=== PATIENT | female | born 1960 | race Caucasian/White ===

== ENCOUNTER 2017-10-24 12:16 | Emergency (ER) | payer OTHER, MEDICAID, SELFPAY ==
[2017-10-24 12:29] VITALS: BP 128/80; PULSE 98; RESP 22; TEMP 36.4; O2SAT 99; BMI 28.3
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
--- NOTE | 2017-10-24 13:13 | DI.RAD.S_ITS ---
PROCEDURE: XR CHEST 2V INDICATIONS: right rib pain s/p fall TECHNIQUE: 2 views of the chest were acquired. COMPARISON: [facility], , CHEST 1 VIEW, 09/07/2017, 12:30. FINDINGS: Surgical changes and devices: None. Lungs and pleura: No pleural effusions or pneumothorax. Lungs are clear. Mediastinum: Mediastinal contours are normal. Heart size is normal. Bones and chest wall: No suspicious bony abnormalities. Soft tissues appear unremarkable. IMPRESSION: No trauma found, sources right-sided rib pain is not seen. Dictated by: Michael Deluca M.D. on 10/24/2017 at 14:15 Approved by: Michael Deluca M.D. on 10/24/2017 at 14:15
[2017-10-24] MEDS: OXYCODONE/ACETAMINOPHEN 5/325 TABLET 2 TAB PO (13:25)
[2017-10-24] MEDS: IBUPROFEN 400 MG TABLET 800 MG PO (13:26)
[2017-10-24] MEDS: diazePAM 5 MG TABLET PO (13:27)
[2017-10-24 14:27] VITALS: BP 99/66; PULSE 77; RESP 18; O2SAT 96
[2017-10-24 15:08] VITALS: BP 100/70; PULSE 78; RESP 16; O2SAT 98
== END 2017-10-24 15:10 | disposition home or self-care (01) ==
PROVIDERS: Emergency Provider Internal Medicine; PCP Internal Medicine
DX: S20.219A Contusion of unspecified front wall of thorax, initial encounter (principal); W54.1XXA Struck by dog, initial encounter
CPT/HCPCS: 71046; 99283

== ENCOUNTER 2017-10-29 20:29 | Emergency (ER) | payer OTHER, MEDICAID, SELFPAY ==
[2017-10-29 20:34] VITALS: BP 121/74; PULSE 96; RESP 18; TEMP 36.8; O2SAT 98; BMI 28.1
--- NOTE | 2017-10-29 20:44 | ED.BACK ---
HPI - Back Pain/Injury <Adilene Gonzalez PA-C - Last Filed: 10/29/17 22:03> General Chief Complaint: Back Pain/Injury Stated Complaint: RT RIB PAIN FALL 1 WEEK AGO Time Seen by Provider: 10/29/17 20:34 Source: patient and other (pharmacist) Mode of arrival: ambulatory Limitations: no limitations History of Present Illness HPI Narrative: This 57 year old female returns due to persistent right rib pain. I saw her last week, and she was unable to get her prescription due to needing a prior authorization with insurance. Her PCP did that after seen there on Wednesday. She saw him again today and he sent in a refill of Percocet to use instead of her regular [place], and again this could not be filled without prior authorization. Her doctor's office to the paperwork however when pharmacy tried to put this through still not getting approved. Her PCP Dr. Alves called her at home and advised her to come to the ED because he was unable to treat her pain due to the insurance issue. She denies any other new injury. She denies any new wheeze, dyspnea, cough or fever though she states it is still hard to take a deep breath due to rib pain, and she still feels a sort of bubbling sensation at times on the right side. She states that pain medications were helping significantly, but she has not had any today aside from taking ibuprofen earlier at home. Related Data Home Medications Medication Instructions Recorded Confirmed gabapentin 100 mg PO HS #0 05/25/17 acyclovir [Zovirax] 800 mg #0 09/07/17 albuterol sulfate [Proventil HFA] 1 puff INH #0 09/07/17 ascorbic acid (vitamin C) 2 tab PO QDAY #0 09/07/17 beclomethasone dipropionate [Qvar] 1 puff INH BID #0 09/07/17 calcium carbonate 1 tab PO QDAY #0 09/07/17 hydrocodone-acetaminophen 1 tab PO TIDP PRN #0 09/07/17 ibuprofen #0 09/07/17 levetiracetam [Keppra] 250 mg PO BID #0 09/07/17 lisinopril 2.5 mg PO MoWeFr #0 09/07/17 multivitamin [Multiple Vitamins] 1 tab PO QDAY #0 09/07/17 omega 8-soi-nza-fish oil [Fish Oil] 1,000 mg PO QDAY #0 09/07/17 vitamin B complex [B 1 tab PO QDAY #0 09/07/17 Complex-Vitamin B12] alprazolam 0.25 mg PO PRN 10/29/17 Previous Rx's Medication Instructions Recorded diazepam [Valium] 5 mg PO Q8H PRN #7 tab 10/24/17 oxycodone-acetaminophen [Percocet] 1 tab PO Q4-6H PRN #8 tab 10/24/17 Allergies Allergy/AdvReac Type Severity Reaction Status Date / Time cheese [CHEESE] Allergy Unknown Verified 10/29/17 20:45 codeine [CODEINE] Allergy Unknown Verified 10/29/17 20:45 Sulfa (Sulfonamide Allergy Unknown Verified 10/29/17 20:45 Antibiotics) [SULFA (SULFONAMIDE ANTIBIOTICS)] DARK CHOCOLATE Allergy Unknown Uncoded 09/08/17 12:22 Review of Systems <Adilene Gonzalez PA-C - Last Filed: 10/29/17 22:03> Review of Systems All systems reviewed & are unremarkable except as noted in HPI and below Exam <Adilene Gonzalez PA-C - Last Filed: 10/29/17 22:03> Narrative Exam Narrative: GENERAL APPEARANCE: Patient sitting comfortably, in no distress, tearful at times NECK/THYROID: Neck supple LUNGS: Clear to auscultation bilaterally. HEART: Regular rate and rhythm without murmur, normal S1, S2, no S3 or S4. CHEST: Tender to touch over R. inferior ribs midline to lateral ABDOMEN: Soft, NT, ND, + BS x 4 quadrants EXTREMITIES: No cyanosis or edema. NEUROLOGIC: Alert and oriented, normal speech, gait and coordination. Initial Vital Signs Initial Vital Signs: Vital Signs Temperature 98.2 F 10/29/17 20:34 Pulse Rate 96 H 10/29/17 20:34 Respiratory Rate 18 10/29/17 20:34 Blood Pressure 121/74 H 10/29/17 20:34 Pulse Oximetry 98 10/29/17 20:34 Vital signs prior to discharge: BP 102/68, pulse 79 <Cedrick Vaughn DO - Last Filed: 10/29/17 22:15> Initial Vital Signs Initial Vital Signs: Vital Signs Temperature 98.2 F 10/29/17 20:34 Pulse Rate 96 H 10/29/17 20:34 Respiratory Rate 18 10/29/17 20:34 Blood Pressure 121/74 H 10/29/17 20:34 Pulse Oximetry 98 10/29/17 20:34 Course <Adilene Gonzalez PA-C - Last Filed: 10/29/17 22:03> Hospital Course: I spoke with patient's pharmacy. They verified patient's account of this and inability to fill her valid prescription she has not received controlled substances other than from her PCP. She was given medication here. She was given a Percocet prepack to take home to use for the next 2 nights over the weekend and she will follow up with her PCP on Wednesday as planned Orders Ordered: Discontinued Medications Diazepam (Valium) 5 mg PO NOW ONE Stop: 10/29/17 20:57 Last Admin: 10/29/17 21:07 Dose: 5 mg Ibuprofen (Advil) 800 mg PO NOW ONE Stop: 10/29/17 20:57 Last Admin: 10/29/17 21:06 Dose: 800 mg Oxycodone/Acetaminophen (Percocet 5/325) 2 tab PO NOW ONE Stop: 10/29/17 20:57 Last Admin: 10/29/17 21:07 Dose: 2 tab Oxycodone/Acetaminophen (Endocet 5/325 Prepack) 1 bottle MISC SEEINSTR ONE Stop: 10/29/17 21:09 Last Admin: 10/29/17 22:00 Dose: 1 bottle Vital Signs - 8 hr 10/29/17 20:34 10/29/17 21:49 Temperature 98.2 F Pulse Rate 96 H 84 Respiratory Rate 18 16 Blood Pressure 121/74 H Blood Pressure [Right Arm] 102/68 Pulse Oximetry 98 98 <Cedrick Vaughn DO - Last Filed: 10/29/17 22:15> Orders Ordered: Discontinued Medications Diazepam (Valium) 5 mg PO NOW ONE Stop: 10/29/17 20:57 Last Admin: 10/29/17 21:07 Dose: 5 mg Ibuprofen (Advil) 800 mg PO NOW ONE Stop: 10/29/17 20:57 Last Admin: 10/29/17 21:06 Dose: 800 mg Oxycodone/Acetaminophen (Percocet 5/325) 2 tab PO NOW ONE Stop: 10/29/17 20:57 Last Admin: 10/29/17 21:07 Dose: 2 tab Oxycodone/Acetaminophen (Endocet 5/325 Prepack) 1 bottle MISC SEEINSTR ONE Stop: 10/29/17 21:09 Last Admin: 10/29/17 22:00 Dose: 1 bottle Vital Signs - 8 hr 10/29/17 20:34 10/29/17 21:49 Temperature 98.2 F Pulse Rate 96 H 84 Respiratory Rate 18 16 Blood Pressure 121/74 H Blood Pressure [Right Arm] 102/68 Pulse Oximetry 98 98 Discharge Plan Departure Patient Disposition: Home, Self-Care Clinical Impression: Contusion of ribs Discharge Date/Time: 10/29/17 22:06 Interventions: ED Discharge Assessment Last Done: 10/29/17 22:05 Instructions: DI for Rib Contusion Activity Restrictions/Additional Instructions: Continue Ibuprofen every 8 hours and you have the percocet to take at night for the next couple of days until you can follow up with Dr. Alves. You should return as we have talked about if you have acutely worsening symptoms such as shortness of breath. You may want to try adding the over the counter 4% lidocaine patches to help with pain. You may want to take with Dr. Alves about prescribing a larger quantity of pain medicine if he thinks you will need it because this may be a timing rather than quantity issue with your insurance Prescriptions: No Action gabapentin 100 MG capsule 100 mg PO HS Qty: 0 RF: 0 hydrocodone-acetaminophen 5 MG/325 MG tablet 1 tab PO TIDP PRN (Reason: Pain (Scale Score 7-10)) Qty: 0 RF: 0 levetiracetam [Keppra] 250 MG tablet 250 mg PO BID Qty: 0 RF: 0 albuterol sulfate [Proventil HFA] 90 MCG/PUFF HFA aerosol inhaler 1 puff INH Qty: 0 RF: 0 beclomethasone dipropionate [Qvar] 80 MCG/PUFF aerosol 1 puff INH BID Qty: 0 RF: 0 acyclovir [Zovirax] 800 MG tablet 800 mg Qty: 0 RF: 0 multivitamin [Multiple Vitamins] 1 EACH tablet 1 tab PO QDAY Qty: 0 RF: 0 ibuprofen 200 MG tablet Qty: 0 RF: 0 lisinopril 2.5 MG tablet 2.5 mg PO MoWeFr Qty: 0 RF: 0 calcium carbonate 500 MG tablet 1 tab PO QDAY Qty: 0 RF: 0 omega 9-wwf-uje-fish oil [Fish Oil] 1,000 MG capsule 1,000 mg PO QDAY Qty: 0 RF: 0 ascorbic acid (vitamin C) 500 MG tablet 2 tab PO QDAY Qty: 0 RF: 0 vitamin B complex [B Complex-Vitamin B12] 1 EACH tablet 1 tab PO QDAY Qty: 0 RF: 0 oxycodone-acetaminophen [Percocet] 5-325 mg tablet 1 tab PO Q4-6H PRN (Reason: pain) Qty: 8 RF: 0 diazepam [Valium] 5 mg tablet 5 mg PO Q8H PRN (Reason: muscle pain) Qty: 7 RF: 0 alprazolam 0.25 mg Tablet 0.25 mg PO PRN (Reason: Anxiety) RF: 0 Referrals: Rachell Alves MD [Primary Care Provider] - <Cedrick Vaughn DO - Last Filed: 10/29/17 22:15> Cosign ED Attending Abi Attestation: I was available for consultation during this patient's emergency department encounter
[2017-10-29] MEDS: IBUPROFEN 400 MG TABLET 800 MG PO (21:06)
[2017-10-29] MEDS: OXYCODONE/ACETAMINOPHEN 5/325 TABLET 2 TAB PO (21:07)
[2017-10-29] MEDS: diazePAM 5 MG TABLET PO (21:07)
[2017-10-29 21:49] VITALS: BP 102/68; PULSE 84; RESP 16; O2SAT 98
[2017-10-29] MEDS: OXYCODONE/APAP 5/325 PREPACK 1 BOTTLE MISC (22:00)
== END 2017-10-29 22:06 | disposition home or self-care (01) ==
PROVIDERS: Emergency Provider Internal Medicine; PCP Internal Medicine
DX: S20.211D Contusion of right front wall of thorax, subsequent encounter (principal); W19.XXXD Unspecified fall, subsequent encounter
CPT/HCPCS: 99282; 99283

== ENCOUNTER 2017-11-10 11:38 | Emergency (ER) | payer OTHER, MEDICAID, SELFPAY ==
[2017-11-10 11:45] VITALS: BP 129/85; PULSE 102; RESP 18; TEMP 37.2; O2SAT 96
--- NOTE | 2017-11-10 11:58 | PC.NURSE ---
c/o bilateral lower extremity swelling. No swelling noted at this time. + pedal pulses bilaterally w/ good cap refill < 2 sec. Skin is pink / warm and dry.
--- NOTE | 2017-11-10 12:09 | ED.FALL ---
HPI - Fall <An Sebastian CAR SALESPERSON-BC - Last Filed: 11/10/17 19:08> General Chief Complaint: Trauma Stated Complaint: RIB PAIN, LEG SWELLING Time Seen by Provider: 11/10/17 12:08 Source: patient Mode of arrival: ambulatory Limitations: no limitations History of Present Illness HPI Narrative: Patient presents after a fall last month. She has had several visits to various emergency departments and her primary care provider. She has been diagnosed with rib contusion. She states she has taken oxycodone and hydrocodone for the pain. She is concerned that she is still having rib pain underneath her breasts. She states that this pain is not improved enough since her fall. She has a prior she is taking the soft recover. She is also using Tylenol, ice. She denies any trouble breathing but complains of trouble taking a deep breath. She denies any substernal chest pain unless she is taking deep breath. She denies any fevers, nausea, vomiting, diarrhea or belly pain. She also complains of swelling noted in her face, hands and feet. This went away yesterday. This is gone on since a week after accident. Original injury last week of September. Related Data Home Medications Medication Instructions Recorded Confirmed gabapentin 100 mg PO HS #0 05/25/17 11/10/17 albuterol sulfate [Proventil HFA] 1 puff INH Q4-6H PRN #0 09/07/17 11/10/17 ascorbic acid (vitamin C) 2 tab PO QDAY #0 09/07/17 11/10/17 calcium carbonate 1 tab PO QDAY #0 09/07/17 11/10/17 hydrocodone-acetaminophen 1 tab PO TIDP PRN #0 09/07/17 11/10/17 ibuprofen 200 mg PO QID PRN #0 09/07/17 11/10/17 levetiracetam [Keppra] 250 mg PO BID #0 09/07/17 11/10/17 multivitamin [Multiple Vitamins] 1 tab PO QDAY #0 09/07/17 11/10/17 omega 6-ojd-gyp-fish oil [Fish Oil] 1,000 mg PO QDAY #0 09/07/17 11/10/17 vitamin B complex [B 1 tab PO QDAY #0 09/07/17 11/10/17 Complex-Vitamin B12] alprazolam 0.25 mg PO BID PRN 10/29/17 11/10/17 Allergies Allergy/AdvReac Type Severity Reaction Status Date / Time cheese [CHEESE] Allergy Unknown Verified 11/10/17 11:45 codeine [CODEINE] Allergy Unknown Verified 11/10/17 11:45 Sulfa (Sulfonamide Allergy Unknown Verified 11/10/17 11:45 Antibiotics) [SULFA (SULFONAMIDE ANTIBIOTICS)] DARK CHOCOLATE Allergy Unknown Uncoded 11/10/17 11:45 Review of Systems <TOMY Haas- - Last Filed: 11/10/17 19:08> Review of Systems GENERAL: See HPI HEENT: Denies sinus pain, ear pain, sore throat, difficulty swallowing, dizziness. RESPIRATORY: Denies dyspnea, cough, wheezing, hemoptysis, sputum. CARDIOVASCULAR: Denies chest pain, palpitations, orthopnea, edema, GASTROINTESTINAL: Denies nausea, vomiting, abdominal pain, diarrhea, constipation, melena. : Denies dysuria, frequency, incontinence, hematuria, urinary retention. MUSCULOSKELETAL: See HPI SKIN: Denies rash, skin lesions, or other NEUROLOGIC: Denies weakness, headache, numbness, change in speech, confusion, seizures, incoordination. PSYCHIATRIC: No concerning psychosocial issues. 12 point review of systems is negative except for those stated above Exam <TOMY Haas- - Last Filed: 11/10/17 19:08> Narrative Exam Narrative: GENERAL: This is a well-nourished, well-developed patient, sitting on the side of her bed. HEAD: Atraumatic. Normocephalic. No temporal or scalp tenderness. EYES: Pupils equal round and reactive. Extraocular motions intact. No scleral icterus. No injection or drainage. ENT: Nose without bleeding, purulent drainage or septal hematoma. Throat without erythema, tonsillar hypertrophy or exudate. Uvula midline. Airway patent. NECK: Trachea midline. No JVD or lymphadenopathy. Supple, nontender, no meningeal signs. CARDIOVASCULAR: Regular rate and rhythm without murmurs, gallops, or rubs. RESPIRATORY: Clear to auscultation. Breath sounds equal bilaterally. No wheezes, rales, or rhonchi. GASTROINTESTINAL: Abdomen soft, non-tender, nondistended. No hepato-splenomegaly, or palpable masses. No guarding. EXTREMITIES: No clubbing, cyanosis, or edema. No joint tenderness, effusion, or edema noted. No edema noted in face, hands or feet. BACK: Nontender without deformity or crepitance. No flank tenderness. She does have pain on anterior posterior chest compression. She does not have any pain on lateral chest compression. She has pain on palpation of lower ribs bilaterally. NEURO: AOx3. SKIN: No rash or erythema. No ecchymosis or erythema noted by her ribs. Initial Vital Signs Initial Vital Signs: Vital Signs Temperature 99.0 F 11/10/17 11:45 Pulse Rate 102 H 11/10/17 11:45 Respiratory Rate 18 11/10/17 11:45 Blood Pressure 129/85 H 11/10/17 11:45 Pulse Oximetry 96 11/10/17 11:45 <Venice Cook DO - Last Filed: 11/12/17 07:23> Initial Vital Signs Initial Vital Signs: Vital Signs Temperature 99.0 F 11/10/17 11:45 Pulse Rate 102 H 11/10/17 11:45 Respiratory Rate 18 11/10/17 11:45 Blood Pressure 129/85 H 11/10/17 11:45 Pulse Oximetry 96 11/10/17 11:45 Course <ADNILO Haas - Last Filed: 11/10/17 19:08> Hospital Course: Patient presents with rib pain since her injury during late September. She has been evaluated about 4-5 times in the past few weeks. She does not want any further x-rays at this point time. Her exam is benign. Her vital signs are stable. She does not have any shortness of breath. I discussed at length with patient the course of recovering from rib contusions. She expressed gratitude for my explanation of a long recovery period. Discussed at length with patient follow up with primary care. Vital Signs - 8 hr 11/10/17 11:45 11/10/17 13:37 Temperature 99.0 F Pulse Rate 102 H 87 Respiratory Rate 18 15 Blood Pressure 129/85 H Blood Pressure [Left Arm] 137/74 H Pulse Oximetry 96 97 <Venice Cook DO - Last Filed: 11/12/17 07:23> Vital Signs - 8 hr 11/10/17 11:45 11/10/17 13:37 Temperature 99.0 F Pulse Rate 102 H 87 Respiratory Rate 18 15 Blood Pressure 129/85 H Blood Pressure [Left Arm] 137/74 H Pulse Oximetry 96 97 MDM - Fall <TOMY Haas- - Last Filed: 11/10/17 19:08> [facility] Narrative Medical decision making narrative: Patient presents with pain from rib contusions in late September. She does not want imaging at this time. This changes my ability to evaluate her for any new etiology. However her at long recovery. This consistent with an injury rib contusion. I encouraged pain medication as she is taking. I encourage continued ibuprofen, as well as ice and or heat. Discussed coming back to the emergency department if she had any chest pain or shortness of breath. Also suggested following up with primary care provider. Discharge Plan Departure Patient Disposition: Home, Self-Care Clinical Impression: Contusion of rib Discharge Date/Time: 11/10/17 13:42 Interventions: ED Discharge Assessment Last Done: 11/10/17 13:41 Instructions: DI for Rib Contusion Activity Restrictions/Additional Instructions: Rib contusions can take a long time to heal. Today you declined additional imaging. Continue to take pain medication as needed, be sure to take deep breaths, use ice and/or heat. Follow up with your primary care provider as we discussed. Prescriptions: No Action gabapentin 100 MG capsule 100 mg PO HS Qty: 0 RF: 0 hydrocodone-acetaminophen 5 MG/325 MG tablet 1 tab PO TIDP PRN (Reason: Pain (Scale Score 7-10)) Qty: 0 RF: 0 levetiracetam [Keppra] 250 MG tablet 250 mg PO BID Qty: 0 RF: 0 albuterol sulfate [Proventil HFA] 90 MCG/PUFF HFA aerosol inhaler 1 puff INH Q4-6H PRN (Reason: Wheezing) Qty: 0 RF: 0 multivitamin [Multiple Vitamins] 1 EACH tablet 1 tab PO QDAY Qty: 0 RF: 0 ibuprofen 200 MG tablet 200 mg PO QID PRN (Reason: Pain (Scale Score 1-3)) Qty: 0 RF: 0 calcium carbonate 500 MG tablet 1 tab PO QDAY Qty: 0 RF: 0 omega 1-ian-vti-fish oil [Fish Oil] 1,000 MG capsule 1,000 mg PO QDAY Qty: 0 RF: 0 ascorbic acid (vitamin C) 500 MG tablet 2 tab PO QDAY Qty: 0 RF: 0 vitamin B complex [B Complex-Vitamin B12] 1 EACH tablet 1 tab PO QDAY Qty: 0 RF: 0 alprazolam 0.25 mg Tablet 0.25 mg PO BID PRN (Reason: Anxiety) RF: 0 Referrals: Rachell Alves MD [Primary Care Provider] - <Venice Cook DO - Last Filed: 11/12/17 07:23> Cosign ED Attending Ezioature Attestation: I was immediately available in the department for consultation. Documentation has been reviewed. I agree with assessment and plan.
[2017-11-10 13:37] VITALS: BP 137/74; PULSE 87; RESP 15; O2SAT 97
--- NOTE | 2017-11-10 13:37 | ED_ITS ---
HPI - Fall <nA Sebastian OWNER CONSULTING ENGINEER-BC - Last Filed: 11/10/17 19:08> General Chief Complaint: Trauma Stated Complaint: RIB PAIN, LEG SWELLING Time Seen by Provider: 11/10/17 12:08 Source: patient Mode of arrival: ambulatory Limitations: no limitations History of Present Illness HPI Narrative: Patient presents after a fall last month. She has had several visits to various emergency departments and her primary care provider. She has been diagnosed with rib contusion. She states she has taken oxycodone and hydrocodone for the pain. She is concerned that she is still having rib pain underneath her breasts. She states that this pain is not improved enough since her fall. She has a prior she is taking the soft recover. She is also using Tylenol, ice. She denies any trouble breathing but complains of trouble taking a deep breath. She denies any substernal chest pain unless she is taking deep breath. She denies any fevers, nausea, vomiting, diarrhea or belly pain. She also complains of swelling noted in her face, hands and feet. This went away yesterday. This is gone on since a week after accident. Original injury last week of September. Related Data Home Medications Medication Instructions Recorded Confirmed gabapentin 100 mg PO HS #0 05/25/17 11/10/17 albuterol sulfate [Proventil HFA] 1 puff INH Q4-6H PRN #0 09/07/17 11/10/17 ascorbic acid (vitamin C) 2 tab PO QDAY #0 09/07/17 11/10/17 calcium carbonate 1 tab PO QDAY #0 09/07/17 11/10/17 hydrocodone-acetaminophen 1 tab PO TIDP PRN #0 09/07/17 11/10/17 ibuprofen 200 mg PO QID PRN #0 09/07/17 11/10/17 levetiracetam [Keppra] 250 mg PO BID #0 09/07/17 11/10/17 multivitamin [Multiple Vitamins] 1 tab PO QDAY #0 09/07/17 11/10/17 omega 4-diy-fwb-fish oil [Fish Oil] 1,000 mg PO QDAY #0 09/07/17 11/10/17 vitamin B complex [B 1 tab PO QDAY #0 09/07/17 11/10/17 Complex-Vitamin B12] alprazolam 0.25 mg PO BID PRN 10/29/17 11/10/17 Allergies Allergy/AdvReac Type Severity Reaction Status Date / Time cheese [CHEESE] Allergy Unknown Verified 11/10/17 11:45 codeine [CODEINE] Allergy Unknown Verified 11/10/17 11:45 Sulfa (Sulfonamide Allergy Unknown Verified 11/10/17 11:45 Antibiotics) [SULFA (SULFONAMIDE ANTIBIOTICS)] DARK CHOCOLATE Allergy Unknown Uncoded 11/10/17 11:45 Review of Systems <TOMY Haas- - Last Filed: 11/10/17 19:08> Review of Systems GENERAL: See HPI HEENT: Denies sinus pain, ear pain, sore throat, difficulty swallowing, dizziness. RESPIRATORY: Denies dyspnea, cough, wheezing, hemoptysis, sputum. CARDIOVASCULAR: Denies chest pain, palpitations, orthopnea, edema, GASTROINTESTINAL: Denies nausea, vomiting, abdominal pain, diarrhea, constipation, melena. : Denies dysuria, frequency, incontinence, hematuria, urinary retention. MUSCULOSKELETAL: See HPI SKIN: Denies rash, skin lesions, or other NEUROLOGIC: Denies weakness, headache, numbness, change in speech, confusion, seizures, incoordination. PSYCHIATRIC: No concerning psychosocial issues. 12 point review of systems is negative except for those stated above Exam <TOMY Haas- - Last Filed: 11/10/17 19:08> Narrative Exam Narrative: GENERAL: This is a well-nourished, well-developed patient, sitting on the side of her bed. HEAD: Atraumatic. Normocephalic. No temporal or scalp tenderness. EYES: Pupils equal round and reactive. Extraocular motions intact. No scleral icterus. No injection or drainage. ENT: Nose without bleeding, purulent drainage or septal hematoma. Throat without erythema, tonsillar hypertrophy or exudate. Uvula midline. Airway patent. NECK: Trachea midline. No JVD or lymphadenopathy. Supple, nontender, no meningeal signs. CARDIOVASCULAR: Regular rate and rhythm without murmurs, gallops, or rubs. RESPIRATORY: Clear to auscultation. Breath sounds equal bilaterally. No wheezes , rales, or rhonchi. GASTROINTESTINAL: Abdomen soft, non-tender, nondistended. No hepato-splenomegaly , or palpable masses. No guarding. EXTREMITIES: No clubbing, cyanosis, or edema. No joint tenderness, effusion, or edema noted. No edema noted in face, hands or feet. BACK: Nontender without deformity or crepitance. No flank tenderness. She does have pain on anterior posterior chest compression. She does not have any pain on lateral chest compression. She has pain on palpation of lower ribs bilaterally. NEURO: AOx3. SKIN: No rash or erythema. No ecchymosis or erythema noted by her ribs. Initial Vital Signs Initial Vital Signs: Vital Signs Temperature 99.0 F 11/10/17 11:45 Pulse Rate 102 H 11/10/17 11:45 Respiratory Rate 18 11/10/17 11:45 Blood Pressure 129/85 H 11/10/17 11:45 Pulse Oximetry 96 11/10/17 11:45 <Venice Cook DO - Last Filed: 11/12/17 07:23> Initial Vital Signs Initial Vital Signs: Vital Signs Temperature 99.0 F 11/10/17 11:45 Pulse Rate 102 H 11/10/17 11:45 Respiratory Rate 18 11/10/17 11:45 Blood Pressure 129/85 H 11/10/17 11:45 Pulse Oximetry 96 11/10/17 11:45 Course <DANILO Haas - Last Filed: 11/10/17 19:08> Hospital Course: Patient presents with rib pain since her injury during late September. She has been evaluated about 4-5 times in the past few weeks. She does not want any further x-rays at this point time. Her exam is benign. Her vital signs are stable. She does not have any shortness of breath. I discussed at length with patient the course of recovering from rib contusions. She expressed gratitude for my explanation of a long recovery period. Discussed at length with patient follow up with primary care. Vital Signs - 8 hr 11/10/17 11:45 11/10/17 13:37 Temperature 99.0 F Pulse Rate 102 H 87 Respiratory Rate 18 15 Blood Pressure 129/85 H Blood Pressure [Left Arm] 137/74 H Pulse Oximetry 96 97 <Venice Cook DO - Last Filed: 11/12/17 07:23> Vital Signs - 8 hr 11/10/17 11:45 11/10/17 13:37 Temperature 99.0 F Pulse Rate 102 H 87 Respiratory Rate 18 15 Blood Pressure 129/85 H Blood Pressure [Left Arm] 137/74 H Pulse Oximetry 96 97 MDM - Fall <TOMY Haas- - Last Filed: 11/10/17 19:08> [facility] Narrative Medical decision making narrative: Patient presents with pain from rib contusions in late September. She does not want imaging at this time. This changes my ability to evaluate her for any new etiology. However her at long recovery. This consistent with an injury rib contusion. I encouraged pain medication as she is taking. I encourage continued ibuprofen, as well as ice and or heat. Discussed coming back to the emergency department if she had any chest pain or shortness of breath. Also suggested following up with primary care provider. Discharge Plan Departure Patient Disposition: Home, Self-Care Clinical Impression: Contusion of rib Discharge Date/Time: 11/10/17 13:42 Interventions: ED Discharge Assessment Last Done: 11/10/17 13:41 Instructions: DI for Rib Contusion Activity Restrictions/Additional Instructions: Rib contusions can take a long time to heal. Today you declined additional imaging. Continue to take pain medication as needed, be sure to take deep breaths, use ice and/or heat. Follow up with your primary care provider as we discussed. Prescriptions: No Action gabapentin 100 MG capsule 100 mg PO HS Qty: 0 RF: 0 hydrocodone-acetaminophen 5 MG/325 MG tablet 1 tab PO TIDP PRN (Reason: Pain (Scale Score 7-10)) Qty: 0 RF: 0 levetiracetam [Keppra] 250 MG tablet 250 mg PO BID Qty: 0 RF: 0 albuterol sulfate [Proventil HFA] 90 MCG/PUFF HFA aerosol inhaler 1 puff INH Q4-6H PRN (Reason: Wheezing) Qty: 0 RF: 0 multivitamin [Multiple Vitamins] 1 EACH tablet 1 tab PO QDAY Qty: 0 RF: 0 ibuprofen 200 MG tablet 200 mg PO QID PRN (Reason: Pain (Scale Score 1-3)) Qty: 0 RF: 0 calcium carbonate 500 MG tablet 1 tab PO QDAY Qty: 0 RF: 0 omega 1-awd-qpw-fish oil [Fish Oil] 1,000 MG capsule 1,000 mg PO QDAY Qty: 0 RF: 0 ascorbic acid (vitamin C) 500 MG tablet 2 tab PO QDAY Qty: 0 RF: 0 vitamin B complex [B Complex-Vitamin B12] 1 EACH tablet 1 tab PO QDAY Qty: 0 RF: 0 alprazolam 0.25 mg Tablet 0.25 mg PO BID PRN (Reason: Anxiety) RF: 0 Referrals: Rachell Alves MD [Primary Care Provider] - <Venice Cook DO - Last Filed: 11/12/17 07:23> Cosign ED Attending Ezioature Attestation: I was immediately available in the department for consultation. Documentation has been reviewed. I agree with assessment and plan.
== END 2017-11-10 13:42 | disposition home or self-care (01) ==
PROVIDERS: Emergency Provider Nurse Practitioner Family; PCP Internal Medicine
DX: S20.219A Contusion of unspecified front wall of thorax, initial encounter (principal); W19.XXXA Unspecified fall, initial encounter
CPT/HCPCS: 99282

== ENCOUNTER 2017-12-29 13:59 | Emergency (ER) | payer OTHER, MEDICAID, SELFPAY ==
[2017-12-29 14:04] VITALS: BP 143/80; PULSE 84; RESP 18; TEMP 37.1; O2SAT 95
--- NOTE | 2017-12-29 14:13 | ED_ITS ---
HPI - Chest Pain <Tonny GarciaMARTIN wyatt - Last Filed: 12/29/17 22:30> General Chief Complaint: Chest Pain Stated Complaint: L side rib pain Time Seen by Provider: 12/29/17 14:08 History of Present Illness HPI narrative: 57-year-old female here for complaint of pain into her left lateral abdominal wall for the last several weeks. She denies any trauma to the area. She denies any stressors or relievers of her pain. She is been seen for pain into her ribcage area multiple times as well. Positive p.o. intake. Last bowel movement was yesterday and was unremarkable. She denies any urinary symptoms. No nausea or vomiting. She denies any fevers or chills. She denies any other concerns or complaints at this time. Related Data Home Medications Medication Instructions Recorded Confirmed gabapentin 100 mg PO HS #0 05/25/17 12/29/17 albuterol sulfate [Proventil HFA] 1 puff INH Q4-6H PRN #0 09/07/17 12/29/17 ascorbic acid (vitamin C) 2 tab PO QDAY #0 09/07/17 12/29/17 calcium carbonate 1 tab PO QDAY #0 09/07/17 12/29/17 ibuprofen 200 mg PO QID PRN #0 09/07/17 12/29/17 levetiracetam [Keppra] 750 mg PO BID #0 09/07/17 12/29/17 multivitamin [Multiple Vitamins] 1 tab PO QDAY #0 09/07/17 12/29/17 omega 9-cru-vff-fish oil [Fish Oil] 1,000 mg PO QDAY #0 09/07/17 12/29/17 vitamin B complex [B 1 tab PO QDAY #0 09/07/17 12/29/17 Complex-Vitamin B12] alprazolam 0.25 mg PO TID 10/29/17 12/29/17 hydrocodone-acetaminophen 1 tab PO TID PRN 12/29/17 12/29/17 Previous Rx's Medication Instructions Recorded nitrofurantoin monohyd/m-cryst 100 mg PO Q12H #14 cap 12/29/17 [Macrobid] Allergies Allergy/AdvReac Type Severity Reaction Status Date / Time cheese [CHEESE] Allergy Unknown Verified 11/10/17 11:45 codeine [CODEINE] Allergy Unknown Verified 11/10/17 11:45 Sulfa (Sulfonamide Allergy Unknown Verified 11/10/17 11:45 Antibiotics) [SULFA (SULFONAMIDE ANTIBIOTICS)] DARK CHOCOLATE Allergy Unknown Uncoded 11/10/17 11:45 Review of Systems <MARTIN Vazquez - Last Filed: 12/29/17 22:30> Constitutional Denies chills, Denies fever(s), Denies lethargy and Denies weakness Eyes Denies change in vision, Denies eye discharge, Denies irritation and Denies loss of vision ENT Ears, Nose, Mouth, and Throat: Denies change in voice, Denies neck pain and Denies sore throat Cardiovascular Denies chest pain, Denies irregular heart rhythm, Denies lightheadedness, Denies palpitations, Denies dyspnea, Denies dyspnea on exertion and Denies orthopnea Respiratory Denies cough, Denies dyspnea, Denies dyspnea on exertion and Denies wheezing Gastrointestinal Gastrointestinal: Reports abdominal pain Genitourinary Denies hematuria, Denies flank pain, Denies urinary incontinence and Denies urinary urgency Musculoskeletal Denies neck pain Integumentary/Breasts Denies pruritus, Denies erythema, Denies rash and Denies wounds Neurologic Denies confusion, Denies loss of vision and Denies weakness Psychiatric Denies anxiety, Denies confusion, Denies depression, Denies homicidal ideation and Denies suicidal ideation Endocrine Denies palpitations Hematologic/Lymphatic Denies easy bruising Allergic/Immunologic Denies wheezing Exam <MARTIN Vazquez - Last Filed: 12/29/17 22:30> Initial Vital Signs Initial Vital Signs: Vital Signs Temperature 98.8 F 12/29/17 14:04 Pulse Rate 84 12/29/17 14:04 Respiratory Rate 18 12/29/17 14:04 Blood Pressure 143/80 H 12/29/17 14:04 Pulse Oximetry 95 12/29/17 14:04 Const General: cooperative and well developed Nutritional Appearance: well nourished Orientation: alert, awake, oriented x3 and not confused HENMT Mouth: oral mucosae normal and moist mucous membranes Eyes Conjunctivae: conjunctivae normal Sclera: sclerae normal Pupils: PERRL EOM: EOM intact bilaterally Resp Effort & Inspection: normal respiratory effort, able to speak in complete sentences, no respiratory distress and no use of accessory muscles Auscultation: clear to auscultation bilaterally, no rales, no rhonchi and no wheezes Cardio Rate: regular rate Rhythm: regular rhythm Heart Sounds: no click, no gallops, no murmurs and no rubs GI Inspection: normal to inspection Palpation: soft, no hepatosplenomegaly, No guarding, No hernia, No mass, No pulsatile mass, No rigid and tender (Tenderness to the left lateral abdomen) Auscultation: normal bowel sounds Rectal Exam: visual inspection normal General: No CVA tenderness Back/Spine/Pelvis Back: No CVA tenderness Cervical Spine: cervical ROM normal and No pain with cervical ROM Thoracic/Lumbar Spine: thoracic and lumbar spine normal to inspection Skin General: no rashes or lesions noted, No jaundice and No petechiae Neuro General: alert, oriented x3, gait normal and no focal motor deficits Speech: speech normal Extrem General: full ROM, no clubbing, cyanosis or edema, no pedal edema and no calf tenderness <Cedrick Vaughn DO - Last Filed: 01/04/18 18:22> Initial Vital Signs Initial Vital Signs: Vital Signs Temperature 98.8 F 12/29/17 14:04 Pulse Rate 84 12/29/17 14:04 Respiratory Rate 18 12/29/17 14:04 Blood Pressure 143/80 H 12/29/17 14:04 Pulse Oximetry 95 12/29/17 14:04 Course <MARTIN Vazquez - Last Filed: 12/29/17 22:30> Orders Ordered: Discontinued Medications Hydromorphone HCl (Dilaudid) 0.5 mg IV NOW ONE Stop: 12/29/17 15:26 Last Admin: 12/29/17 15:55 Dose: 0.5 mg Sodium Chloride (Normal Saline 0.9%) 1,000 mls @ 1,000 mls/hr IV BOLUS ONE Stop: 12/29/17 16:24 Last Infusion: 12/29/17 17:49 Dose: 0 mls/hr Admin: 12/29/17 15:55 Dose: 1,000 mls/hr Ondansetron HCl (Zofran) 4 mg IV NOW ONE Stop: 12/29/17 15:26 Last Admin: 12/29/17 15:55 Dose: 4 mg Vital Signs - 8 hr 12/29/17 15:56 12/29/17 17:50 Pulse Rate 81 78 Respiratory Rate 20 16 Blood Pressure 127/83 H Blood Pressure [Right Arm] 134/97 H Pulse Oximetry 97 98 <Cedrick Vaughn DO - Last Filed: 01/04/18 18:22> Orders Ordered: Discontinued Medications Hydromorphone HCl (Dilaudid) 0.5 mg IV NOW ONE Stop: 12/29/17 15:26 Last Admin: 12/29/17 15:55 Dose: 0.5 mg Sodium Chloride (Normal Saline 0.9%) 1,000 mls @ 1,000 mls/hr IV BOLUS ONE Stop: 12/29/17 16:24 Last Infusion: 12/29/17 17:49 Dose: 0 mls/hr Admin: 12/29/17 15:55 Dose: 1,000 mls/hr Ondansetron HCl (Zofran) 4 mg IV NOW ONE Stop: 12/29/17 15:26 Last Admin: 12/29/17 15:55 Dose: 4 mg Vital Signs - 8 hr 12/29/17 15:56 12/29/17 17:50 Pulse Rate 81 78 Respiratory Rate 20 16 Blood Pressure 127/83 H Blood Pressure [Right Arm] 134/97 H Pulse Oximetry 97 98 MDM - Chest Pain <MARTIN Vazquez - Last Filed: 12/29/17 22:30> Lab Data Result diagrams: 12/29/17 16:01 12/29/17 16:01 Lab Results 12/29/17 12/29/17 12/29/17 Range/Units 15:57 16:01 16:01 WBC 7.1 (4.5-11.0) X10^3/uL RBC 4.10 (4.0-5.2) X10^6/uL Hgb 13.8 (12.0-16.0) g/dL Hct 39.7 (36-46) % MCV 97.0 (80-100) fL MCH 33.8 (26-34) PG MCHC 34.8 (30-36) % RDW 13.6 (11.6-14.8) % Plt Count 240 (150-400) X10^3/uL Neut % (Auto) 60.2 (50-75) % Lymph % (Auto) 31.2 (25-40) % [place] % (Auto) 5.6 (3-14) % Eos % (Auto) 2.0 (2-4) % Baso % (Auto) 1.0 (0-2) % Neut # (Auto) 4300 (9258-3059) /uL Sodium 143 (137-145) mmol/L Potassium 4.5 (3.4-5.1) mmol/L Chloride 107 (98-107) mmol/L Carbon Dioxide 24 (22-32) mmol/L BUN 18 H (7-17) mg/dL Creatinine 0.60 (0.52-1.04) mg/dL Estimated GFR > 60.0 (>60) mL/min BUN/Creatinine Ratio 30.0 H (6-22) Glucose 102 H (70-100) mg/dL Calcium 9.4 (8.4-10.2) mg/dL Total Bilirubin 0.4 (0.2-1.3) mg/dL AST 29 (14-36) IU/L ALT 38 (9-52) IU/L Alkaline Phosphatase 96 (38-126) U/L Total Protein 7.7 (6.3-8.2) g/dL Albumin 4.6 (3.5-5.0) g/dL Globulin 3.1 (1.7-4.1) g/dL Albumin/Globulin Ratio 1.5 (1.0-2.8) Lipase 111 (23-300) U/L Urine RBC None seen (0-5/HPF) Urine WBC 10-30/hpf H (0-5/HPF) Ur Squamous Epith Cells 0-1 /hpf Urine Bacteria Many (>30) H (None) Ur Culture Indicated? Specimen cultured Micro UA Comment Not Reportable Imaging Data CT scan - abdomen: Radiologist's impression: Patient: Megan Bower MR#: [id number] : 1960 Acct:[id number] Age/Sex: 57 / F Date of Service: 12/29/17 Loc: ED Accession Number: [id number] Procedure: CT abdomen pelvis w con Ordering Provider: Tonny Martinez PROCEDURE: CT ABDOMEN PELVIS W CON INDICATIONS: Left lateral abdominal pain TECHNIQUE: After the administration of intravenous contrast, 5 mm thick sections acquired from the diaphragm to the symphysis. 5 mm coronal and sagittal reformats were acquired. For radiation dose reduction, the following was used: automated exposure control, adjustment of mA and/or kV according to patient size. COMPARISON: None. FINDINGS: Image quality: Excellent. ABDOMEN: Lung bases: Lung bases are clear. Heart size is normal. Solid organs: Liver is normal in size and enhancement. Gallbladder appears previously resected. Biliary system is non dilated. Pancreas enhances normally. Spleen is normal in size and enhancement. No adrenal nodules. Kidneys demonstrate normal size and enhancement, without hydronephrosis. Peritoneum and bowel: Bowel loops demonstrate normal wall thickness and caliber. No free fluid or air. Nodes and vessels: No retroperitoneal or mesenteric adenopathy by size criteria. Aorta and inferior vena cava are normal in size. Miscellaneous: No ventral hernias. PELVIS: Genitourinary: Bladder wall thickness is normal. Miscellaneous: No inguinal hernias or adenopathy. Bones: No suspicious bony lesions. No vertebral body compression fractures. IMPRESSION: Prior cholecystectomy. No sign of intestinal infection obstruction or perforation. A source of asymmetric left-sided abdominal pain is not found. Dictated by: Michael Deluca M.D. on 12/29/2017 at 16:52 Approved by: Michael Deluca M.D. on 12/29/2017 at 16:54 Chest x-ray: Radiologist's impression: PROCEDURE: XR CHEST 2V INDICATIONS: left rib pain, no injury TECHNIQUE: 2 views of the chest were acquired. COMPARISON: [facility], , CHEST 1 VIEW, 09/07/2017, 12:30. [facility], XR CHEST 2V, 10/24/2017, 12:59. FINDINGS: Surgical changes and devices: Cholecystectomy clips are seen. Lungs and pleura: On this semiupright portable chest examination, no large pneumothorax or large pleural effusions are seen. No focal infiltrates are seen. Mediastinum: Mediastinal contours are normal. Heart size is normal. Bones and chest wall: No suspicious bony abnormalities. Age-appropriate bony degenerative changes are seen. Soft tissues appear unremarkable. IMPRESSION: No acute cardiopulmonary process is seen. Postoperative and degenerative changes are seen. Dictated by: Иван Perry M.D. on 12/29/2017 at 14:39 Approved by: Иван Perry M.D. on 12/29/2017 at 14:40 MDM Narrative Medical decision making narrative: CBC and Chem panel were obtained were unremarkable. Lipase was negative. CT of the abdomen was negative for any acute findings. Chest x-ray was also obtained was negative. No emergent cause of her abdominal pain is found. Signs and symptoms presents as abdominal wall pain. Urinalysis indicates urinary tract infection. She is treated with Macrobid. Patient states that she has a history of having urinary tract infections without knowing it. Use [id number] Tylenol or Motrin as needed for any discomfort. Follow up with her primary care provider. Return emergency room for any worsening symptoms. <Cedrick Roderick, DO - Last Filed: 01/04/18 18:22> Lab Data Lab Results 12/29/17 12/29/17 12/29/17 Range/Units 15:57 16:01 16:01 WBC 7.1 (4.5-11.0) X10^3/uL RBC 4.10 (4.0-5.2) X10^6/uL Hgb 13.8 (12.0-16.0) g/dL Hct 39.7 (36-46) % MCV 97.0 (80-100) fL MCH 33.8 (26-34) PG MCHC 34.8 (30-36) % RDW 13.6 (11.6-14.8) % Plt Count 240 (150-400) X10^3/uL Neut % (Auto) 60.2 (50-75) % Lymph % (Auto) 31.2 (25-40) % [place] % (Auto) 5.6 (3-14) % Eos % (Auto) 2.0 (2-4) % Baso % (Auto) 1.0 (0-2) % Neut # (Auto) 4300 (3981-6061) /uL Sodium 143 (137-145) mmol/L Potassium 4.5 (3.4-5.1) mmol/L Chloride 107 (98-107) mmol/L Carbon Dioxide 24 (22-32) mmol/L BUN 18 H (7-17) mg/dL Creatinine 0.60 (0.52-1.04) mg/dL Estimated GFR > 60.0 (>60) mL/min BUN/Creatinine Ratio 30.0 H (6-22) Glucose 102 H (70-100) mg/dL Calcium 9.4 (8.4-10.2) mg/dL Total Bilirubin 0.4 (0.2-1.3) mg/dL AST 29 (14-36) IU/L ALT 38 (9-52) IU/L Alkaline Phosphatase 96 (38-126) U/L Total Protein 7.7 (6.3-8.2) g/dL Albumin 4.6 (3.5-5.0) g/dL Globulin 3.1 (1.7-4.1) g/dL Albumin/Globulin Ratio 1.5 (1.0-2.8) Lipase 111 (23-300) U/L Urine RBC None seen (0-5/HPF) Urine WBC 10-30/hpf H (0-5/HPF) Ur Squamous Epith Cells 0-1 /hpf Urine Bacteria Many (>30) H (None) Ur Culture Indicated? Specimen cultured Micro UA Comment Not Reportable Discharge Plan Departure Patient Disposition: Home, Self-Care Clinical Impression: Abdominal pain Discharge Date/Time: 12/29/17 17:51 Interventions: ED Discharge Assessment Last Done: 12/29/17 17:50 Instructions: DI for Abdominal Pain-Adult Activity Restrictions/Additional Instructions: Urinalysis indicates urinary tract infection. Otherwise Laboratory results today were unremarkable. CT of the abdomen was obtained was negative for any acute findings. Chest x-ray was obtained was also negative for any acute findings. Signs and symptoms presents as abdominal wall pain. For the urinary tract infection Macrobid has been prescribed use as directed. Use over-the- counter Tylenol Motrin as needed for any discomfort. Follow up with her primary care provider. Return emergency room for any worsening symptoms. Prescriptions: New nitrofurantoin monohyd/m-cryst [Macrobid] 100 mg capsule 100 mg PO Q12H Qty: 14 RF: 0 No Action gabapentin 100 MG capsule 100 mg PO HS Qty: 0 RF: 0 levetiracetam [Keppra] 250 MG tablet 750 mg PO BID Qty: 0 RF: 0 albuterol sulfate [Proventil HFA] 90 MCG/PUFF HFA aerosol inhaler 1 puff INH Q4-6H PRN (Reason: Wheezing) Qty: 0 RF: 0 multivitamin [Multiple Vitamins] 1 EACH tablet 1 tab PO QDAY Qty: 0 RF: 0 ibuprofen 200 MG tablet 200 mg PO QID PRN (Reason: Pain (Scale Score 1-3)) Qty: 0 RF: 0 calcium carbonate 500 MG tablet 1 tab PO QDAY Qty: 0 RF: 0 omega 5-znl-ddk-fish oil [Fish Oil] 1,000 MG capsule 1,000 mg PO QDAY Qty: 0 RF: 0 ascorbic acid (vitamin C) 500 MG tablet 2 tab PO QDAY Qty: 0 RF: 0 vitamin B complex [B Complex-Vitamin B12] 1 EACH tablet 1 tab PO QDAY Qty: 0 RF: 0 alprazolam 0.25 mg Tablet 0.25 mg PO TID RF: 0 hydrocodone-acetaminophen 7.5-325 mg tablet 1 tab PO TID PRN (Reason: Pain, Moderate) RF: 0 Referrals: Rachell Alves MD [Primary Care Provider] - <Cedrick Vaughn DO - Last Filed: 01/04/18 18:22> Cosign ED Attending Abi Attestation: I was available for consultation during this patient's emergency department encounter
--- NOTE | 2017-12-29 15:09 | DI.RAD.S_ITS ---
PROCEDURE: XR CHEST 2V INDICATIONS: left rib pain, no injury TECHNIQUE: 2 views of the chest were acquired. COMPARISON: [facility], , CHEST 1 VIEW, 09/07/2017, 12:30. [facility], , XR CHEST 2V, 10/24/2017, 12:59. FINDINGS: Surgical changes and devices: Cholecystectomy clips are seen. Lungs and pleura: On this semiupright portable chest examination, no large pneumothorax or large pleural effusions are seen. No focal infiltrates are seen. Mediastinum: Mediastinal contours are normal. Heart size is normal. Bones and chest wall: No suspicious bony abnormalities. Age-appropriate bony degenerative changes are seen. Soft tissues appear unremarkable. IMPRESSION: No acute cardiopulmonary process is seen. Postoperative and degenerative changes are seen. Dictated by: Иван Perry M.D. on 12/29/2017 at 14:39 Approved by: Иван Perry M.D. on 12/29/2017 at 14:40
--- NOTE | 2017-12-29 15:27 | DI.CT.S_ITS ---
PROCEDURE: CT ABDOMEN PELVIS W CON INDICATIONS: Left lateral abdominal pain TECHNIQUE: After the administration of intravenous contrast, 5 mm thick sections acquired from the diaphragm to the symphysis. 5 mm coronal and sagittal reformats were acquired. For radiation dose reduction, the following was used: automated exposure control, adjustment of mA and/or kV according to patient size. COMPARISON: None. FINDINGS: Image quality: Excellent. ABDOMEN: Lung bases: Lung bases are clear. Heart size is normal. Solid organs: Liver is normal in size and enhancement. Gallbladder appears previously resected. Biliary system is non dilated. Pancreas enhances normally. Spleen is normal in size and enhancement. No adrenal nodules. Kidneys demonstrate normal size and enhancement, without hydronephrosis. Peritoneum and bowel: Bowel loops demonstrate normal wall thickness and caliber. No free fluid or air. Nodes and vessels: No retroperitoneal or mesenteric adenopathy by size criteria. Aorta and inferior vena cava are normal in size. Miscellaneous: No ventral hernias. PELVIS: Genitourinary: Bladder wall thickness is normal. Miscellaneous: No inguinal hernias or adenopathy. Bones: No suspicious bony lesions. No vertebral body compression fractures. IMPRESSION: Prior cholecystectomy. No sign of intestinal infection obstruction or perforation. A source of asymmetric left-sided abdominal pain is not found. Dictated by: Michael Deluca M.D. on 12/29/2017 at 16:52 Approved by: Michael Deluca M.D. on 12/29/2017 at 16:54
[2017-12-29] MEDS: HYDROMORPHONE 1 MG INJ 0.5 MG IV (15:55)
[2017-12-29] MEDS: SODIUM CHLORIDE 0.9% 1,000 ML 1000 ML IV (15:55)
[2017-12-29] MEDS: ONDANSETRON 4 MG/2 ML INJ IV (15:55)
[2017-12-29 15:56] VITALS: BP 134/97; PULSE 81; RESP 20; O2SAT 97
[2017-12-29 16:08] LABS: Add Manual Diff / Slide Review NO; Hematocrit 39.7 % (36-46); Hemoglobin 13.8 g/dL (12.0-16.0); Lymphocytes Percent Auto 31.2 % (25-40); Mean Corpuscular HGB Conc 34.8 % (30-36); Mean Corpuscular Hemoglobin 33.8 PG (26-34); Monocytes Percent Auto 5.6 % (3-14); Neutrophils Absolute Auto 4300 /uL (3000-5900); Neutrophils Percent Auto 60.2 % (50-75); Platelet Count 240 X10^3/uL (150-400); Red Cell Distribution Width 13.6 % (11.6-14.8); White Blood Cell Count 7.1 X10^3/uL (4.5-11.0)
[2017-12-29 16:12] LABS: RBC Urine None Seen (0-5/HPF)
[2017-12-29 16:17] LABS: Alanine Aminotransferase 38 IU/L (9-52); Albumin 4.6 g/dL (3.5-5.0); Albumin Globulin Ratio 1.5 (1.0-2.8); Alkaline Phosphatase 96 U/L (38-126); Aspartate Aminotransferase 29 IU/L (14-36); Bilirubin Total 0.4 mg/dL (0.2-1.3); Blood Urea Nitrogen 18 mg/dL (7-17); Calcium 9.4 mg/dL (8.4-10.2); Carbon Dioxide 24 mmol/L (22-32); Chloride 107 mmol/L (98-107); Estimated Glomerular Filt Rate > 60.0 mL/min (>60); Globulin 3.1 g/dL (1.7-4.1); Glucose 102 mg/dL (70-100); HEMOLYSIS < 15 (0-50); Lipase 111 U/L (23-300); Potassium 4.5 mmol/L (3.4-5.1); Sodium 143 mmol/L (137-145); Total Protein 7.7 g/dL (6.3-8.2)
[2017-12-29 16:20] LABS: Squamous Epithelial Cell Urine 0-1 /HPF; WBC Urine 10-30/HPF (0-5/HPF)
[2017-12-29 16:21] LABS: Bacteria Urine Many (>30); Culture Indicated Urine Specimen Cultured
[2017-12-29 17:50] VITALS: BP 127/83; PULSE 78; RESP 16; O2SAT 98
== END 2017-12-29 17:51 | disposition home or self-care (01) ==
PROVIDERS: Emergency Provider Nurse Practitioner Family; PCP Internal Medicine
DX: R10.9 Unspecified abdominal pain (principal)
CPT/HCPCS: 36415; 71046; 74177; 80053; 81003; 81015; 83690; 85025; 87077; 87086; 87186; 96361; 96374; 96375; 99283; 99285; J1170; J2405; Q9967

== ENCOUNTER 2018-03-28 20:59 | Emergency (ER) | payer OTHER, MEDICAID, SELFPAY ==
[2018-03-28 21:01] VITALS: BP 157/89; PULSE 90; RESP 18; O2SAT 98; BMI 28.1
[2018-03-28 21:25] VITALS: BP 152/80; PULSE 97; RESP 20; O2SAT 98
--- NOTE | 2018-03-28 22:34 | DI.CT.S_ITS ---
PROCEDURE: CT ABDOMEN PELVIS W CON INDICATIONS: gi bleed, mid lower abdominal pain TECHNIQUE: After the administration of intravenous contrast, 5 mm thick sections acquired from the diaphragm to the symphysis. 5 mm coronal and sagittal reformats were acquired. For radiation dose reduction, the following was used: automated exposure control, adjustment of mA and/or kV according to patient size. COMPARISON: [facility], CT, CT ABDOMEN PELVIS W CON, 12/29/2017, 16:17. FINDINGS: Image quality: Excellent. ABDOMEN: Lung bases: Lung bases are clear. Heart size is normal. Solid organs: Mild hepatic steatosis.. Gallbladder surgically absent. Biliary system is mildly prominent which is often seen in the postcholecystectomy setting.. Pancreas enhances normally. Spleen is normal in size and enhancement. No adrenal nodules. Kidneys demonstrate normal size and enhancement, without hydronephrosis. Peritoneum and bowel: There is questionable intermittent colonic wall thickening although this could be due to collapse state for example in the hepatic flexure image 43 series 2. No free fluid or air. The appendix is not clearly identified however no suspicious pericecal inflammatory changes are identified Rectum is grossly unremarkable Nodes and vessels: No retroperitoneal or mesenteric adenopathy by size criteria. Aorta and inferior vena cava are normal in size. Miscellaneous: No ventral hernias. PELVIS: Genitourinary: Bladder wall thickness is normal. Miscellaneous: No inguinal hernias or adenopathy. Multiple chronic appearing bilateral rib fractures with callus formation IMPRESSION: Questionable scattered mild colonic wall thickening raising the possibility of low-grade colitis however this is technically indeterminate and not well evaluated due to largely collapsed state. Recommend close clinical correlation. Elsewhere, no acute abnormality identified. Status post cholecystectomy Dictated by: Alfonso Alegre M.D. on 03/29/2018 at 8:34 Approved by: Alfonso Alegre M.D. on 03/29/2018 at 8:47
[2018-03-28 22:36] LABS: Add Manual Diff / Slide Review NO; Eosinophils Percent Auto 3.4 % (2-4); Hematocrit 35.4 % (36-46); Hemoglobin 12.2 g/dL (12.0-16.0); Lymphocytes Percent Auto 36.2 % (25-40); Mean Corpuscular HGB Conc 34.5 % (30-36); Mean Corpuscular Hemoglobin 33.7 PG (26-34); Mean Corpuscular Volume 97.6 fL (80-100); Monocytes Percent Auto 5.6 % (3-14); Neutrophils Absolute Auto 3600 /uL (3000-5900); Neutrophils Percent Auto 53.8 % (50-75); Platelet Count 236 X10^3/uL (150-400); Red Blood Cell Count 3.63 X10^6/uL (4.0-5.2); Red Cell Distribution Width 13.2 % (11.6-14.8); White Blood Cell Count 6.6 X10^3/uL (4.5-11.0)
--- NOTE | 2018-03-28 22:36 | ED.GIBLEED ---
HPI - GI Bleed General Chief complaint: GI Bleed Stated complaint: gi bleed Time Seen by Provider: 03/28/18 22:14 Source: patient Mode of arrival: ambulatory Limitations: no limitations History of Present Illness HPI Narrative: The patient is a 57-year-old female who presents with gross blood per rectum. She has been having some weird abdominal discomfort throughout the day. She now has increased lower abdominal pain. She does frequently have a bowel movement after she eats this has been ongoing since her cholecystectomy. Today she noticed bright red blood in the toilet and on the toilet paper. It was a nonpainful bowel movement. She says unlike hemorrhoid pain or bleeding. She does have a history of 2 colon polyps which she said were removed at some point. She is not on any anti-platelet or anticoagulation medication. She does feel little dizzy and lightheaded but no syncopal episodes. She denies any nausea or vomiting or fever. Onset (ago): hour(s) Severity: mild Relieving factors: none Related Data Home Medications Medication Instructions Recorded Confirmed gabapentin 100 mg PO HS #0 05/25/17 03/29/18 albuterol sulfate [Proventil HFA] 1 puff INH Q4-6H PRN #0 09/07/17 03/29/18 ascorbic acid (vitamin C) 2 tab PO QDAY #0 09/07/17 03/29/18 calcium carbonate 1 tab PO QDAY #0 09/07/17 03/29/18 ibuprofen 200 mg PO QID PRN #0 09/07/17 03/29/18 multivitamin [Multiple Vitamins] 1 tab PO QDAY #0 09/07/17 03/29/18 omega 9-has-vxz-fish oil [Fish Oil] 1,000 mg PO QDAY #0 09/07/17 03/29/18 vitamin B complex [B 1 tab PO QDAY #0 09/07/17 03/29/18 Complex-Vitamin B12] alprazolam 0.25 mg PO TID 10/29/17 03/29/18 hydrocodone-acetaminophen 1 tab PO TID PRN 12/29/17 03/29/18 Allergies Allergy/AdvReac Type Severity Reaction Status Date / Time cheese [CHEESE] Allergy Unknown Verified 03/28/18 21:06 codeine [CODEINE] Allergy Unknown Verified 03/28/18 21:06 Sulfa (Sulfonamide Allergy Unknown Verified 03/28/18 21:06 Antibiotics) [SULFA (SULFONAMIDE ANTIBIOTICS)] Penicillins AdvReac Mild Irritable Verified 03/28/18 21:07 DARK CHOCOLATE Allergy Unknown Uncoded 03/28/18 21:06 Review of Systems Review of Systems All systems reviewed & are unremarkable except as noted in HPI and below Constitutional Denies chills, Denies fever(s), Denies headache(s), Denies lethargy and Denies weakness Eyes Denies change in vision, Denies eye discharge, Denies irritation and Denies loss of vision ENT Ears, Nose, Mouth, and Throat: Denies headache(s) Cardiovascular Denies chest pain, Denies syncope, Denies irregular heart rhythm, Denies lightheadedness, Denies palpitations and Denies orthopnea Musculoskeletal Denies back pain, Denies muscle weakness, Denies numbness and Denies tingling Integumentary/Breasts Denies pruritus, Denies erythema, Denies rash and Denies wounds Neurologic Denies syncope, Denies headache(s), Denies loss of vision, Denies numbness, Denies seizure-like activity, Denies tingling and Denies weakness Endocrine Denies palpitations [facility] Medical History Anxiety (Chronic) Rheumatoid arthritis (Chronic) 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 HEENT: Head atraumatic,EOMI, pupils reactive, face symmetric, moist mucous membranes CARDIOVASCULAR: Regular rate and rhythm without murmurs, rubs or gallops. RESPIRATORY: Breath sounds equal bilaterally, no wheezes rales or rhonchi. ABDOMEN: Soft, tender suprapubically no guarding or rebound no localized left or right-sided pain RECTAL: Hemoccult-positive, no hemorrhoids, nontender : No CVA tenderness EXTREMITIES: Normal range of motion, no clubbing or edema. Neurovascularly intact NEUROLOGICAL: Alert and oriented x4.Normal gait and speech. Cranial nerves II through XII grossly intact. SKIN: Warm, dry, no laceration, no petechiae, no rashes or lesions. Course Orders Ordered: ED Orders 03/28/18 21:23 EKG-12 Lead Stat 03/28/18 22:05 Complete Blood Count AUTO DIFF Stat Comprehensive Metabolic Panel Stat Lipase Stat Partial Thromboplastin Time Stat Prothrombin Time INR Stat 03/28/18 22:34 CT abdomen pelvis w con Stat 03/29/18 02:15 Hemoglobin and Hematocrit Stat Discontinued Medications Hydromorphone HCl (Dilaudid) 0.5 mg IV NOW ONE Stop: 03/29/18 03:37 Last Admin: 03/29/18 03:37 Dose: 0.5 mg Morphine Sulfate (Morphine) 2 mg IV NOW ONE Stop: 03/28/18 22:35 Last Admin: 03/28/18 23:37 Dose: 2 mg Morphine Sulfate (Morphine) 2 mg IV NOW ONE Stop: 03/29/18 01:00 Last Admin: 03/29/18 01:03 Dose: 2 mg Pantoprazole Sodium (Protonix) 40 mg IV NOW ONE Stop: 03/28/18 22:35 Last Admin: 03/28/18 23:37 Dose: 40 mg Vital Signs - 8 hr 03/29/18 01:26 03/29/18 03:23 03/29/18 04:43 Temperature 97.2 F L Pulse Rate 84 87 76 Respiratory Rate 18 18 16 Blood Pressure 141/86 H Blood Pressure [Right Arm] 130/83 151/79 H Pulse Oximetry 97 98 98 MDM - GI Bleed Lab Data Attestation: I reviewed the patient's lab results. Result diagrams: 03/29/18 02:15 03/28/18 22:05 Lab Results 03/28/18 03/28/18 03/28/18 Range/Units 22:05 22:05 22:05 WBC 6.6 (4.5-11.0) X10^3/uL RBC 3.63 L (4.0-5.2) X10^6/uL Hgb 12.2 (12.0-16.0) g/dL Hct 35.4 L (36-46) % MCV 97.6 (80-100) fL MCH 33.7 (26-34) PG MCHC 34.5 (30-36) % RDW 13.2 (11.6-14.8) % Plt Count 236 (150-400) X10^3/uL Neut % (Auto) 53.8 (50-75) % Lymph % (Auto) 36.2 (25-40) % [place] % (Auto) 5.6 (3-14) % Eos % (Auto) 3.4 (2-4) % Baso % (Auto) 1.0 (0-2) % Neut # (Auto) 3600 (0759-4571) /uL PT 9.5 L (10.1-12.7) SECONDS INR 0.9 (0.9-1.3) APTT 30 (26.4-36.2) SECONDS Sodium 142 (137-145) mmol/L Potassium 3.8 (3.4-5.1) mmol/L Chloride 110 H (98-107) mmol/L Carbon Dioxide 22 (22-32) mmol/L BUN 19 H (7-17) mg/dL Creatinine 0.60 (0.52-1.04) mg/dL Estimated GFR > 60.0 (>60) mL/min BUN/Creatinine Ratio 31.7 H (6-22) Glucose 106 H (70-100) mg/dL Calcium 8.7 (8.4-10.2) mg/dL Total Bilirubin 0.2 (0.2-1.3) mg/dL AST 28 (14-36) IU/L ALT 38 (9-52) IU/L Alkaline Phosphatase 79 (38-126) U/L Total Protein 6.8 (6.3-8.2) g/dL Albumin 4.0 (3.5-5.0) g/dL Globulin 2.8 (1.7-4.1) g/dL Albumin/Globulin Ratio 1.4 (1.0-2.8) Lipase 199 (23-300) U/L 03/29/18 Range/Units 02:15 WBC (4.5-11.0) X10^3/uL RBC (4.0-5.2) X10^6/uL Hgb 12.6 (12.0-16.0) g/dL Hct 37.1 (36-46) % MCV (80-100) fL MCH (26-34) PG MCHC (30-36) % RDW (11.6-14.8) % Plt Count (150-400) X10^3/uL Neut % (Auto) (50-75) % Lymph % (Auto) (25-40) % [place] % (Auto) (3-14) % Eos % (Auto) (2-4) % Baso % (Auto) (0-2) % Neut # (Auto) (3104-4904) /uL PT (10.1-12.7) SECONDS INR (0.9-1.3) APTT (26.4-36.2) SECONDS Sodium (137-145) mmol/L Potassium (3.4-5.1) mmol/L Chloride (98-107) mmol/L Carbon Dioxide (22-32) mmol/L BUN (7-17) mg/dL Creatinine (0.52-1.04) mg/dL Estimated GFR (>60) mL/min BUN/Creatinine Ratio (6-22) Glucose (70-100) mg/dL Calcium (8.4-10.2) mg/dL Total Bilirubin (0.2-1.3) mg/dL AST (14-36) IU/L ALT (9-52) IU/L Alkaline Phosphatase (38-126) U/L Total Protein (6.3-8.2) g/dL Albumin (3.5-5.0) g/dL Globulin (1.7-4.1) g/dL Albumin/Globulin Ratio (1.0-2.8) Lipase (23-300) U/L Imaging Data CT scan - abdomen: 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 States status post cholecystectomy with mildly prominent CBD proximally, nonspecific likely biliary ectasia MDM Narrative Medical decision making narrative: Patient states she has had 4-5 bloody bowel movements in the ED. She remained hemodynamically stable nausea vomiting. Repeat H&H [facility] no longer has beds looking for places to transfer. She continues to have rectal bleeding in the ED but remains stable. Repeat H&H stable Dr. Avilez at [place] is happily accepts patient. Discharge Plan Departure Patient Disposition: [facility] Clinical Impression: Acute GI bleeding Interventions: ED Discharge Assessment Last Done: 03/29/18 04:43 Prescriptions: No Action gabapentin 100 MG capsule 100 mg PO HS Qty: 0 RF: 0 albuterol sulfate [Proventil HFA] 90 MCG/PUFF HFA aerosol inhaler 1 puff INH Q4-6H PRN (Reason: Wheezing) Qty: 0 RF: 0 multivitamin [Multiple Vitamins] 1 EACH tablet 1 tab PO QDAY Qty: 0 RF: 0 ibuprofen 200 MG tablet 200 mg PO QID PRN (Reason: Pain (Scale Score 1-3)) Qty: 0 RF: 0 calcium carbonate 500 MG tablet 1 tab PO QDAY Qty: 0 RF: 0 omega 3-zej-ctt-fish oil [Fish Oil] 1,000 MG capsule 1,000 mg PO QDAY Qty: 0 RF: 0 ascorbic acid (vitamin C) 500 MG tablet 2 tab PO QDAY Qty: 0 RF: 0 vitamin B complex [B Complex-Vitamin B12] 1 EACH tablet 1 tab PO QDAY Qty: 0 RF: 0 alprazolam 0.25 mg Tablet 0.25 mg PO TID RF: 0 hydrocodone-acetaminophen 7.5-325 mg tablet 1 tab PO TID PRN (Reason: Pain, Moderate) RF: 0
[2018-03-28 22:41] LABS: INR 0.9 (0.9-1.3); Prothrombin Time 9.5 SECONDS (10.1-12.7)
--- NOTE | 2018-03-28 22:41 | ED_ITS ---
HPI - GI Bleed General Chief complaint: GI Bleed Stated complaint: gi bleed Time Seen by Provider: 03/28/18 22:14 Source: patient Mode of arrival: ambulatory Limitations: no limitations History of Present Illness HPI Narrative: The patient is a 57-year-old female who presents with gross blood per rectum. She has been having some weird abdominal discomfort throughout the day. She now has increased lower abdominal pain. She does frequently have a bowel movement after she eats this has been ongoing since her cholecystectomy. Today she noticed bright red blood in the toilet and on the toilet paper. It was a nonpainful bowel movement. She says unlike hemorrhoid pain or bleeding. She does have a history of 2 colon polyps which she said were removed at some point. She is not on any anti-platelet or anticoagulation medication. She does feel little dizzy and lightheaded but no syncopal episodes. She denies any nausea or vomiting or fever. Onset (ago): hour(s) Severity: mild Relieving factors: none Related Data Home Medications Medication Instructions Recorded Confirmed gabapentin 100 mg PO HS #0 05/25/17 03/29/18 albuterol sulfate [Proventil HFA] 1 puff INH Q4-6H PRN #0 09/07/17 03/29/18 ascorbic acid (vitamin C) 2 tab PO QDAY #0 09/07/17 03/29/18 calcium carbonate 1 tab PO QDAY #0 09/07/17 03/29/18 ibuprofen 200 mg PO QID PRN #0 09/07/17 03/29/18 multivitamin [Multiple Vitamins] 1 tab PO QDAY #0 09/07/17 03/29/18 omega 5-sje-jnf-fish oil [Fish Oil] 1,000 mg PO QDAY #0 09/07/17 03/29/18 vitamin B complex [B 1 tab PO QDAY #0 09/07/17 03/29/18 Complex-Vitamin B12] alprazolam 0.25 mg PO TID 10/29/17 03/29/18 hydrocodone-acetaminophen 1 tab PO TID PRN 12/29/17 03/29/18 Allergies Allergy/AdvReac Type Severity Reaction Status Date / Time cheese [CHEESE] Allergy Unknown Verified 03/28/18 21:06 codeine [CODEINE] Allergy Unknown Verified 03/28/18 21:06 Sulfa (Sulfonamide Allergy Unknown Verified 03/28/18 21:06 Antibiotics) [SULFA (SULFONAMIDE ANTIBIOTICS)] Penicillins AdvReac Mild Irritable Verified 03/28/18 21:07 DARK CHOCOLATE Allergy Unknown Uncoded 03/28/18 21:06 Review of Systems Review of Systems All systems reviewed & are unremarkable except as noted in HPI and below Constitutional Denies chills, Denies fever(s), Denies headache(s), Denies lethargy and Denies weakness Eyes Denies change in vision, Denies eye discharge, Denies irritation and Denies loss of vision ENT Ears, Nose, Mouth, and Throat: Denies headache(s) Cardiovascular Denies chest pain, Denies syncope, Denies irregular heart rhythm, Denies lightheadedness, Denies palpitations and Denies orthopnea Musculoskeletal Denies back pain, Denies muscle weakness, Denies numbness and Denies tingling Integumentary/Breasts Denies pruritus, Denies erythema, Denies rash and Denies wounds Neurologic Denies syncope, Denies headache(s), Denies loss of vision, Denies numbness, Denies seizure-like activity, Denies tingling and Denies weakness Endocrine Denies palpitations [facility] Medical History Anxiety (Chronic) Rheumatoid arthritis (Chronic) 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 HEENT: Head atraumatic,EOMI, pupils reactive, face symmetric, moist mucous membranes CARDIOVASCULAR: Regular rate and rhythm without murmurs, rubs or gallops. RESPIRATORY: Breath sounds equal bilaterally, no wheezes rales or rhonchi. ABDOMEN: Soft, tender suprapubically no guarding or rebound no localized left or right-sided pain RECTAL: Hemoccult-positive, no hemorrhoids, nontender : No CVA tenderness EXTREMITIES: Normal range of motion, no clubbing or edema. Neurovascularly intact NEUROLOGICAL: Alert and oriented x4.Normal gait and speech. Cranial nerves II through XII grossly intact. SKIN: Warm, dry, no laceration, no petechiae, no rashes or lesions. Course Orders Ordered: ED Orders 03/28/18 21:23 EKG-12 Lead Stat 03/28/18 22:05 Complete Blood Count AUTO DIFF Stat Comprehensive Metabolic Panel Stat Lipase Stat Partial Thromboplastin Time Stat Prothrombin Time INR Stat 03/28/18 22:34 CT abdomen pelvis w con Stat 03/29/18 02:15 Hemoglobin and Hematocrit Stat Discontinued Medications Hydromorphone HCl (Dilaudid) 0.5 mg IV NOW ONE Stop: 03/29/18 03:37 Last Admin: 03/29/18 03:37 Dose: 0.5 mg Morphine Sulfate (Morphine) 2 mg IV NOW ONE Stop: 03/28/18 22:35 Last Admin: 03/28/18 23:37 Dose: 2 mg Morphine Sulfate (Morphine) 2 mg IV NOW ONE Stop: 03/29/18 01:00 Last Admin: 03/29/18 01:03 Dose: 2 mg Pantoprazole Sodium (Protonix) 40 mg IV NOW ONE Stop: 03/28/18 22:35 Last Admin: 03/28/18 23:37 Dose: 40 mg Vital Signs - 8 hr 03/29/18 01:26 03/29/18 03:23 03/29/18 04:43 Temperature 97.2 F L Pulse Rate 84 87 76 Respiratory Rate 18 18 16 Blood Pressure 141/86 H Blood Pressure [Right Arm] 130/83 151/79 H Pulse Oximetry 97 98 98 MDM - GI Bleed Lab Data Attestation: I reviewed the patient's lab results. Result diagrams: 03/29/18 02:15 03/28/18 22:05 Lab Results 03/28/18 03/28/18 03/28/18 Range/Units 22:05 22:05 22:05 WBC 6.6 (4.5-11.0) X10^3/uL RBC 3.63 L (4.0-5.2) X10^6/uL Hgb 12.2 (12.0-16.0) g/dL Hct 35.4 L (36-46) % MCV 97.6 (80-100) fL MCH 33.7 (26-34) PG MCHC 34.5 (30-36) % RDW 13.2 (11.6-14.8) % Plt Count 236 (150-400) X10^3/uL Neut % (Auto) 53.8 (50-75) % Lymph % (Auto) 36.2 (25-40) % [place] % (Auto) 5.6 (3-14) % Eos % (Auto) 3.4 (2-4) % Baso % (Auto) 1.0 (0-2) % Neut # (Auto) 3600 (0403-2748) /uL PT 9.5 L (10.1-12.7) SECONDS INR 0.9 (0.9-1.3) APTT 30 (26.4-36.2) SECONDS Sodium 142 (137-145) mmol/L Potassium 3.8 (3.4-5.1) mmol/L Chloride 110 H (98-107) mmol/L Carbon Dioxide 22 (22-32) mmol/L BUN 19 H (7-17) mg/dL Creatinine 0.60 (0.52-1.04) mg/dL Estimated GFR > 60.0 (>60) mL/min BUN/Creatinine Ratio 31.7 H (6-22) Glucose 106 H (70-100) mg/dL Calcium 8.7 (8.4-10.2) mg/dL Total Bilirubin 0.2 (0.2-1.3) mg/dL AST 28 (14-36) IU/L ALT 38 (9-52) IU/L Alkaline Phosphatase 79 (38-126) U/L Total Protein 6.8 (6.3-8.2) g/dL Albumin 4.0 (3.5-5.0) g/dL Globulin 2.8 (1.7-4.1) g/dL Albumin/Globulin Ratio 1.4 (1.0-2.8) Lipase 199 (23-300) U/L 03/29/18 Range/Units 02:15 WBC (4.5-11.0) X10^3/uL RBC (4.0-5.2) X10^6/uL Hgb 12.6 (12.0-16.0) g/dL Hct 37.1 (36-46) % MCV (80-100) fL MCH (26-34) PG MCHC (30-36) % RDW (11.6-14.8) % Plt Count (150-400) X10^3/uL Neut % (Auto) (50-75) % Lymph % (Auto) (25-40) % [place] % (Auto) (3-14) % Eos % (Auto) (2-4) % Baso % (Auto) (0-2) % Neut # (Auto) (4746-0723) /uL PT (10.1-12.7) SECONDS INR (0.9-1.3) APTT (26.4-36.2) SECONDS Sodium (137-145) mmol/L Potassium (3.4-5.1) mmol/L Chloride (98-107) mmol/L Carbon Dioxide (22-32) mmol/L BUN (7-17) mg/dL Creatinine (0.52-1.04) mg/dL Estimated GFR (>60) mL/min BUN/Creatinine Ratio (6-22) Glucose (70-100) mg/dL Calcium (8.4-10.2) mg/dL Total Bilirubin (0.2-1.3) mg/dL AST (14-36) IU/L ALT (9-52) IU/L Alkaline Phosphatase (38-126) U/L Total Protein (6.3-8.2) g/dL Albumin (3.5-5.0) g/dL Globulin (1.7-4.1) g/dL Albumin/Globulin Ratio (1.0-2.8) Lipase (23-300) U/L Imaging Data CT scan - abdomen: 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 States status post cholecystectomy with mildly prominent CBD proximally, nonspecific likely biliary ectasia MDM Narrative Medical decision making narrative: Patient states she has had 4-5 bloody bowel movements in the ED. She remained hemodynamically stable nausea vomiting. Repeat H&H [facility] no longer has beds looking for places to transfer. She continues to have rectal bleeding in the ED but remains stable. Repeat H&H stable Dr. Avilez at [place] is happily accepts patient. Discharge Plan Departure [facility] Clinical Impression: Acute GI bleeding Interventions: ED Discharge Assessment Last Done: 03/29/18 04:43 Prescriptions: No Action gabapentin 100 MG capsule 100 mg PO HS Qty: 0 RF: 0 albuterol sulfate [Proventil HFA] 90 MCG/PUFF HFA aerosol inhaler 1 puff INH Q4-6H PRN (Reason: Wheezing) Qty: 0 RF: 0 multivitamin [Multiple Vitamins] 1 EACH tablet 1 tab PO QDAY Qty: 0 RF: 0 ibuprofen 200 MG tablet 200 mg PO QID PRN (Reason: Pain (Scale Score 1-3)) Qty: 0 RF: 0 calcium carbonate 500 MG tablet 1 tab PO QDAY Qty: 0 RF: 0 omega 5-uxi-phk-fish oil [Fish Oil] 1,000 MG capsule 1,000 mg PO QDAY Qty: 0 RF: 0 ascorbic acid (vitamin C) 500 MG tablet 2 tab PO QDAY Qty: 0 RF: 0 vitamin B complex [B Complex-Vitamin B12] 1 EACH tablet 1 tab PO QDAY Qty: 0 RF: 0 alprazolam 0.25 mg Tablet 0.25 mg PO TID RF: 0 hydrocodone-acetaminophen 7.5-325 mg tablet 1 tab PO TID PRN (Reason: Pain, Moderate) RF: 0
[2018-03-28 22:44] LABS: PTT Partial Thromboplastin Tim 30 SECONDS (26.4-36.2)
[2018-03-28 22:45] LABS: Alanine Aminotransferase 38 IU/L (9-52); Albumin Globulin Ratio 1.4 (1.0-2.8); Alkaline Phosphatase 79 U/L (38-126); Aspartate Aminotransferase 28 IU/L (14-36); BUN Creatinine Ratio 31.7 (6-22); Bilirubin Total 0.2 mg/dL (0.2-1.3); Blood Urea Nitrogen 19 mg/dL (7-17); Calcium 8.7 mg/dL (8.4-10.2); Carbon Dioxide 22 mmol/L (22-32); Chloride 110 mmol/L (98-107); Estimated Glomerular Filt Rate > 60.0 mL/min (>60); Globulin 2.8 g/dL (1.7-4.1); Glucose 106 mg/dL (70-100); HEMOLYSIS < 15 (0-50); Lipase 199 U/L (23-300); Potassium 3.8 mmol/L (3.4-5.1); Sodium 142 mmol/L (137-145); Total Protein 6.8 g/dL (6.3-8.2)
[2018-03-28] MEDS: PANTOPRAZOLE 40 MG VIAL IV (23:37)
[2018-03-28] MEDS: MORPHINE 2 MG/ML INJ IV (23:37)
[2018-03-29] MEDS: MORPHINE 2 MG/ML INJ IV (01:03)
[2018-03-29 01:26] VITALS: BP 130/83; PULSE 84; RESP 18; TEMP 36.2; O2SAT 97
--- NOTE | 2018-03-29 01:27 | PC.NURSE ---
Pt eating ice chips so temp was a little low
[2018-03-29 02:30] LABS: Hematocrit 37.1 % (36-46); Hemoglobin 12.6 g/dL (12.0-16.0)
[2018-03-29 03:23] VITALS: BP 151/79; PULSE 87; RESP 18; O2SAT 98
[2018-03-29] MEDS: HYDROMORPHONE 1 MG INJ 0.5 MG IV (03:37)
[2018-03-29 04:43] VITALS: BP 141/86; PULSE 76; RESP 16; O2SAT 98
== END 2018-03-29 04:45 | disposition short-term general hospital (02) ==
PROVIDERS: Emergency Provider Emergency Medicine; PCP Internal Medicine
DX: K92.2 Gastrointestinal hemorrhage, unspecified (principal)
CPT/HCPCS: 36415; 74177; 80053; 83690; 85014; 85018; 85025; 85610; 85730; 93005; 96374; 96375; 96376; 99283; 99285; C9113; J1170; J2270; Q9967

== ENCOUNTER 2018-06-24 18:46 | Emergency (ER) | payer OTHER, MEDICAID, SELFPAY ==
[2018-06-24 18:56] VITALS: BP 146/91; PULSE 101; RESP 20; TEMP 37; O2SAT 94; BMI 29.5
--- NOTE | 2018-06-24 20:04 | ED.HA ---
HPI - Headache <MARTIN Vazquez - Last Filed: 06/24/18 22:33> General Chief Complaint: Headache Stated Complaint: MIGRAINE Time Seen by Provider: 06/24/18 19:06 Source: patient Mode of arrival: ambulatory Limitations: no limitations History of Present Illness HPI Narrative: 58-year-old female with history of migraine headaches that everyday smoker here for complaint of headache that started earlier today. She states that she has not had a migraine headache and approximately a year. She states that she feels that this headache is worse than her normal migraine headaches. She states she has some nausea and vomiting. She also states that she has photophobia. She did have an aura prior to the headache starting early this morning. Decreased p.o. intake today due to the nausea vomiting. No fevers no chills. She denies any head trauma. She denies any other concerns or complaints this time. No triggers or relievers of her discomfort or symptoms. Related Data Home Medications Medication Instructions Recorded Confirmed gabapentin 100 mg PO HS #0 05/25/17 03/29/18 albuterol sulfate [Proventil HFA] 1 puff INH Q4-6H PRN #0 09/07/17 03/29/18 ascorbic acid (vitamin C) 2 tab PO QDAY #0 09/07/17 03/29/18 calcium carbonate 1 tab PO QDAY #0 09/07/17 03/29/18 ibuprofen 200 mg PO QID PRN #0 09/07/17 03/29/18 multivitamin [Multiple Vitamins] 1 tab PO QDAY #0 09/07/17 03/29/18 omega 5-zaz-gxv-fish oil [Fish Oil] 1,000 mg PO QDAY #0 09/07/17 03/29/18 vitamin B complex [B 1 tab PO QDAY #0 09/07/17 03/29/18 Complex-Vitamin B12] alprazolam 0.25 mg PO TID 10/29/17 03/29/18 hydrocodone-acetaminophen 1 tab PO TID PRN 12/29/17 03/29/18 Allergies Allergy/AdvReac Type Severity Reaction Status Date / Time prochlorperazine Allergy Severe Hallucinati Verified 06/24/18 20:29 [From Compazine] ng cheese [CHEESE] Allergy Unknown Verified 03/28/18 21:06 codeine [CODEINE] Allergy Unknown Verified 03/28/18 21:06 Sulfa (Sulfonamide Allergy Unknown Verified 03/28/18 21:06 Antibiotics) [SULFA (SULFONAMIDE ANTIBIOTICS)] Penicillins AdvReac Mild Irritable Verified 03/28/18 21:07 DARK CHOCOLATE Allergy Unknown Uncoded 03/28/18 21:06 Review of Systems <MARTIN Vazquez - Last Filed: 06/24/18 22:33> Constitutional Denies chills, Denies fever(s), Denies lethargy and Denies weakness Eyes Denies change in vision, Denies eye discharge, Denies irritation and Denies loss of vision ENT Ears, Nose, Mouth, and Throat: Denies change in voice, Denies neck pain and Denies sore throat Cardiovascular Denies chest pain, Denies irregular heart rhythm, Denies lightheadedness, Denies palpitations, Denies dyspnea, Denies dyspnea on exertion and Denies orthopnea Respiratory Denies cough, Denies dyspnea, Denies dyspnea on exertion and Denies wheezing Gastrointestinal Gastrointestinal: Denies abdominal pain, Denies change in bowel habits, Denies diarrhea, Denies nausea and Denies vomiting Genitourinary Denies hematuria, Denies flank pain, Denies urinary incontinence and Denies urinary urgency Musculoskeletal Denies neck pain Integumentary/Breasts Denies pruritus, Denies erythema, Denies rash and Denies wounds Neurologic Denies confusion, Denies loss of vision and Denies weakness Psychiatric Denies anxiety, Denies confusion, Denies depression, Denies homicidal ideation and Denies suicidal ideation Endocrine Denies palpitations Hematologic/Lymphatic Denies easy bruising Allergic/Immunologic Denies wheezing Exam <MARTIN Vazquez - Last Filed: 06/24/18 22:33> Initial Vital Signs Initial Vital Signs: Vital Signs Temperature 98.6 F 06/24/18 18:56 Pulse Rate 101 H 06/24/18 18:56 Respiratory Rate 20 06/24/18 18:56 Blood Pressure 146/91 H 06/24/18 18:56 Pulse Oximetry 94 06/24/18 18:56 Const General: cooperative and well developed Nutritional Appearance: well nourished Orientation: alert, awake, oriented x3 and not confused HENMT Mouth: oral mucosae normal and mucous membranes abnormal Eyes Conjunctivae: conjunctivae normal Sclera: sclerae normal Pupils: PERRL EOM: EOM intact bilaterally Resp Effort & Inspection: normal respiratory effort, able to speak in complete sentences, no respiratory distress and no use of accessory muscles Auscultation: clear to auscultation bilaterally, no rales, no rhonchi and no wheezes Cardio Rate: regular rate Rhythm: regular rhythm Heart Sounds: no click, no gallops, no murmurs and no rubs Pulses: normal peripheral pulses Skin General: no rashes or lesions noted, No jaundice and No petechiae Neuro General: alert, oriented x3, gait normal and no focal motor deficits Speech: speech normal <An Sin DO - Last Filed: 06/24/18 23:38> Initial Vital Signs Initial Vital Signs: Vital Signs Temperature 98.6 F 06/24/18 18:56 Pulse Rate 101 H 06/24/18 18:56 Respiratory Rate 20 06/24/18 18:56 Blood Pressure 146/91 H 06/24/18 18:56 Pulse Oximetry 94 06/24/18 18:56 Course <MARTIN Vazquez - Last Filed: 06/24/18 22:33> Orders Ordered: ED Orders 06/24/18 20:10 CT head/brain wo con Stat Discontinued Medications Diphenhydramine HCl (Benadryl) 25 mg IV NOW ONE Stop: 06/24/18 20:11 Last Admin: 06/24/18 20:34 Dose: 25 mg Hydromorphone HCl (Dilaudid) 0.5 mg IV NOW ONE Stop: 06/24/18 21:35 Last Admin: 06/24/18 21:49 Dose: 0.5 mg Sodium Chloride (Normal Saline 0.9%) 1,000 mls @ 1,000 mls/hr IV BOLUS ONE Stop: 06/24/18 21:09 Last Infusion: 06/24/18 21:53 Dose: 0 mls/hr Admin: 06/24/18 20:33 Dose: 1,000 mls/hr Ketorolac Tromethamine (Toradol) 30 mg IV NOW ONE Stop: 06/24/18 20:11 Last Admin: 06/24/18 20:33 Dose: 30 mg Metoclopramide HCl (Reglan) 10 mg IV NOW ONE Stop: 06/24/18 20:11 Last Admin: 06/24/18 20:34 Dose: 10 mg Vital Signs - 8 hr 06/24/18 18:56 06/24/18 22:14 Temperature 98.6 F Pulse Rate 101 H 72 Respiratory Rate 20 Blood Pressure 146/91 H 111/64 Pulse Oximetry 94 97 <An Sin DO - Last Filed: 06/24/18 23:38> Orders Ordered: ED Orders 06/24/18 20:10 CT head/brain wo con Stat Discontinued Medications Diphenhydramine HCl (Benadryl) 25 mg IV NOW ONE Stop: 06/24/18 20:11 Last Admin: 06/24/18 20:34 Dose: 25 mg Hydromorphone HCl (Dilaudid) 0.5 mg IV NOW ONE Stop: 06/24/18 21:35 Last Admin: 06/24/18 21:49 Dose: 0.5 mg Sodium Chloride (Normal Saline 0.9%) 1,000 mls @ 1,000 mls/hr IV BOLUS ONE Stop: 06/24/18 21:09 Last Infusion: 06/24/18 21:53 Dose: 0 mls/hr Admin: 06/24/18 20:33 Dose: 1,000 mls/hr Ketorolac Tromethamine (Toradol) 30 mg IV NOW ONE Stop: 06/24/18 20:11 Last Admin: 06/24/18 20:33 Dose: 30 mg Metoclopramide HCl (Reglan) 10 mg IV NOW ONE Stop: 06/24/18 20:11 Last Admin: 06/24/18 20:34 Dose: 10 mg Vital Signs - 8 hr 06/24/18 18:56 06/24/18 22:14 Temperature 98.6 F Pulse Rate 101 H 72 Respiratory Rate 20 Blood Pressure 146/91 H 111/64 Pulse Oximetry 94 97 MDM - Headache <MARTIN Vazquez - Last Filed: 06/24/18 22:33> Imaging Data CT scan - head: Radiologist's impression: [address] [address] [address] Scan Report Signed Patient: Megan Bower LMR#: [id number] : 1960Acct:[id number] Age/Sex: 58 / FDate of Service: 06/24/18 Loc: ED Accession Number: [id number] Procedure: CT head/brain wo con Ordering Provider: Tonny Martinez PROCEDURE: CT HEAD/BRAIN WO CON INDICATIONS: Migraine headache worsen than normal TECHNIQUE: Noncontrast 4.5 mm thick angled axial sections acquired from the foramen magnum to the vertex, with coronal and sagittal reformats. For radiation dose reduction, the following was used: automated exposure control, adjustment of mA and/or kV according to patient size. COMPARISON: [facility], CT, HEAD WITHOUT CONTRAST, 09/07/2015, 14:45. FINDINGS: Image quality: Excellent. CSF spaces: Basal cisterns are patent. No extra-axial fluid collections. Ventricles are normal in size and shape. Brain: No midline shift. No intracranial masses or hemorrhage. Hatch-white matter interface is normal. Skull and face: Calvarium and visualized facial bones are intact, without suspicious lesions. Sinuses: Visualized sinuses and mastoids are clear. IMPRESSION: 1. No acute intracranial abnormalities. Dictated by: Renee Boyd M.D. on 06/24/2018 at 20:44 Approved by: Renee Boyd M.D. on 06/24/2018 at 20:47 MDM Narrative Medical decision making narrative: CT scan of the head was obtained was negative for any acute findings. She was given fluids along with Reglan Toradol and Benadryl. This helped her nausea and reduced her headache slightly. Signs and symptoms presents as a migraine headache. She did request further medications to treat her headache. Discussed with the risk versus reward of narcotics for migraine headache. Patient states his states that she understood. She is given a small amount of Dilaudid to help her headache further. She is instructed follow up with primary care provider later this week. Plenty of fluids and rest. Home to quiet environment. For any worsening symptoms return emergency room. Discharge Plan Departure Patient Disposition: Home Clinical Impression: Headache, migraine Discharge Date/Time: 06/24/18 22:16 Interventions: ED Discharge Assessment Last Done: 06/24/18 22:14 Instructions: Migraine -- Adult Activity Restrictions/Additional Instructions: CT of the head was obtained was unremarkable. Laboratory results were unremarkable. You were given fluids and medication emergency room to reduce her headache. Follow up with primary care provider next few days for re-evaluation. Plenty of fluids. Rest and quiet environment. For any worsening symptoms return emergency room for Prescriptions: No Action gabapentin 100 MG capsule 100 mg PO HS Qty: 0 RF: 0 albuterol sulfate [Proventil HFA] 90 MCG/PUFF HFA aerosol inhaler 1 puff INH Q4-6H PRN (Reason: Wheezing) Qty: 0 RF: 0 multivitamin [Multiple Vitamins] 1 EACH tablet 1 tab PO QDAY Qty: 0 RF: 0 ibuprofen 200 MG tablet 200 mg PO QID PRN (Reason: Pain (Scale Score 1-3)) Qty: 0 RF: 0 calcium carbonate 500 MG tablet 1 tab PO QDAY Qty: 0 RF: 0 omega 0-nsg-gah-fish oil [Fish Oil] 1,000 MG capsule 1,000 mg PO QDAY Qty: 0 RF: 0 ascorbic acid (vitamin C) 500 MG tablet 2 tab PO QDAY Qty: 0 RF: 0 vitamin B complex [B Complex-Vitamin B12] 1 EACH tablet 1 tab PO QDAY Qty: 0 RF: 0 alprazolam 0.25 mg Tablet 0.25 mg PO TID RF: 0 hydrocodone-acetaminophen 7.5-325 mg tablet 1 tab PO TID PRN (Reason: Pain, Moderate) RF: 0 Referrals: Rachell Alves MD [Primary Care Provider] - <An Sin DO - Last Filed: 06/24/18 23:38> Cosign ED Attending Cosignature Attestation: I was immediately available in the department for consultation. This documentation has been reviewed and I agree with assessment and plan. Supervised by An Sin DO
--- NOTE | 2018-06-24 20:10 | DI.CT.S_ITS ---
PROCEDURE: CT HEAD/BRAIN WO CON INDICATIONS: Migraine headache worsen than normal TECHNIQUE: Noncontrast 4.5 mm thick angled axial sections acquired from the foramen magnum to the vertex, with coronal and sagittal reformats. For radiation dose reduction, the following was used: automated exposure control, adjustment of mA and/or kV according to patient size. COMPARISON: [facility], CT, HEAD WITHOUT CONTRAST, 09/07/2015, 14:45. FINDINGS: Image quality: Excellent. CSF spaces: Basal cisterns are patent. No extra-axial fluid collections. Ventricles are normal in size and shape. Brain: No midline shift. No intracranial masses or hemorrhage. Hatch-white matter interface is normal. Skull and face: Calvarium and visualized facial bones are intact, without suspicious lesions. Sinuses: Visualized sinuses and mastoids are clear. IMPRESSION: 1. No acute intracranial abnormalities. Dictated by: Renee Boyd M.D. on 06/24/2018 at 20:44 Approved by: Renee Boyd M.D. on 06/24/2018 at 20:47
[2018-06-24] MEDS: SODIUM CHLORIDE 0.9% 1,000 ML 1000 ML IV (20:33)
[2018-06-24] MEDS: KETOROLAC 60 MG/2 ML VIAL 30 MG IV (20:33)
[2018-06-24] MEDS: METOCLOPRAMIDE 10 MG/2 ML INJ IV (20:34)
[2018-06-24] MEDS: diphenhydrAMINE 50 MG/ML VIAL 25 MG IV (20:34)
--- NOTE | 2018-06-24 21:31 | ED_ITS ---
HPI - Headache <MARTIN Vazquez - Last Filed: 06/24/18 22:33> General Chief Complaint: Headache Stated Complaint: MIGRAINE Time Seen by Provider: 06/24/18 19:06 Source: patient Mode of arrival: ambulatory Limitations: no limitations History of Present Illness HPI Narrative: 58-year-old female with history of migraine headaches that everyday smoker here for complaint of headache that started earlier today. She states that she has not had a migraine headache and approximately a year. She states that she feels that this headache is worse than her normal migraine headaches. She states she has some nausea and vomiting. She also states that she has photophobia. She did have an aura prior to the headache starting early this morning. Decreased p.o. intake today due to the nausea vomiting. No fevers no chills. She denies any head trauma. She denies any other concerns or complaints this time. No triggers or relievers of her discomfort or symptoms. Related Data Home Medications Medication Instructions Recorded Confirmed gabapentin 100 mg PO HS #0 05/25/17 03/29/18 albuterol sulfate [Proventil HFA] 1 puff INH Q4-6H PRN #0 09/07/17 03/29/18 ascorbic acid (vitamin C) 2 tab PO QDAY #0 09/07/17 03/29/18 calcium carbonate 1 tab PO QDAY #0 09/07/17 03/29/18 ibuprofen 200 mg PO QID PRN #0 09/07/17 03/29/18 multivitamin [Multiple Vitamins] 1 tab PO QDAY #0 09/07/17 03/29/18 omega 9-gaa-vjq-fish oil [Fish Oil] 1,000 mg PO QDAY #0 09/07/17 03/29/18 vitamin B complex [B 1 tab PO QDAY #0 09/07/17 03/29/18 Complex-Vitamin B12] alprazolam 0.25 mg PO TID 10/29/17 03/29/18 hydrocodone-acetaminophen 1 tab PO TID PRN 12/29/17 03/29/18 Allergies Allergy/AdvReac Type Severity Reaction Status Date / Time prochlorperazine Allergy Severe Hallucinati Verified 06/24/18 20:29 [From Compazine] ng cheese [CHEESE] Allergy Unknown Verified 03/28/18 21:06 codeine [CODEINE] Allergy Unknown Verified 03/28/18 21:06 Sulfa (Sulfonamide Allergy Unknown Verified 03/28/18 21:06 Antibiotics) [SULFA (SULFONAMIDE ANTIBIOTICS)] Penicillins AdvReac Mild Irritable Verified 03/28/18 21:07 DARK CHOCOLATE Allergy Unknown Uncoded 03/28/18 21:06 Review of Systems <MARTIN Vazquez - Last Filed: 06/24/18 22:33> Constitutional Denies chills, Denies fever(s), Denies lethargy and Denies weakness Eyes Denies change in vision, Denies eye discharge, Denies irritation and Denies loss of vision ENT Ears, Nose, Mouth, and Throat: Denies change in voice, Denies neck pain and Denies sore throat Cardiovascular Denies chest pain, Denies irregular heart rhythm, Denies lightheadedness, Denies palpitations, Denies dyspnea, Denies dyspnea on exertion and Denies orthopnea Respiratory Denies cough, Denies dyspnea, Denies dyspnea on exertion and Denies wheezing Gastrointestinal Gastrointestinal: Denies abdominal pain, Denies change in bowel habits, Denies diarrhea, Denies nausea and Denies vomiting Genitourinary Denies hematuria, Denies flank pain, Denies urinary incontinence and Denies urinary urgency Musculoskeletal Denies neck pain Integumentary/Breasts Denies pruritus, Denies erythema, Denies rash and Denies wounds Neurologic Denies confusion, Denies loss of vision and Denies weakness Psychiatric Denies anxiety, Denies confusion, Denies depression, Denies homicidal ideation and Denies suicidal ideation Endocrine Denies palpitations Hematologic/Lymphatic Denies easy bruising Allergic/Immunologic Denies wheezing Exam <MARTIN Vazquez - Last Filed: 06/24/18 22:33> Initial Vital Signs Initial Vital Signs: Vital Signs Temperature 98.6 F 06/24/18 18:56 Pulse Rate 101 H 06/24/18 18:56 Respiratory Rate 20 06/24/18 18:56 Blood Pressure 146/91 H 06/24/18 18:56 Pulse Oximetry 94 06/24/18 18:56 Const General: cooperative and well developed Nutritional Appearance: well nourished Orientation: alert, awake, oriented x3 and not confused HENMT Mouth: oral mucosae normal and mucous membranes abnormal Eyes Conjunctivae: conjunctivae normal Sclera: sclerae normal Pupils: PERRL EOM: EOM intact bilaterally Resp Effort & Inspection: normal respiratory effort, able to speak in complete sentences, no respiratory distress and no use of accessory muscles Auscultation: clear to auscultation bilaterally, no rales, no rhonchi and no wheezes Cardio Rate: regular rate Rhythm: regular rhythm Heart Sounds: no click, no gallops, no murmurs and no rubs Pulses: normal peripheral pulses Skin General: no rashes or lesions noted, No jaundice and No petechiae Neuro General: alert, oriented x3, gait normal and no focal motor deficits Speech: speech normal <An Sin DO - Last Filed: 06/24/18 23:38> Initial Vital Signs Initial Vital Signs: Vital Signs Temperature 98.6 F 06/24/18 18:56 Pulse Rate 101 H 06/24/18 18:56 Respiratory Rate 20 06/24/18 18:56 Blood Pressure 146/91 H 06/24/18 18:56 Pulse Oximetry 94 06/24/18 18:56 Course <MARTIN Vazquez - Last Filed: 06/24/18 22:33> Orders Ordered: ED Orders 06/24/18 20:10 CT head/brain wo con Stat Discontinued Medications Diphenhydramine HCl (Benadryl) 25 mg IV NOW ONE Stop: 06/24/18 20:11 Last Admin: 06/24/18 20:34 Dose: 25 mg Hydromorphone HCl (Dilaudid) 0.5 mg IV NOW ONE Stop: 06/24/18 21:35 Last Admin: 06/24/18 21:49 Dose: 0.5 mg Sodium Chloride (Normal Saline 0.9%) 1,000 mls @ 1,000 mls/hr IV BOLUS ONE Stop: 06/24/18 21:09 Last Infusion: 06/24/18 21:53 Dose: 0 mls/hr Admin: 06/24/18 20:33 Dose: 1,000 mls/hr Ketorolac Tromethamine (Toradol) 30 mg IV NOW ONE Stop: 06/24/18 20:11 Last Admin: 06/24/18 20:33 Dose: 30 mg Metoclopramide HCl (Reglan) 10 mg IV NOW ONE Stop: 06/24/18 20:11 Last Admin: 06/24/18 20:34 Dose: 10 mg Vital Signs - 8 hr 06/24/18 18:56 06/24/18 22:14 Temperature 98.6 F Pulse Rate 101 H 72 Respiratory Rate 20 Blood Pressure 146/91 H 111/64 Pulse Oximetry 94 97 <An Sin DO - Last Filed: 06/24/18 23:38> Orders Ordered: ED Orders 06/24/18 20:10 CT head/brain wo con Stat Discontinued Medications Diphenhydramine HCl (Benadryl) 25 mg IV NOW ONE Stop: 06/24/18 20:11 Last Admin: 06/24/18 20:34 Dose: 25 mg Hydromorphone HCl (Dilaudid) 0.5 mg IV NOW ONE Stop: 06/24/18 21:35 Last Admin: 06/24/18 21:49 Dose: 0.5 mg Sodium Chloride (Normal Saline 0.9%) 1,000 mls @ 1,000 mls/hr IV BOLUS ONE Stop: 06/24/18 21:09 Last Infusion: 06/24/18 21:53 Dose: 0 mls/hr Admin: 06/24/18 20:33 Dose: 1,000 mls/hr Ketorolac Tromethamine (Toradol) 30 mg IV NOW ONE Stop: 06/24/18 20:11 Last Admin: 06/24/18 20:33 Dose: 30 mg Metoclopramide HCl (Reglan) 10 mg IV NOW ONE Stop: 06/24/18 20:11 Last Admin: 06/24/18 20:34 Dose: 10 mg Vital Signs - 8 hr 06/24/18 18:56 06/24/18 22:14 Temperature 98.6 F Pulse Rate 101 H 72 Respiratory Rate 20 Blood Pressure 146/91 H 111/64 Pulse Oximetry 94 97 MDM - Headache <MARTIN Vazquez - Last Filed: 06/24/18 22:33> Imaging Data CT scan - head: Radiologist's impression: [address] [address] [address] Scan Report Signed Patient: Megan Bower LMR#: [id number] : 1960Acct:[id number] Age/Sex: 58 / FDate of Service: 06/24/18 Loc: ED Accession Number: [id number] Procedure: CT head/brain wo con Ordering Provider: Tonny Martinez PROCEDURE: CT HEAD/BRAIN WO CON INDICATIONS: Migraine headache worsen than normal TECHNIQUE: Noncontrast 4.5 mm thick angled axial sections acquired from the foramen magnum to the vertex, with coronal and sagittal reformats. For radiation dose reduction, the following was used: automated exposure control, adjustment of mA and/or kV according to patient size. COMPARISON: [facility], CT, HEAD WITHOUT CONTRAST, 09/07/2015, 14:45. FINDINGS: Image quality: Excellent. CSF spaces: Basal cisterns are patent. No extra-axial fluid collections. Ventricles are normal in size and shape. Brain: No midline shift. No intracranial masses or hemorrhage. Hatch-white matter interface is normal. Skull and face: Calvarium and visualized facial bones are intact, without suspicious lesions. Sinuses: Visualized sinuses and mastoids are clear. IMPRESSION: 1. No acute intracranial abnormalities. Dictated by: Renee Boyd M.D. on 06/24/2018 at 20:44 Approved by: Renee Boyd M.D. on 06/24/2018 at 20:47 MDM Narrative Medical decision making narrative: CT scan of the head was obtained was negative for any acute findings. She was given fluids along with Reglan Toradol and Benadryl. This helped her nausea and reduced her headache slightly. Signs and symptoms presents as a migraine headache. She did request further medications to treat her headache. Discussed with the risk versus reward of narcotics for migraine headache. Patient states his states that she understood. She is given a small amount of Dilaudid to help her headache further. She is instructed follow up with primary care provider later this week. Plenty of fluids and rest. Home to quiet environment. For any worsening symptoms return emergency room. Discharge Plan Departure Patient Disposition: Home Clinical Impression: Headache, migraine Discharge Date/Time: 06/24/18 22:16 Interventions: ED Discharge Assessment Last Done: 06/24/18 22:14 Instructions: Migraine -- Adult Activity Restrictions/Additional Instructions: CT of the head was obtained was unremarkable. Laboratory results were unremarkable. You were given fluids and medication emergency room to reduce her headache. Follow up with primary care provider next few days for re- evaluation. Plenty of fluids. Rest and quiet environment. For any worsening symptoms return emergency room for Prescriptions: No Action gabapentin 100 MG capsule 100 mg PO HS Qty: 0 RF: 0 albuterol sulfate [Proventil HFA] 90 MCG/PUFF HFA aerosol inhaler 1 puff INH Q4-6H PRN (Reason: Wheezing) Qty: 0 RF: 0 multivitamin [Multiple Vitamins] 1 EACH tablet 1 tab PO QDAY Qty: 0 RF: 0 ibuprofen 200 MG tablet 200 mg PO QID PRN (Reason: Pain (Scale Score 1-3)) Qty: 0 RF: 0 calcium carbonate 500 MG tablet 1 tab PO QDAY Qty: 0 RF: 0 omega 2-hig-yke-fish oil [Fish Oil] 1,000 MG capsule 1,000 mg PO QDAY Qty: 0 RF: 0 ascorbic acid (vitamin C) 500 MG tablet 2 tab PO QDAY Qty: 0 RF: 0 vitamin B complex [B Complex-Vitamin B12] 1 EACH tablet 1 tab PO QDAY Qty: 0 RF: 0 alprazolam 0.25 mg Tablet 0.25 mg PO TID RF: 0 hydrocodone-acetaminophen 7.5-325 mg tablet 1 tab PO TID PRN (Reason: Pain, Moderate) RF: 0 Referrals: Rachell Alves MD [Primary Care Provider] - <An Sin DO - Last Filed: 06/24/18 23:38> Cosign ED Attending Cosignature Attestation: I was immediately available in the department for consultation. This documentation has been reviewed and I agree with assessment and plan. Supervised by An Sin DO
[2018-06-24] MEDS: HYDROMORPHONE 1 MG INJ 0.5 MG IV (21:49)
[2018-06-24 22:14] VITALS: BP 111/64; PULSE 72; O2SAT 97
== END 2018-06-24 22:16 | disposition home or self-care (01) ==
PROVIDERS: Emergency Provider Nurse Practitioner Family; PCP Internal Medicine
DX: G43.909 Migraine, unspecified, not intractable, without status migrainosus (principal)
CPT/HCPCS: 70450; 96361; 96374; 96375; 99283; 99284; J1170; J1200; J1885; J2765

== ENCOUNTER 2018-09-30 11:45 | Emergency (ER) | payer OTHER, MEDICAID, SELFPAY ==
[2018-09-30 11:54] VITALS: BP 146/98; PULSE 97; RESP 16; TEMP 37.1; O2SAT 98
--- NOTE | 2018-09-30 12:33 | ED.LOWEXIN ---
HPI - Extremity Injury (Lower) <An Sebastian, [employer] - Last Filed: 09/30/18 16:43> General Chief Complaint: Extremity Injury, Lower Stated Complaint: states her knees went out on her Time Seen by Provider: 09/30/18 12:19 Source: patient Mode of arrival: ambulatory Limitations: no limitations History of Present Illness HPI Narrative: The patient is a 50-year-old female smoker with history of alcohol intoxication who presents with a chief complaint of bilateral knee pain, left worse than right. She states that she has a history of her patellas dislocating, especially on her right side. She states it happened yesterday on her left side, which is never happened before. She states she has pain in the back of her left knee especially and that her left foot feels like pins and needles. She states that her patella has been dislocating on her right side for years, but she has never followed up with anybody about it. She has not applied ice. She took ibuprofen x1. She states that after this happened yesterday, she was able to walk around [employer] without issue. She denies any fevers nausea vomiting or diarrhea. She states she did have hydrocodone from her wrist surgery on her right wrist, but she is out of her hydrocodone. She states that ibuprofen x 1 has not helped her pain so she came into the emergency department. She states that she has not refilled her gabapentin prescription, and has not taken any gabapentin for the past 3 days. She states she has a refill waiting for her at the pharmacy. Related Data Home Medications Medication Instructions Recorded Confirmed gabapentin 100 mg PO BEDTIME #0 05/25/17 09/30/18 albuterol sulfate [Proventil HFA] 1 puff INH Q4-6H PRN #0 09/07/17 09/30/18 ascorbic acid (vitamin C) 2 tab PO DAILY #0 09/07/17 09/30/18 calcium carbonate 1 tab PO DAILY #0 09/07/17 09/30/18 ibuprofen 200 mg PO QID PRN #0 09/07/17 09/30/18 multivitamin [Multiple Vitamins] 1 tab PO QDAY #0 09/07/17 09/30/18 omega 5-wbb-pzj-fish oil [Fish Oil] 1,000 mg PO DAILY #0 09/07/17 09/30/18 vitamin B complex [B 1 tab PO DAILY #0 09/07/17 09/30/18 Complex-Vitamin B12] alprazolam 0.25 mg PO TID PRN 10/29/17 09/30/18 hydrocodone-acetaminophen 1 tab PO QID 12/29/17 09/30/18 simvastatin 20 mg PO QPM 09/30/18 09/30/18 Previous Rx's Medication Instructions Recorded hydrocodone-acetaminophen [[place]] 1 tab PO Q4-6H PRN #7 tab 09/30/18 lidocaine 1 patch TOP DAILY #15 each 09/30/18 Allergies Allergy/AdvReac Type Severity Reaction Status Date / Time prochlorperazine Allergy Severe Hallucinati Verified 06/24/18 20:29 [From Compazine] ng cheese [CHEESE] Allergy Unknown Verified 03/28/18 21:06 codeine [CODEINE] Allergy Unknown Verified 03/28/18 21:06 Sulfa (Sulfonamide Allergy Unknown Verified 03/28/18 21:06 Antibiotics) [SULFA (SULFONAMIDE ANTIBIOTICS)] Penicillins AdvReac Mild Irritable Verified 03/28/18 21:07 DARK CHOCOLATE Allergy Unknown Uncoded 03/28/18 21:06 Review of Systems <DANILO Haas - Last Filed: 09/30/18 16:43> Review of Systems GENERAL: Denies chills, fatigue, malaise, fever, sweats. HEENT: Denies sinus pain, ear pain, sore throat, difficulty swallowing, dizziness. RESPIRATORY: Denies dyspnea, cough, wheezing, hemoptysis, sputum. CARDIOVASCULAR: Denies chest pain, palpitations, orthopnea, edema, GASTROINTESTINAL: Denies nausea, vomiting, abdominal pain, diarrhea, constipation, melena. : Denies dysuria, frequency, incontinence, hematuria, urinary retention. MUSCULOSKELETAL: See HPI SKIN: Denies rash, skin lesions, or other NEUROLOGIC: Denies weakness, headache, numbness, change in speech, confusion, seizures, incoordination. PSYCHIATRIC: No concerning psychosocial issues. 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 Normocephalic. No temporal or scalp tenderness. EYES: Pupils equal round and reactive. Extraocular motions intact. No scleral icterus. No injection or drainage. ENT: Nose without bleeding, purulent drainage or septal hematoma. Throat without erythema, tonsillar hypertrophy or exudate. Uvula midline. Airway patent. NECK: Trachea midline. No JVD or lymphadenopathy. Supple, nontender, no meningeal signs. CARDIOVASCULAR: Regular rate and rhythm without murmurs, gallops, or rubs. RESPIRATORY: Clear to auscultation. Breath sounds equal bilaterally. No wheezes, rales, or rhonchi. No cough. No increased respiratory effort. GASTROINTESTINAL: Abdomen soft, non-tender, nondistended. No hepato-splenomegaly, or palpable masses. No guarding. active bowel sounds EXTREMITIES: A general pain to palpation bilateral knees. The patient is able to lift both knees off of the stretcher. Positive pedal pulses bilateral feet. Able to flex and extend the bilateral feet. Bilateral feet are warm. BACK: Nontender without deformity or crepitance. No flank tenderness. NEURO: AOx3. SKIN: No rash or erythema. No erythema, ecchymosis or laceration abrasion of bilateral knees. Initial Vital Signs Initial Vital Signs: Vital Signs Temperature 98.8 F 09/30/18 11:54 Pulse Rate 97 H 09/30/18 11:54 Respiratory Rate 16 09/30/18 11:54 Blood Pressure 146/98 H 09/30/18 11:54 Pulse Oximetry 98 09/30/18 11:54 <DO Brianna Marshall Last Filed: 09/30/18 19:05> Initial Vital Signs Initial Vital Signs: Vital Signs Temperature 98.8 F 09/30/18 11:54 Pulse Rate 97 H 09/30/18 11:54 Respiratory Rate 16 09/30/18 11:54 Blood Pressure 146/98 H 09/30/18 11:54 Pulse Oximetry 98 09/30/18 11:54 Procedures <DANILO Haas - Last Filed: 09/30/18 16:43> Orthopedic Splinting/Casting Injury #1: Side: left Lower Extremity Injury Location: knee Lower Extremity Immobilizer: knee immobilizer Other Orthopedic Equipment: cane Post splinting neuro exam: intact Post splinting vascular exam: intact Placed by: Nursing Course <DANILO Haas - Last Filed: 09/30/18 16:43> Orders Ordered: ED Orders 09/30/18 12:32 XR knee LT 3V Stat XR knee RT 3V Stat Discontinued Medications Hydrocodone Bitart/Acetaminophen ([place] 5/325) 2 tab PO NOW ONE Stop: 09/30/18 12:31 Last Admin: 09/30/18 12:52 Dose: 2 tab Gabapentin (Neurontin) 300 mg PO NOW ONE Stop: 09/30/18 13:59 Last Admin: 09/30/18 14:24 Dose: 300 mg Ketorolac Tromethamine (Toradol) 60 mg IM NOW ONE Stop: 09/30/18 12:31 Last Admin: 09/30/18 13:05 Dose: 60 mg Lidocaine (Lidoderm) 1 each TOP NOW ONE Stop: 09/30/18 13:59 Last Admin: 09/30/18 14:24 Dose: 1 each Vital Signs - 8 hr 09/30/18 11:54 09/30/18 15:24 Temperature 98.8 F Pulse Rate 97 H 71 Respiratory Rate 16 18 Blood Pressure 146/98 H Blood Pressure [Left Arm] 126/87 Pulse Oximetry 98 98 <DO Brianna Marshall Last Filed: 09/30/18 19:05> Orders Ordered: ED Orders 09/30/18 12:32 XR knee LT 3V Stat XR knee RT 3V Stat Discontinued Medications Hydrocodone Bitart/Acetaminophen ([place] 5/325) 2 tab PO NOW ONE Stop: 09/30/18 12:31 Last Admin: 09/30/18 12:52 Dose: 2 tab Gabapentin (Neurontin) 300 mg PO NOW ONE Stop: 09/30/18 13:59 Last Admin: 09/30/18 14:24 Dose: 300 mg Ketorolac Tromethamine (Toradol) 60 mg IM NOW ONE Stop: 09/30/18 12:31 Last Admin: 09/30/18 13:05 Dose: 60 mg Lidocaine (Lidoderm) 1 each TOP NOW ONE Stop: 09/30/18 13:59 Last Admin: 09/30/18 14:24 Dose: 1 each Vital Signs - 8 hr 09/30/18 11:54 09/30/18 15:24 Temperature 98.8 F Pulse Rate 97 H 71 Respiratory Rate 16 18 Blood Pressure 146/98 H Blood Pressure [Left Arm] 126/87 Pulse Oximetry 98 98 MDM - Extremity Injury (Lower) <DANILO Haas - Last Filed: 09/30/18 16:43> Imaging Data Left knee pain: Radiologist's impression: [place] [address] XRay Report Signed Patient: Megan Bower LMR#: [id number] : 1960Acct:[id number] Age/Sex: 58 / FDate of Service: 09/30/18 Loc: ED Accession Number: [id number] Procedure: XR knee LT 3V Ordering Provider: An Sebastian PROCEDURE: XR KNEE LT 3V INDICATIONS: knee pain, patient states dislocated patella TECHNIQUE: 3 views of the knee were acquired. COMPARISON: [facility], , KNEE 3V RIGHT, 05/25/2017, 19:57. FINDINGS: Bones: Mild to moderate tricomponent osteoarthritis in left knee is seen. No fractures or dislocations. No suspicious bony lesions. No patella subluxation is seen. Soft tissues: No joint effusion. No suspicious soft tissue calcifications. IMPRESSION: Eeof-sj-vpttqmco tricompartmental osteoarthritis. No fracture or dislocation. No patella subluxation. No significant joint effusion. Dictated by: Dagoberto Yanez M.D. on 09/30/2018 at 13:19 Approved by: Dagoberto Yanez M.D. on 09/30/2018 at 13:20 Right knee xray : Radiologist's impression: [address] [place] [address] XRay Report Signed Patient: Megan Bower LMR#: [id number] : 1960Acct:[id number] Age/Sex: 58 / FDate of Service: 09/30/18 Loc: ED Accession Number: [id number] Procedure: XR knee RT 3V Ordering Provider: An Sebastian PROCEDURE: XR KNEE RT 3V INDICATIONS: knee pain, patient states dislocated patella TECHNIQUE: 3 views of the knee were acquired. COMPARISON: [facility], , KNEE 3V RIGHT, 05/25/2017, 19:57. FINDINGS: Bones: Mlde-ur-dnrmehlc tricompartment osteoarthritis is seen, slightly progressed since previous study. No fractures or dislocations. No suspicious bony lesions. No patella subluxation. Soft tissues: Small joint effusion is seen.. No suspicious soft tissue calcifications. IMPRESSION: Worsening bdng-vc-sykxcfbv tricompartment osteoarthritis with small joint effusion. Dictated by: Dagoberto Yanez M.D. on 09/30/2018 at 13:16 Approved by: Dagoberto Yanez M.D. on 09/30/2018 at 13:19 [facility] Narrative Medical decision making narrative: Patient is a 58 year female presents with bilateral knee pain, left worse than right. She had x-rays that shows bilateral arthritis. She does complain of patellar subluxation bilaterally. This is not present on exam or x-ray. I discussed at length follow up with her primary care provider. She was placed in a left knee immobilizer. She was treated for pain with [place], gabapentin and a lidocaine patch was able to ambulate well after this. She of note has not been taking her scheduled gabapentin and ran out of her recent [place] from her wrist surgery. I discussed at length follow up with primary care provider gave her contact information for Orthopedics. Patient has no questions or concerns upon discharge. Discharge Plan Departure Patient Disposition: Home Clinical Impression: Bilateral knee pain Qualifiers: Chronicity: unspecified Qualified Code(s): M25.561 - Pain in right knee Discharge Date/Time: 09/30/18 15:36 Interventions: ED Discharge Assessment Last Done: 09/30/18 15:35 Instructions: DI for Knee Sprain, How To Perform RICE (Rest, Ice, Compress, Elevate), DI for Knee Pain, DI for Leg Pain Activity Restrictions/Additional Instructions: Please follow up with primary care provider. I have also given you contact information for [facility]. Please use rest ice compression elevation. Come back to emergency department for any acute concerns such as chest pain shortness of breath. I also suggest restarting the gabapentin as per your previous prescription. Prescriptions: New hydrocodone-acetaminophen [[place]] 5-325 mg tablet 1 tab PO Q4-6H PRN (Reason: pain) Qty: 7 RF: 0 lidocaine 5 % adhesive patch,medicated 1 patch TOP DAILY Qty: 15 RF: 0 No Action gabapentin 100 MG capsule 100 mg PO BEDTIME Qty: 0 RF: 0 albuterol sulfate [Proventil HFA] 90 MCG/PUFF HFA aerosol inhaler 1 puff INH Q4-6H PRN (Reason: Wheezing) Qty: 0 RF: 0 multivitamin [Multiple Vitamins] 1 EACH tablet 1 tab PO QDAY Qty: 0 RF: 0 ibuprofen 200 MG tablet 200 mg PO QID PRN (Reason: Pain (Scale Score 1-3)) Qty: 0 RF: 0 calcium carbonate 500 MG tablet 1 tab PO DAILY Qty: 0 RF: 0 omega 9-dwg-aqc-fish oil [Fish Oil] 1,000 MG capsule 1,000 mg PO DAILY Qty: 0 RF: 0 ascorbic acid (vitamin C) 500 MG tablet 2 tab PO DAILY Qty: 0 RF: 0 vitamin B complex [B Complex-Vitamin B12] 1 EACH tablet 1 tab PO DAILY Qty: 0 RF: 0 simvastatin 20 mg tablet 20 mg PO QPM RF: 0 alprazolam 0.25 mg Tablet 0.25 mg PO TID PRN (Reason: Anxiety) RF: 0 hydrocodone-acetaminophen 7.5-325 mg tablet 1 tab PO QID RF: 0 Referrals: [facility] [Provider Group] Rachell Alves MD [Primary Care Provider] - <An Sin DO - Last Filed: 09/30/18 19:05> Cosign ED Attending Cosignature Attestation: I was immediately available in the department for consultation. This documentation has been reviewed and I agree with assessment and plan. Supervised by An Sin, DO
--- NOTE | 2018-09-30 12:36 | ED_ITS ---
HPI - Extremity Injury (Lower) <An Sebastian, [employer] - Last Filed: 09/30/18 16:43> General Chief Complaint: Extremity Injury, Lower Stated Complaint: states her knees went out on her Time Seen by Provider: 09/30/18 12:19 Source: patient Mode of arrival: ambulatory Limitations: no limitations History of Present Illness HPI Narrative: The patient is a 50-year-old female smoker with history of alcohol intoxication who presents with a chief complaint of bilateral knee pain, left worse than right. She states that she has a history of her patellas dislocating, especially on her right side. She states it happened yesterday on her left side, which is never happened before. She states she has pain in the back of her left knee especially and that her left foot feels like pins and needles. She states that her patella has been dislocating on her right side for years, but she has never followed up with anybody about it. She has not applied ice. She took ibuprofen x1. She states that after this happened yesterday, she was able to walk around [employer] without issue. She denies any fevers nausea vomiting or diarrhea. She states she did have hydrocodone from her wrist surgery on her right wrist, but she is out of her hydrocodone. She states that ibuprofen x 1 has not helped her pain so she came into the emergency department. She states that she has not refilled her gabapentin prescription, and has not taken any gabapentin for the past 3 days. She states she has a refill waiting for her at the pharmacy. Related Data Home Medications Medication Instructions Recorded Confirmed gabapentin 100 mg PO BEDTIME #0 05/25/17 09/30/18 albuterol sulfate [Proventil HFA] 1 puff INH Q4-6H PRN #0 09/07/17 09/30/18 ascorbic acid (vitamin C) 2 tab PO DAILY #0 09/07/17 09/30/18 calcium carbonate 1 tab PO DAILY #0 09/07/17 09/30/18 ibuprofen 200 mg PO QID PRN #0 09/07/17 09/30/18 multivitamin [Multiple Vitamins] 1 tab PO QDAY #0 09/07/17 09/30/18 omega 4-lte-fyg-fish oil [Fish Oil] 1,000 mg PO DAILY #0 09/07/17 09/30/18 vitamin B complex [B 1 tab PO DAILY #0 09/07/17 09/30/18 Complex-Vitamin B12] alprazolam 0.25 mg PO TID PRN 10/29/17 09/30/18 hydrocodone-acetaminophen 1 tab PO QID 12/29/17 09/30/18 simvastatin 20 mg PO QPM 09/30/18 09/30/18 Previous Rx's Medication Instructions Recorded hydrocodone-acetaminophen [Steele] 1 tab PO Q4-6H PRN #7 tab 09/30/18 lidocaine 1 patch TOP DAILY #15 each 09/30/18 Allergies Allergy/AdvReac Type Severity Reaction Status Date / Time prochlorperazine Allergy Severe Hallucinati Verified 06/24/18 20:29 [From Compazine] ng cheese [CHEESE] Allergy Unknown Verified 03/28/18 21:06 codeine [CODEINE] Allergy Unknown Verified 03/28/18 21:06 Sulfa (Sulfonamide Allergy Unknown Verified 03/28/18 21:06 Antibiotics) [SULFA (SULFONAMIDE ANTIBIOTICS)] Penicillins AdvReac Mild Irritable Verified 03/28/18 21:07 DARK CHOCOLATE Allergy Unknown Uncoded 03/28/18 21:06 Review of Systems <DANILO Haas - Last Filed: 09/30/18 16:43> Review of Systems GENERAL: Denies chills, fatigue, malaise, fever, sweats. HEENT: Denies sinus pain, ear pain, sore throat, difficulty swallowing, dizziness. RESPIRATORY: Denies dyspnea, cough, wheezing, hemoptysis, sputum. CARDIOVASCULAR: Denies chest pain, palpitations, orthopnea, edema, GASTROINTESTINAL: Denies nausea, vomiting, abdominal pain, diarrhea, constipation, melena. : Denies dysuria, frequency, incontinence, hematuria, urinary retention. MUSCULOSKELETAL: See HPI SKIN: Denies rash, skin lesions, or other NEUROLOGIC: Denies weakness, headache, numbness, change in speech, confusion, seizures, incoordination. PSYCHIATRIC: No concerning psychosocial issues. 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 Normocephalic. No temporal or scalp tenderness. EYES: Pupils equal round and reactive. Extraocular motions intact. No scleral icterus. No injection or drainage. ENT: Nose without bleeding, purulent drainage or septal hematoma. Throat without erythema, tonsillar hypertrophy or exudate. Uvula midline. Airway patent. NECK: Trachea midline. No JVD or lymphadenopathy. Supple, nontender, no meningeal signs. CARDIOVASCULAR: Regular rate and rhythm without murmurs, gallops, or rubs. RESPIRATORY: Clear to auscultation. Breath sounds equal bilaterally. No wheezes, rales, or rhonchi. No cough. No increased respiratory effort. GASTROINTESTINAL: Abdomen soft, non-tender, nondistended. No hepato- splenomegaly, or palpable masses. No guarding. active bowel sounds EXTREMITIES: A general pain to palpation bilateral knees. The patient is able to lift both knees off of the stretcher. Positive pedal pulses bilateral feet. Able to flex and extend the bilateral feet. Bilateral feet are warm. BACK: Nontender without deformity or crepitance. No flank tenderness. NEURO: AOx3. SKIN: No rash or erythema. No erythema, ecchymosis or laceration abrasion of bilateral knees. Initial Vital Signs Initial Vital Signs: Vital Signs Temperature 98.8 F 09/30/18 11:54 Pulse Rate 97 H 09/30/18 11:54 Respiratory Rate 16 09/30/18 11:54 Blood Pressure 146/98 H 09/30/18 11:54 Pulse Oximetry 98 09/30/18 11:54 <DO Brianna Marshall Last Filed: 09/30/18 19:05> Initial Vital Signs Initial Vital Signs: Vital Signs Temperature 98.8 F 09/30/18 11:54 Pulse Rate 97 H 09/30/18 11:54 Respiratory Rate 16 09/30/18 11:54 Blood Pressure 146/98 H 09/30/18 11:54 Pulse Oximetry 98 09/30/18 11:54 Procedures <DANILO Haas - Last Filed: 09/30/18 16:43> Orthopedic Splinting/Casting Injury #1: Side: left Lower Extremity Injury Location: knee Lower Extremity Immobilizer: knee immobilizer Other Orthopedic Equipment: cane Post splinting neuro exam: intact Post splinting vascular exam: intact Placed by: Nursing Course <DANILO Haas - Last Filed: 09/30/18 16:43> Orders Ordered: ED Orders 09/30/18 12:32 XR knee LT 3V Stat XR knee RT 3V Stat Discontinued Medications Hydrocodone Bitart/Acetaminophen (Steele 5/325) 2 tab PO NOW ONE Stop: 09/30/18 12:31 Last Admin: 09/30/18 12:52 Dose: 2 tab Gabapentin (Neurontin) 300 mg PO NOW ONE Stop: 09/30/18 13:59 Last Admin: 09/30/18 14:24 Dose: 300 mg Ketorolac Tromethamine (Toradol) 60 mg IM NOW ONE Stop: 09/30/18 12:31 Last Admin: 09/30/18 13:05 Dose: 60 mg Lidocaine (Lidoderm) 1 each TOP NOW ONE Stop: 09/30/18 13:59 Last Admin: 09/30/18 14:24 Dose: 1 each Vital Signs - 8 hr 09/30/18 11:54 09/30/18 15:24 Temperature 98.8 F Pulse Rate 97 H 71 Respiratory Rate 16 18 Blood Pressure 146/98 H Blood Pressure [Left Arm] 126/87 Pulse Oximetry 98 98 <DO Brianna Marshall Last Filed: 09/30/18 19:05> Orders Ordered: ED Orders 09/30/18 12:32 XR knee LT 3V Stat XR knee RT 3V Stat Discontinued Medications Hydrocodone Bitart/Acetaminophen (Steele 5/325) 2 tab PO NOW ONE Stop: 09/30/18 12:31 Last Admin: 09/30/18 12:52 Dose: 2 tab Gabapentin (Neurontin) 300 mg PO NOW ONE Stop: 09/30/18 13:59 Last Admin: 09/30/18 14:24 Dose: 300 mg Ketorolac Tromethamine (Toradol) 60 mg IM NOW ONE Stop: 09/30/18 12:31 Last Admin: 09/30/18 13:05 Dose: 60 mg Lidocaine (Lidoderm) 1 each TOP NOW ONE Stop: 09/30/18 13:59 Last Admin: 09/30/18 14:24 Dose: 1 each Vital Signs - 8 hr 09/30/18 11:54 09/30/18 15:24 Temperature 98.8 F Pulse Rate 97 H 71 Respiratory Rate 16 18 Blood Pressure 146/98 H Blood Pressure [Left Arm] 126/87 Pulse Oximetry 98 98 MDM - Extremity Injury (Lower) <DANILO Haas - Last Filed: 09/30/18 16:43> Imaging Data Left knee pain: Radiologist's impression: [place] [address] XRay Report Signed Patient: Megan Bower LMR#: [id number] : 1960Acct:[id number] Age/Sex: 58 / FDate of Service: 09/30/18 Loc: ED Accession Number: [id number] Procedure: XR knee LT 3V Ordering Provider: An Sebastian PROCEDURE: XR KNEE LT 3V INDICATIONS: knee pain, patient states dislocated patella TECHNIQUE: 3 views of the knee were acquired. COMPARISON: [facility], , KNEE 3V RIGHT, 05/25/2017, 19:57. FINDINGS: Bones: Mild to moderate tricomponent osteoarthritis in left knee is seen. No fractures or dislocations. No suspicious bony lesions. No patella subluxation is seen. Soft tissues: No joint effusion. No suspicious soft tissue calcifications. IMPRESSION: Rdib-cb-fmxizamv tricompartmental osteoarthritis. No fracture or dislocation. No patella subluxation. No significant joint effusion. Dictated by: Dagoberto Yanez M.D. on 09/30/2018 at 13:19 Approved by: Dagoberto Yanez M.D. on 09/30/2018 at 13:20 Right knee xray : Radiologist's impression: [address] [place] [address] XRay Report Signed Patient: Megan Bower LMR#: [id number] : 1960Acct:[id number] Age/Sex: 58 / FDate of Service: 09/30/18 Loc: ED Accession Number: [id number] Procedure: XR knee RT 3V Ordering Provider: An Sebastian PROCEDURE: XR KNEE RT 3V INDICATIONS: knee pain, patient states dislocated patella TECHNIQUE: 3 views of the knee were acquired. COMPARISON: [facility], , KNEE 3V RIGHT, 05/25/2017, 19:57. FINDINGS: Bones: Otci-uu-gignrkvd tricompartment osteoarthritis is seen, slightly progressed since previous study. No fractures or dislocations. No suspicious bony lesions. No patella subluxation. Soft tissues: Small joint effusion is seen.. No suspicious soft tissue calcifications. IMPRESSION: Worsening ilax-cf-wxmvynlz tricompartment osteoarthritis with small joint effusion. Dictated by: Dagoberto Yanez M.D. on 09/30/2018 at 13:16 Approved by: Dagoberto Yanez M.D. on 09/30/2018 at 13:19 [facility] Narrative Medical decision making narrative: Patient is a 58 year female presents with bilateral knee pain, left worse than right. She had x-rays that shows bilateral arthritis. She does complain of patellar subluxation bilaterally. This is not present on exam or x-ray. I discussed at length follow up with her primary care provider. She was placed in a left knee immobilizer. She was treated for pain with Steele, gabapentin and a lidocaine patch was able to ambulate well after this. She of note has not been taking her scheduled gabapentin and ran out of her recent Steele from her wrist surgery. I discussed at length follow up with primary care provider gave her contact information for Orthopedics. Patient has no questions or concerns upon discharge. Discharge Plan Departure Patient Disposition: Home Clinical Impression: Bilateral knee pain Qualifiers: Chronicity: unspecified Qualified Code(s): M25.561 - Pain in right knee Discharge Date/Time: 09/30/18 15:36 Interventions: ED Discharge Assessment Last Done: 09/30/18 15:35 Instructions: DI for Knee Sprain, How To Perform RICE (Rest, Ice, Compress, Elevate), DI for Knee Pain, DI for Leg Pain Activity Restrictions/Additional Instructions: Please follow up with primary care provider. I have also given you contact information for [facility]. Please use rest ice compression elevation. Come back to emergency department for any acute concerns such as chest pain shortness of breath. I also suggest restarting the gabapentin as per your previous prescription. Prescriptions: New hydrocodone-acetaminophen [Steele] 5-325 mg tablet 1 tab PO Q4-6H PRN (Reason: pain) Qty: 7 RF: 0 lidocaine 5 % adhesive patch,medicated 1 patch TOP DAILY Qty: 15 RF: 0 No Action gabapentin 100 MG capsule 100 mg PO BEDTIME Qty: 0 RF: 0 albuterol sulfate [Proventil HFA] 90 MCG/PUFF HFA aerosol inhaler 1 puff INH Q4-6H PRN (Reason: Wheezing) Qty: 0 RF: 0 multivitamin [Multiple Vitamins] 1 EACH tablet 1 tab PO QDAY Qty: 0 RF: 0 ibuprofen 200 MG tablet 200 mg PO QID PRN (Reason: Pain (Scale Score 1-3)) Qty: 0 RF: 0 calcium carbonate 500 MG tablet 1 tab PO DAILY Qty: 0 RF: 0 omega 0-hxb-kum-fish oil [Fish Oil] 1,000 MG capsule 1,000 mg PO DAILY Qty: 0 RF: 0 ascorbic acid (vitamin C) 500 MG tablet 2 tab PO DAILY Qty: 0 RF: 0 vitamin B complex [B Complex-Vitamin B12] 1 EACH tablet 1 tab PO DAILY Qty: 0 RF: 0 simvastatin 20 mg tablet 20 mg PO QPM RF: 0 alprazolam 0.25 mg Tablet 0.25 mg PO TID PRN (Reason: Anxiety) RF: 0 hydrocodone-acetaminophen 7.5-325 mg tablet 1 tab PO QID RF: 0 Referrals: [facility] [Provider Group] Rachell Alves MD [Primary Care Provider] - <An Sin DO - Last Filed: 09/30/18 19:05> Cosign ED Attending Cosignature Attestation: I was immediately available in the department for consultation. This documentation has been reviewed and I agree with assessment and plan. Supervised by An Sin, DO
[2018-09-30] MEDS: HYDROCODONE/ACET 5/325 TABLET 2 TAB PO (12:52)
[2018-09-30] MEDS: KETOROLAC 60 MG/2 ML VIAL IM (13:05)
[2018-09-30] MEDS: GABAPENTIN 300 MG CAPSULE PO (14:24)
[2018-09-30] MEDS: LIDOCAINE PATCH 1 EACH ADH..PATCH TOP (14:24)
[2018-09-30 15:24] VITALS: BP 126/87; PULSE 71; RESP 18; O2SAT 98
== END 2018-09-30 15:36 | disposition home or self-care (01) ==
PROVIDERS: Emergency Provider Nurse Practitioner Family; PCP Internal Medicine
DX: M25.561 Pain in right knee (principal); M25.562 Pain in left knee
CPT/HCPCS: 73562; 96372; 99283; J1885

== ENCOUNTER 2018-11-11 11:25 | Emergency (ER) | payer OTHER, MEDICAID, SELFPAY ==
[2018-11-11 11:25] VITALS: BP 108/80; PULSE 77; RESP 18; TEMP 36.3; O2SAT 100
--- NOTE | 2018-11-11 11:54 | ED_ITS ---
HPI - General Adult General Chief complaint: Skin/Abscess/Foreign Body Stated complaint: Possible Measles Time Seen by Provider: 11/11/18 11:29 Source: patient and other (Dr. Alves) Mode of arrival: ambulatory Limitations: no limitations History of Present Illness HPI narrative: This is a 58-year-old female who is sent from her primary care for evaluation for rash. Dr. Alves asked if we would evaluate for possible measles. Patient states her symptoms have been going on for several months she states that it has become worse recently. She notices it initially with her scalp but it is on her entire body. She states between her fingers, she notes that on her soles. Patient states that it is very itchy. Patient has not had any fevers, she denies any cold cough, congestion, no itchy or irritated eyes, she has not had any infectious type symptoms otherwise. No sore throat. She states that she does have a dog in the house, no other family contact members or close friends with similar symptoms. The dog has been itchy lately she gave him a bath recently and states it has been flea season. She denies any other chest pain, shortness of breath no nausea vomiting no other GI or urinary symptoms. Patient has been using coconut oil without any improvement. She states Benadryl makes her feel any gross. But she is willing to try some hydroxyzine. Related Data Home Medications Medication Instructions Recorded Confirmed gabapentin 100 mg PO BEDTIME #0 05/25/17 09/30/18 albuterol sulfate [Proventil HFA] 1 puff INH Q4-6H PRN #0 09/07/17 09/30/18 ascorbic acid (vitamin C) 2 tab PO DAILY #0 09/07/17 09/30/18 calcium carbonate 1 tab PO DAILY #0 09/07/17 09/30/18 ibuprofen 200 mg PO QID PRN #0 09/07/17 09/30/18 multivitamin [Multiple Vitamins] 1 tab PO QDAY #0 09/07/17 09/30/18 omega 2-tgf-tkt-fish oil [Fish Oil] 1,000 mg PO DAILY #0 09/07/17 09/30/18 vitamin B complex [B 1 tab PO DAILY #0 09/07/17 09/30/18 Complex-Vitamin B12] alprazolam 0.25 mg PO TID PRN 10/29/17 09/30/18 hydrocodone-acetaminophen 1 tab PO QID 12/29/17 09/30/18 simvastatin 20 mg PO QPM 09/30/18 09/30/18 Previous Rx's Medication Instructions Recorded hydrocodone-acetaminophen [[place]] 1 tab PO Q4-6H PRN #7 tab 09/30/18 lidocaine 1 patch TOP DAILY #15 each 09/30/18 hydroxyzine HCl 25 mg PO QID PRN #14 tab 11/11/18 permethrin 1 applictn TOP Q14D 1 Days #60 gram 11/11/18 Allergies Allergy/AdvReac Type Severity Reaction Status Date / Time prochlorperazine Allergy Severe Hallucinati Verified 06/24/18 20:29 [From Compazine] ng cheese [CHEESE] Allergy Unknown Verified 03/28/18 21:06 codeine [CODEINE] Allergy Unknown Verified 03/28/18 21:06 Sulfa (Sulfonamide Allergy Unknown Verified 03/28/18 21:06 Antibiotics) [SULFA (SULFONAMIDE ANTIBIOTICS)] Penicillins AdvReac Mild Irritable Verified 03/28/18 21:07 DARK CHOCOLATE Allergy Unknown Uncoded 03/28/18 21:06 Review of Systems Review of Systems ROS Unobtainable: All systems reviewed & are unremarkable except as noted in HPI and below Constitutional Denies chills and Denies fever(s) Eyes Denies eye discharge, Denies irritation and Denies other (conjunctivitis) ENT Ears, Nose, Mouth, and Throat: Denies nasal congestion Cardiovascular Denies chest pain and Denies dyspnea Respiratory Denies change in phlegm color, Denies chest congestion, Denies cough and Denies dyspnea Gastrointestinal Gastrointestinal: Denies abdominal pain, Denies change in bowel habits, Denies diarrhea, Denies nausea and Denies vomiting Genitourinary Denies hematuria, Denies dysuria and Denies urinary urgency Musculoskeletal Denies arthralgias Integumentary/Breasts Reports as per HPI, Reports rash and Reports other (itching.) [facility] Medical History Anxiety (Chronic) Rheumatoid arthritis (Chronic) 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 HEENT: Atraumatic, pupils are equal round reactive to light, extraocular movements are intact, no conjunctivitis, nares are clear, TMs are clear with no fluid. Throat is clear without any exudates, erythema, tonsillar enlargement or uvular deviation HEART: Regular rate and rhythm without murmur, clicks, rubs. LUNGS:Lungs clear to auscultation, no wheezes, rales, crackles, chest moves symmetrically ABD:bowel sounds normal, soft, non-tender, no guarding, rebound, rigidity, no masses noted, no hepatosplenomegaly MSCL: Non-tender, no muscle atrophy, muscles strength 5/5 upper and lower extremities, full range of motion, sitting in car. NEURO:CN 2-12 intact, sensation normal Initial Vital Signs Initial Vital Signs: Vital Signs Temperature 97.4 F L 11/11/18 11:25 Pulse Rate 77 11/11/18 11:25 Respiratory Rate 18 11/11/18 11:25 Blood Pressure 108/80 11/11/18 11:25 Pulse Oximetry 100 11/11/18 11:25 Course Vital Signs - 8 hr 11/11/18 11:25 Temperature 97.4 F L Pulse Rate 77 Respiratory Rate 18 Blood Pressure 108/80 Pulse Oximetry 100 Medical Decision Making MDM Narrative Medical decision making narrative: Patient has had symptoms on and off for several months making this highly unlikely to be a measles case. Does not appear consistent with a typical measles rash although it did start mostly on the scalp according the patient she has it throughout her body. It has been waxing and waning over several months but worsened recently. She does have a daughter who has been itching a lot lately she did give him a bath. She has states it is fully season. We discussed potentially cause, my suspicion is also scabies. Patient was concerned about psoriasis and recommended dermatology referral if she is not improving with treatment. We also discussed possibly fungal as a source. Discharge Plan Departure Patient Disposition: Home Clinical Impression: Rash Discharge Date/Time: 11/11/18 12:23 Interventions: ED Discharge Assessment Last Done: 11/11/18 12:23 Instructions: DI for Rash Activity Restrictions/Additional Instructions: Follow-up with your primary care in the next 3-5 days or with Dermatology for recheck. Apply cream from neck down on your entire body, leave on overnight and then rinse off the next morning. You may do this 1 additional x7 days later. Take hydroxyzine 1 tablet every 6 hours as needed for symptoms. Prescriptions sent to [facility]. Return to the emergency department for fevers greater than 100.4, cold cough or conjunctivitis, new skin changes or other rashes, shortness of breath, chest pain, persistent vomiting, black or bloody stools or other new or concerning symptoms. Prescriptions: New permethrin 5 % cream 1 applictn TOP Q14D 1 Days Qty: 60 RF: 0 hydroxyzine HCl 25 mg tablet 25 mg PO QID PRN (Reason: itching) Qty: 14 RF: 0 No Action gabapentin 100 MG capsule 100 mg PO BEDTIME Qty: 0 RF: 0 albuterol sulfate [Proventil HFA] 90 MCG/PUFF HFA aerosol inhaler 1 puff INH Q4-6H PRN (Reason: Wheezing) Qty: 0 RF: 0 multivitamin [Multiple Vitamins] 1 EACH tablet 1 tab PO QDAY Qty: 0 RF: 0 ibuprofen 200 MG tablet 200 mg PO QID PRN (Reason: Pain (Scale Score 1-3)) Qty: 0 RF: 0 calcium carbonate 500 MG tablet 1 tab PO DAILY Qty: 0 RF: 0 omega 1-rjg-bnd-fish oil [Fish Oil] 1,000 MG capsule 1,000 mg PO DAILY Qty: 0 RF: 0 ascorbic acid (vitamin C) 500 MG tablet 2 tab PO DAILY Qty: 0 RF: 0 vitamin B complex [B Complex-Vitamin B12] 1 EACH tablet 1 tab PO DAILY Qty: 0 RF: 0 simvastatin 20 mg tablet 20 mg PO QPM RF: 0 hydrocodone-acetaminophen [[place]] 5-325 mg tablet 1 tab PO Q4-6H PRN (Reason: pain) Qty: 7 RF: 0 lidocaine 5 % adhesive patch,medicated 1 patch TOP DAILY Qty: 15 RF: 0 alprazolam 0.25 mg Tablet 0.25 mg PO TID PRN (Reason: Anxiety) RF: 0 hydrocodone-acetaminophen 7.5-325 mg tablet 1 tab PO QID RF: 0 Referrals: Rachell Alves MD [Primary Care Provider] -
== END 2018-11-11 12:23 | disposition home or self-care (01) ==
PROVIDERS: Emergency Provider Emergency Medicine; PCP Internal Medicine
DX: R21 Rash and other nonspecific skin eruption (principal)
CPT/HCPCS: 99282; 99283

== ENCOUNTER 2020-01-11 18:12 | Emergency (ER) | payer OTHER, MEDICAID, SELFPAY ==
[2020-01-11 18:27] VITALS: BP 134/71; PULSE 90; O2SAT 97
[2020-01-11 18:29] VITALS: BP 134/71; PULSE 90; RESP 19; TEMP 36.4; O2SAT 99
--- NOTE | 2020-01-11 18:43 | PC.NURSE ---
patient came into the ED complains of rash on hands and feet. She has had this rash for the last two weeks. She states that she can compare these symptoms to the last time her neighbor gave her scabies. She also complains of ringworm on her scalp and forehead.
--- NOTE | 2020-01-11 18:48 | ED.SKABFB ---
HPI - Skin/Abscess/Foreign Bdy <Addie Lui PA-C - Last Filed: 01/11/20 21:36> General Chief complaint: Skin/Abscess/Foreign Body Stated complaint: rash and cracking skin on hands Time Seen by Provider: 01/11/20 18:38 Source: patient Mode of arrival: Ambulatory Limitations: no limitations History of Present Illness HPI narrative: This is a well-appearing 59-year-old that presents with concerns for itching of her skin and worries that she might have scabies. She says that her palms and the soles of her feet itch and that actually her entire body has been itchy on and off for about 2 weeks. About a year ago she visited her neighbors and ended up getting scabies from this, she was treated for this. She says that this itchiness she is experiencing does feels slightly similar to that. This morning when she woke up she felt like the palms of her hands were dry and itchy and she had a small open spot on 1 palm from her skin cracking and so she decided to come to the emergency department. She says she saw her regular doctor in the last week and had her annual labs done and they told her that her liver enzymes are definitely elevated and she is scheduled for a liver ultrasound, as well as a follow-up appointment with her regular doctor. She says she did not mention the itching that she has been experiencing when she had her appointment. She also mentions that her dog has ringworm and she has a small slightly erythematous slightly itchy area on her forehead that developed in the last couple days and is concerned that this could be ringworm. 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 She has not tried taking any Benadryl she does take daily cetirizine for seasonal allergies. She denies any new detergents, new pets, new environmental exposures, new on wash clothing, new living environment, nausea, vomiting, abdominal pain, rash, or any other symptoms. complaint: rash (itching) Tetanus up to date: unsure Location: generalized, L hand, R hand, L foot and R foot Severity: mild Quality: pruritic Pain Consistency: intermittent Exacerbating factors: none Context: none Associated symptoms: denies other symptoms Treatments prior to arrival: none Related Data Home Medications Medication Instructions Recorded Confirmed gabapentin 100 mg PO BEDTIME #0 05/25/17 09/30/18 albuterol sulfate [Proventil HFA] 1 puff INH Q4-6H PRN #0 09/07/17 09/30/18 ascorbic acid (vitamin C) 2 tab PO DAILY #0 09/07/17 09/30/18 calcium carbonate 1 tab PO DAILY #0 09/07/17 09/30/18 ibuprofen 200 mg PO QID PRN #0 09/07/17 09/30/18 multivitamin [Multiple Vitamins] 1 tab PO QDAY #0 09/07/17 09/30/18 omega [id number]-fish oil [Fish Oil] 1,000 mg PO DAILY #0 09/07/17 09/30/18 vitamin B complex [B 1 tab PO DAILY #0 09/07/17 09/30/18 Complex-Vitamin B12] alprazolam 0.25 mg PO TID PRN 10/29/17 09/30/18 hydrocodone-acetaminophen 1 tab PO QID 12/29/17 09/30/18 simvastatin 20 mg PO QPM 09/30/18 09/30/18 Previous Rx's Medication Instructions Recorded hydrocodone-acetaminophen [[place]] 1 tab PO Q4-6H PRN #7 tab 09/30/18 lidocaine 1 patch TOP DAILY #15 each 09/30/18 hydroxyzine HCl 25 mg PO QID PRN #14 tab 11/11/18 Allergies Allergy/AdvReac Type Severity Reaction Status Date / Time prochlorperazine Allergy Severe Hallucinati Verified 06/24/18 20:29 [From Compazine] ng cheese [CHEESE] Allergy Unknown Verified 03/28/18 21:06 codeine [CODEINE] Allergy Unknown Verified 03/28/18 21:06 Sulfa (Sulfonamide Allergy Unknown Verified 03/28/18 21:06 Antibiotics) [SULFA (SULFONAMIDE ANTIBIOTICS)] Penicillins AdvReac Mild Irritable Verified 03/28/18 21:07 DARK CHOCOLATE Allergy Unknown Uncoded 03/28/18 21:06 Review of Systems <Addie Lui PA-C - Last Filed: 01/11/20 21:36> Review of Systems Narrative: GENERAL: Denies chills, fatigue, malaise, fever, sweats. HEENT: Denies sinus pain, ear pain, sore throat, difficulty swallowing, dizziness. RESPIRATORY: Denies dyspnea, cough, wheezing, hemoptysis, sputum. CARDIOVASCULAR: Denies chest pain, palpitations, orthopnea, edema, GASTROINTESTINAL: Denies nausea, vomiting, abdominal pain, diarrhea, constipation, melena. : Denies dysuria, frequency, incontinence, hematuria, urinary retention. MUSCULOSKELETAL: denies weakness, joint pain, or bony pain SKIN: Positive for dry itchy skin on palms and feet states chronic dry skin on hands and palms, positive for intermittent generalized itching of her skin, negative for rash, skin lesions, or other NEUROLOGIC: Denies weakness, headache, numbness, change in speech, confusion, seizures, incoordination. PSYCHIATRIC: No concerning psychosocial issues. 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 Well-nourished, well-developed patient, in mild distress. HEAD: Atraumatic. Normocephalic. EYES: Pupils equal round and reactive. Extraocular motions intact. No scleral icterus. No injection or drainage. ENT: Nose without bleeding, purulent drainage. Throat without erythema, tonsillar hypertrophy or exudate. Airway patent. NECK: Trachea midline. Non tender CARDIOVASCULAR: Regular rate and rhythm without murmurs, gallops, or rubs. RESPIRATORY: Clear to auscultation. Breath sounds equal bilaterally. No wheezes, rales, or rhonchi. GASTROINTESTINAL: Abdomen soft, non-tender, nondistended. Surgical scar in the RUQ. EXTREMITIES: No edema or joint tenderness. BACK: Nontender without deformity or crepitance. No flank tenderness. NEURO: AOx3. SKIN: Skin of the palms is dry, slightly irritated looking, non erythematous. There is a less than 1 cm skin crack in a left palm that is very shallow. She has a less than 1 cm slightly papular erythematous area with poorly defined borders, nontender, on her left forehead above her left eyebrow, otherwise she has no apparent rash or lesions on her skin. Initial Vital Signs Initial Vital Signs: Vital Signs Pulse Rate 90 01/11/20 18:27 Blood Pressure 134/71 01/11/20 18:27 Pulse Oximetry 97 01/11/20 18:27 <Tommie Little DO - Last Filed: 01/11/20 21:38> Initial Vital Signs Initial Vital Signs: Vital Signs Pulse Rate 90 01/11/20 18:27 Blood Pressure 134/71 01/11/20 18:27 Pulse Oximetry 97 01/11/20 18:27 Scores <Addie Lui PA-C - Last Filed: 01/11/20 21:36> GCS Reva coma scale eye opening: Spontaneous [place] coma scale verbal response: Orientated [place] coma scale motor response: Obey commands Reva coma scale total score: 15 Course <LISA Lagunas Last Filed: 01/11/20 21:36> Orders Ordered: Discontinued Medications Diphenhydramine HCl (Benadryl) 25 mg PO NOW ONE Stop: 01/11/20 19:13 Last Admin: 01/11/20 19:25 Dose: 25 mg Documented by: DALJIT Vital Signs Vital signs: Vital Signs - 8 hr 01/11/20 18:27 01/11/20 18:29 01/11/20 19:32 Temperature 97.6 F Pulse Rate 90 90 Respiratory Rate 19 Blood Pressure 134/71 134/71 Pulse Oximetry 97 99 100 01/11/20 19:33 Temperature Pulse Rate 79 Respiratory Rate Blood Pressure 126/62 Pulse Oximetry 98 <DO Brianna Marie Last Filed: 01/11/20 21:38> Orders Ordered: Discontinued Medications Diphenhydramine HCl (Benadryl) 25 mg PO NOW ONE Stop: 01/11/20 19:13 Last Admin: 01/11/20 19:25 Dose: 25 mg Documented by: DALJIT Vital Signs Vital signs: Vital Signs - 8 hr 01/11/20 18:27 01/11/20 18:29 01/11/20 19:32 Temperature 97.6 F Pulse Rate 90 90 Respiratory Rate 19 Blood Pressure 134/71 134/71 Pulse Oximetry 97 99 100 01/11/20 19:33 Temperature Pulse Rate 79 Respiratory Rate Blood Pressure 126/62 Pulse Oximetry 98 MDM - Skin/Abscess/Foreign Bdy <Addie Lui PA-C - Last Filed: 01/11/20 21:36> Differential Diagnosis Differential diagnosis: Likely abscess of skin or subcutaneous tissue, viral exanthem, urticaria, allergic reaction to drug, eczema, contact dermatitis and other (scabies, ring worm, pruritis) Medical Records Attestation: I reviewed the patient's medical records. Lab Data Lab results narrative: Patient's recent labs are unavailable for review, elected to not draw labs today as she recently had been done at her primary care office and she is well appearing. [facility] Narrative Medical decision making narrative: This is a well-appearing alert 59-year-old who presents complaining of generalized pruritus that has been intermittent for the last 2 weeks. There is no clear evidence of a rash, cellulitis, or skin eruption that would suggest a contact dermatitis. I suspect that her itchiness is due to an internal process such as her liver or kidneys, she had an appointment in the last week with her primary care doctor who was concerned about her liver telling her that she had elevated liver studies and she says that she is planning to follow-up with him in the next week. I advised her to call him and discuss her symptoms of pruritus with him as it could be related to her liver. Did not believe that labs were warranted today, she will have close follow-up with her PCP. Emergency return precautions provided, all questions answered. Discharge Plan Departure Patient Disposition: Home Clinical Impression: Generalized pruritus Discharge Date/Time: 01/11/20 19:38 Instructions: DI for Itching Activity Restrictions/Additional Instructions: Thank you for letting us a part of her care in the emergency department today. I do not see evidence of scabies, ring worm or a clear rash on your skin, I think it is very possible that the intermittent itchiness you are experiencing is due to Internal changes in your body, this can happen when your liver is out of balance or your kidneys are out of balance. As you have recently had labs done with your doctor and you did have abnormal liver labs, and are going to have a liver ultrasound, I strongly recommend that you call your doctor and tell him about the itchiness you have been experiencing on and off for the last few weeks. I think it is very possible that the itching you are experiencing is due to an internal abnormality such as a problem with your liver because it can cause your whole body to itch and I do not see an obvious rash; nor have you had any known exposures to possible allergens. You can continue to use hypoallergenic cream on the dry skin of your hands. You can take Benadryl as needed to help you with the itching you are experiencing, and continue to take your regular cetirizine daily medication. Please do not take Benadryl prior to operating machinery or driving a car as it can be sedating and make you sleepy. If you develop any new or worsening symptoms please do not hesitate to seek medical care. Prescriptions: No Action gabapentin 100 MG capsule 100 mg PO BEDTIME Qty: 0 RF: 0 albuterol sulfate [Proventil HFA] 90 MCG/PUFF HFA aerosol inhaler 1 puff INH Q4-6H PRN (Reason: Wheezing) Qty: 0 RF: 0 multivitamin [Multiple Vitamins] 1 EACH tablet 1 tab PO QDAY Qty: 0 RF: 0 ibuprofen 200 MG tablet 200 mg PO QID PRN (Reason: Pain (Scale Score 1-3)) Qty: 0 RF: 0 calcium carbonate 500 MG tablet 1 tab PO DAILY Qty: 0 RF: 0 omega 0-pmi-pjm-fish oil [Fish Oil] 1,000 MG capsule 1,000 mg PO DAILY Qty: 0 RF: 0 ascorbic acid (vitamin C) 500 MG tablet 2 tab PO DAILY Qty: 0 RF: 0 vitamin B complex [B Complex-Vitamin B12] 1 EACH tablet 1 tab PO DAILY Qty: 0 RF: 0 simvastatin 20 mg tablet 20 mg PO QPM RF: 0 hydrocodone-acetaminophen [[place]] 5-325 mg tablet 1 tab PO Q4-6H PRN (Reason: pain) Qty: 7 RF: 0 lidocaine 5 % adhesive patch,medicated 1 patch TOP DAILY Qty: 15 RF: 0 alprazolam 0.25 mg Tablet 0.25 mg PO TID PRN (Reason: Anxiety) RF: 0 hydrocodone-acetaminophen 7.5-325 mg tablet 1 tab PO QID RF: 0 hydroxyzine HCl 25 mg tablet 25 mg PO QID PRN (Reason: itching) Qty: 14 RF: 0 Referrals: Rachell Alves MD [Primary Care Provider] - <Tommie Little DO - Last Filed: 01/11/20 21:38> Cosign ED Attending Cosignature Attestation: I was immediately available in the department for consultation. This documentation has been reviewed and I agree with assessment and plan. Supervised by Tommie Little DO
[2020-01-11] MEDS: diphenhydrAMINE 25 MG TABLET PO (19:25)
[2020-01-11 19:32] VITALS: O2SAT 100
[2020-01-11 19:33] VITALS: BP 126/62; PULSE 79; O2SAT 98
== END 2020-01-11 19:38 | disposition home or self-care (01) ==
PROVIDERS: Emergency Provider Student in an Organized Health Care Education/Training Program; PCP Internal Medicine
DX: L29.8 Other pruritus (principal)
CPT/HCPCS: 99282; 99283

== ENCOUNTER → 2020-09-27 12:06 | Outpatient (CLI) | payer OTHER, MEDICAID, SELFPAY ==
--- NOTE | 2020-09-27 12:09 | DI.MRI.S_ITS ---
PROCEDURE: MR LUMBAR SPINE WO CON INDICATIONS: Other intervertebral disc degeneration, lumbar reg TECHNIQUE: Noncontrast sagittal T1 spin echo and T2 fast echo, sagittal STIR, axial T1 and T2 fast spin echo through the lumbar spine. In cases with scoliosis, additional coronal T2 fast spin echo may be performed. COMPARISON: None. FINDINGS: Image quality: Excellent. Alignment and Curvature: There is mild L4-L5 anterolisthesis secondary to facet hypertrophy. Bone Marrow: Mild reactive endplate changes noted adjacent to the L5-S1 disc. No acute vertebral body compression fractures. Spinal Cord: Conus medullaris terminates at the L2 level. Visualized cord demonstrates normal signal and size. Paraspinous Soft Tissues: No paravertebral masses. T12-L1: Normal appearance. L1-L2: Loss of disc signal. Mild, diffuse disc bulge. Mild bilateral facet hypertrophy. Mild narrowing of the central canal. Mild bilateral neural foraminal narrowing. No neural compression. L2-L3: Loss of disc signal. Mild, diffuse disc bulge. Mild bilateral facet hypertrophy. Mild to moderate narrowing of the central canal. Mild bilateral neural foraminal narrowing. No neural compression. L3-L4: Loss of disc signal. Mild, diffuse disc bulge. Mild bilateral facet hypertrophy. Mild to moderate narrowing of the central canal. Mild bilateral neural foraminal narrowing. No neural compression. L4-L5: Loss of disc signal and height. Mild, diffuse disc bulge. Severe bilateral facet hypertrophy. Moderate ligamentum flavum hypertrophy. Severe narrowing of the central canal with mild compression of the traversing nerve roots of the cauda equina. Severe right and moderate to severe left neural foraminal narrowing with compression of the exiting right L4 nerve root and slight compression of the exiting left L4 nerve root. L5-S1: Loss of disc signal and height. Mild, diffuse disc bulge. Moderate bilateral facet hypertrophy. No central stenosis. Severe bilateral neural foraminal narrowing with compression of the exiting L5 nerve roots. IMPRESSION: 1. Grade 1 L4-L5 degenerative spondylolisthesis. 2. Multilevel degenerative disc disease. 3. Multilevel facet arthropathy. 4. Severe L4-L5 central canal narrowing with compression of the nerve roots of the cauda equina. 5. Severe right and moderate to severe left neural foraminal narrowing with compression of the exiting L4 nerve roots. Severe bilateral L5-S1 neural foraminal narrowing with compression of the exiting bilateral L5 nerve roots. Dictated by: Esther Aviles MD, PhD on 09/27/2020 at 15:36 Approved by: Esther Aviles MD, PhD on 09/27/2020 at 15:43
== END ==
PROVIDERS: PCP Internal Medicine; Referring Provider Internal Medicine; Visit Provider Internal Medicine
DX: M51.36 Other intervertebral disc degeneration, lumbar region (principal); M47.816 Spondylosis without myelopathy or radiculopathy, lumbar region; M47.817 Spondylosis without myelopathy or radiculopathy, lumbosacral region; M48.061 Spinal stenosis, lumbar region without neurogenic claudication; M48.07 Spinal stenosis, lumbosacral region; M43.16 Spondylolisthesis, lumbar region
CPT/HCPCS: 72148

== ENCOUNTER 2020-11-21 15:41 | Emergency (ER) | payer OTHER, MEDICAID, SELFPAY ==
[2020-11-21] VITALS (9 sets, daily range): BP systolic 101–169; BP diastolic 56–99; PULSE 73–88; RESP 14–18; TEMP 36.6; O2SAT 96–99; BMI 23.4
--- NOTE | 2020-11-21 18:48 | ED_ITS ---
HPI - Back Pain/Injury General Chief Complaint: Back Pain/Injury Stated Complaint: sent by DR Castellano for back pain Time Seen by Provider: 11/21/20 18:45 Source: patient Limitations: no limitations History of Present Illness HPI Narrative: About 5 years of progressive back pain who has been on chronic pain management with monthly home nurse visits and progressive neurologic symptoms over the last number of years significantly worse over the last 18 months to the point that she is having difficulty standing because of bilateral lower extremity weakness. She has lower extremity decreased sensation bilaterally from hips down. After much duress she was able to have her primary care physician order an MRI that was done on 09/27. It showed severe L4-5 central canal narrowing with compression of the nerve roots of the cauda equina. It also shows severe bilateral narrowing and compression of L4 nerve roots and L5 nerve roots. Today she noted that she no longer had sensation to her perineum and over the course of the day has become incontinent of urine. She does note that it had been more and more difficult to start urinating over the last 2-3 days. MRI scan was reviewed by Dr. Yanez, orthopedic surgeon who talked with her over th e phone 2 days ago (there has not been an office visit yet) and recommended referral to the [facility] for definitive treatment. Did go over signs and symptoms of cauda equina syndrome and recommend she go to the ER should she be developing them. She denies any fever, cough, chest pain, dyspnea, headache. She has severe back pain as she has for a number of years. Related Data Home Medications Medication Instructions Recorded Confirmed gabapentin 100 mg PO BEDTIME #0 05/25/17 09/30/18 albuterol sulfate [Proventil HFA] 1 puff INH Q4-6H PRN #0 09/07/17 09/30/18 ascorbic acid (vitamin C) 2 tab PO DAILY #0 09/07/17 09/30/18 calcium carbonate 1 tab PO DAILY #0 09/07/17 09/30/18 ibuprofen 200 mg PO QID PRN #0 09/07/17 09/30/18 multivitamin [Multiple Vitamins] 1 tab PO QDAY #0 09/07/17 09/30/18 omega 0-ujb-pso-fish oil [Fish Oil] 1,000 mg PO DAILY #0 09/07/17 09/30/18 vitamin B complex [B 1 tab PO DAILY #0 09/07/17 09/30/18 Complex-Vitamin B12] alprazolam 0.25 mg PO TID PRN 10/29/17 09/30/18 hydrocodone-acetaminophen 1 tab PO QID 12/29/17 09/30/18 simvastatin 20 mg PO QPM 09/30/18 09/30/18 Previous Rx's Medication Instructions Recorded hydrocodone-acetaminophen [[place]] 1 tab PO Q4-6H PRN #7 tab 09/30/18 lidocaine 1 patch TOP DAILY #15 each 09/30/18 hydroxyzine HCl 25 mg PO QID PRN #14 tab 11/11/18 Allergies Allergy/AdvReac Type Severity Reaction Status Date / Time prochlorperazine Allergy Severe Hallucinati Verified 11/21/20 15:46 [From Compazine] ng cheese [CHEESE] Allergy Unknown Verified 11/21/20 15:46 codeine [CODEINE] Allergy Unknown Verified 11/21/20 15:46 Sulfa (Sulfonamide Allergy Unknown Verified 11/21/20 15:46 Antibiotics) [SULFA (SULFONAMIDE ANTIBIOTICS)] Penicillins AdvReac Mild Irritable Verified 11/21/20 15:46 DARK CHOCOLATE Allergy Unknown Uncoded 03/28/18 21:06 Review of Systems Review of Systems Narrative: Remainder of complete review of systems is otherwise unremarkable except for that included in the HPI. Patient History Medical History (Updated 11/21/20 @ 23:21 by Thao Giang MD) Abnormal finding on EKG Anxiety Cauda equina compression Rheumatoid arthritis 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 Surgical History H/O hernia repair History of hysterectomy for benign disease Hx of cholecystectomy Social History Smoking Status: Current every day smoker Smoking Status: Current every day smoker alcohol intake frequency: holidays/special occasions only Substance Use Type: does not use Exam Narrative Exam Narrative: General: Thin woman in severe distress both emotionally and severe back pain. She is able to give a full and complete history and speak in full sentences HEENT: Moist mucous membranes, normal sclera with reactive pupils, Respiratory: Lungs are clear to auscultation, no wheezing no rales no rhonchi. Full and symmetrical air movement Cardiac: Regular rate and rhythm no murmurs no bruits Abdomen: Soft, nontender, good bowel tones, no flank pain Skin: Cool with mottling over the lower extremities that she states is her baseline Neurologic: Bilateral leg weakness to the point she is having trouble supporting herself. No reflexes at patella is or ankles. Decreased sensation from hips down. No sensation to the perineum and now she is incontinent of urine. Extremities: No trauma, perfusion consistent with Raynaud syndrome Psych: Anxious, frightened but can be redirected and refocused Initial Vital Signs Initial Vital Signs: Vital Signs Temperature 97.8 F 11/21/20 15:42 Pulse Rate 88 11/21/20 15:42 Respiratory Rate 14 11/21/20 15:42 Blood Pressure 129/77 11/21/20 15:42 Pulse Oximetry 99 11/21/20 15:42 Course Orders Ordered: ED Orders 11/21/20 22:45 COVID19 -Nasal swab/Pre-Proc Stat Complete Blood Count AUTO DIFF Stat Comprehensive Metabolic Panel Stat Discontinued Medications Hydrocodone Bitart/Acetaminophen (Hydrocodone/Acet 5/325 Tablet) 2 tab PO NOW ONE Stop: 11/21/20 19:05 Last Admin: 11/21/20 19:44 Dose: 2 tab Documented by: [email or web address] Hydromorphone HCl (Hydromorphone 1 Mg Inj) 1 mg IV Q30MIN PRN PRN Reason: pain Last Admin: 11/22/20 00:38 Dose: 1 mg Documented by: [email or web address] Admin: 11/21/20 23:10 Dose: 1 mg Documented by: [email or web address] Ketorolac Tromethamine (Ketorolac 30 Mg/Ml Vial) 30 mg IM NOW ONE Stop: 11/21/20 19:05 Last Admin: 11/21/20 19:44 Dose: 30 mg Documented by: [email or web address] Vital Signs Vital signs: Vital Signs - 8 hr 11/21/20 22:52 11/21/20 22:54 11/21/20 22:56 Pulse Rate 80 84 86 Respiratory Rate Blood Pressure 104/56 L 101/58 L Pulse Oximetry 96 97 98 11/22/20 00:43 Pulse Rate 74 Respiratory Rate 16 Blood Pressure 97/58 L Pulse Oximetry 97 MDM - Back Pain/Injury Lab Data Result diagrams: 11/21/20 22:45 11/21/20 22:45 Labs: Lab Results 11/21/20 11/21/20 11/21/20 Range/Units 22:45 22:45 22:45 WBC 7.3 (4.5-11.0) X10^3/uL RBC 3.79 L (4.0-5.2) X10^6/uL Hgb 12.6 (12.0-16.0) g/dL Hct 36.2 (36-46) % MCV 95.7 (80-100) fL MCH 33.2 (26-34) PG MCHC 34.7 (30-36) % RDW 12.8 (11.6-14.8) % Plt Count 254 (150-400) X10^3/uL Neut % (Auto) 56.9 (50-75) % Lymph % (Auto) 36.3 (25-40) % [place] % (Auto) 5.1 (3-14) % Eos % (Auto) 1.4 L (2-4) % Baso % (Auto) 0.3 (0-2) % Neut # (Auto) 4200 (6790-6186) /uL Lymph # (Auto) 2700 (9703-0934) /uL [place] # (Auto) 400 (0-900) /uL Eos # (Auto) 100 (0-450) /uL Baso # (Auto) 0 (0-100) /uL Sodium 138 (137-145) mmol/L Potassium 3.8 (3.4-5.1) mmol/L Chloride 107 (98-107) mmol/L Carbon Dioxide 24 (22-32) mmol/L BUN 22 H (7-17) mg/dL Creatinine 0.88 (0.52-1.04) mg/dL Estimated GFR > 60.0 (>60) mL/min BUN/Creatinine Ratio 25.0 H (6-22) Glucose 109 (80-110) mg/dL Calcium 9.1 (8.4-10.2) mg/dL Total Bilirubin 0.6 (0.2-1.3) mg/dL AST 37 H (14-36) IU/L ALT 31 (<35) IU/L Alkaline Phosphatase 66 (38-126) U/L Total Protein 7.1 (6.3-8.2) g/dL Albumin 4.4 (3.5-5.0) g/dL Globulin 2.7 (1.7-4.1) g/dL Albumin/Globulin Ratio 1.6 (1.0-2.8) SARS-CoV-2 (PCR) Negative (Negative) Imaging Data MRI: Radiologist's Impression: FINDINGS: Image quality: Excellent. Alignment and Curvature: There is mild L4-L5 anterolisthesis secondary to facet hypertrophy. Bone Marrow: Mild reactive endplate changes noted adjacent to the L5-S1 disc. No acute vertebral body compression fractures. Spinal Cord: Conus medullaris terminates at the L2 level. Visualized cord demonstrates normal signal and size. Paraspinous Soft Tissues: No paravertebral masses. T12-L1: Normal appearance. L1-L2: Loss of disc signal. Mild, diffuse disc bulge. Mild bilateral facet hypertrophy. Mild narrowing of the central canal. Mild bilateral neural foraminal narrowing. No neural compression. L2-L3: Loss of disc signal. Mild, diffuse disc bulge. Mild bilateral facet hypertrophy. Mild to moderate narrowing of the central canal. Mild bilateral neural foraminal narrowing. No neural compression. L3-L4: Loss of disc signal. Mild, diffuse disc bulge. Mild bilateral facet hypertrophy. Mild to moderate narrowing of the central canal. Mild bilateral neural foraminal narrowing. No neural compression. L4-L5: Loss of disc signal and height. Mild, diffuse disc bulge. Severe b ilateral facet hypertrophy. Moderate ligamentum flavum hypertrophy. Severe narrowing of the central canal with mild compression of the traversing nerve roots of the cauda equina. Severe right and moderate to severe left neural foraminal narrowing with compression of the exiting right L4 nerve root and slight compression of the exiting left L4 nerve root. L5-S1: Loss of disc signal and height. Mild, diffuse disc bulge. Moderate bilateral facet hypertrophy. No central stenosis. Severe bilateral neural foraminal narrowing with compression of the exiting L5 nerve roots. IMPRESSION: 1. Grade 1 L4-L5 degenerative spondylolisthesis. 2. Multilevel degenerative disc disease. 3. Multilevel facet arthropathy. 4. Severe L4-L5 central canal narrowing with compression of the nerve roots of the cauda equina. 5. Severe right and moderate to severe left neural foraminal narrowing with compression of the exiting L4 nerve roots. Severe bilateral L5-S1 neural foraminal narrowing with compression of the exiting bilateral L5 nerve roots. Dictated by: Esther Aviles MD, PhD on 09/27/2020 at 15:36 MDM Narrative Medical decision making narrative: 60-year-old woman with severe back pain progressive lower extremity weakness MRI confirming severe L4 and 5 stenosis with compression of the cauda equina today with progressive neurologic findings with increasing lower extremity weakness bilaterally now with perineal numbness and developing urinary incontinence. Pain is also significantly worsened. [id number] was sent to [facility]. Reviewed findings with transfer center waiting for Neurosurgery to review and return a call [phone] Dr Falk - ortho spine at [facility] transport to [facility] ER Discharge Plan Departure Patient Disposition: er Acute [facility] Clinical Impression: Cauda equina syndrome Prescriptions: No Action gabapentin 100 MG capsule 100 mg PO BEDTIME Qty: 0 RF: 0 albuterol sulfate [Proventil HFA] 90 MCG/PUFF HFA aerosol inhaler 1 puff INH Q4-6H PRN (Reason: Wheezing) Qty: 0 RF: 0 multivitamin [Multiple Vitamins] 1 EACH tablet 1 tab PO QDAY Qty: 0 RF: 0 ibuprofen 200 MG tablet 200 mg PO QID PRN (Reason: Pain (Scale Score 1-3)) Qty: 0 RF: 0 calcium carbonate 500 MG tablet 1 tab PO DAILY Qty: 0 RF: 0 omega 3-nxh-lol-fish oil [Fish Oil] 1,000 MG capsule 1,000 mg PO DAILY Qty: 0 RF: 0 ascorbic acid (vitamin C) 500 MG tablet 2 tab PO DAILY Qty: 0 RF: 0 vitamin B complex [B Complex-Vitamin B12] 1 EACH tablet 1 tab PO DAILY Qty: 0 RF: 0 simvastatin 20 mg tablet 20 mg PO QPM RF: 0 hydrocodone-acetaminophen [[place]] 5-325 mg tablet 1 tab PO Q4-6H PRN (Reason: pain) Qty: 7 RF: 0 lidocaine 5 % adhesive patch,medicated 1 patch TOP DAILY Qty: 15 RF: 0 alprazolam 0.25 mg Tablet 0.25 mg PO TID PRN (Reason: Anxiety) RF: 0 hydrocodone-acetaminophen 7.5-325 mg tablet 1 tab PO QID RF: 0 hydroxyzine HCl 25 mg tablet 25 mg PO QID PRN (Reason: itching) Qty: 14 RF: 0 Referrals: Rachell Alves MD [Primary Care Provider] -
[2020-11-21] MEDS: KETOROLAC 30 MG/ML VIAL IM (19:44)
[2020-11-21] MEDS: HYDROCODONE/ACET 5/325 TABLET 2 TAB PO (19:44)
[2020-11-21 22:56] LABS: Add Manual Diff / Slide Review NO; Basophils Absolute Auto 0 /uL (0-100); Basophils Percent Auto 0.3 % (0-2); Eosinophils Absolute Auto 100 /uL (0-450); Eosinophils Percent Auto 1.4 % (2-4); Hematocrit 36.2 % (36-46); Hemoglobin 12.6 g/dL (12.0-16.0); Lymphocytes Absolute Auto 2700 /uL (1100-4500); Lymphocytes Percent Auto 36.3 % (25-40); Mean Corpuscular HGB Conc 34.7 % (30-36); Mean Corpuscular Hemoglobin 33.2 PG (26-34); Mean Corpuscular Volume 95.7 fL (80-100); Monocytes Absolute Auto 400 /uL (0-900); Monocytes Percent Auto 5.1 % (3-14); Neutrophils Absolute Auto 4200 /uL (1500-7000); Neutrophils Percent Auto 56.9 % (50-75); Platelet Count 254 X10^3/uL (150-400); Red Blood Cell Count 3.79 X10^6/uL (4.0-5.2); Red Cell Distribution Width 12.8 % (11.6-14.8); White Blood Cell Count 7.3 X10^3/uL (4.5-11.0)
[2020-11-21 23:03] LABS: Alanine Aminotransferase 31 IU/L (<35); Albumin 4.4 g/dL (3.5-5.0); Albumin Globulin Ratio 1.6 (1.0-2.8); Alkaline Phosphatase 66 U/L (38-126); Aspartate Aminotransferase 37 IU/L (14-36); Bilirubin Total 0.6 mg/dL (0.2-1.3); Blood Urea Nitrogen 22 mg/dL (7-17); Calcium 9.1 mg/dL (8.4-10.2); Carbon Dioxide 24 mmol/L (22-32); Chloride 107 mmol/L (98-107); Estimated Glomerular Filt Rate > 60.0 mL/min (>60); Globulin 2.7 g/dL (1.7-4.1); Glucose 109 mg/dL (80-110); HEMOLYSIS < 15 (0-50); Potassium 3.8 mmol/L (3.4-5.1); Sodium 138 mmol/L (137-145); Total Protein 7.1 g/dL (6.3-8.2)
[2020-11-21] MEDS: HYDROMORPHONE 1 MG INJ IV (23:10)
[2020-11-22 00:38] LABS: COVID19 -Nasal RAPID Negative (Negative)
[2020-11-22] MEDS: HYDROMORPHONE 1 MG INJ IV (00:38)
[2020-11-22 00:43] VITALS: BP 97/58; PULSE 74; RESP 16; O2SAT 97
== END 2020-11-22 00:46 | disposition short-term general hospital (02) ==
PROVIDERS: Emergency Provider Emergency Medicine; PCP Internal Medicine; Referring Provider Orthopaedic Surgery Orthopaedic Surgery of the Spine
DX: G83.4 Cauda equina syndrome (principal); Z20.822 Contact with and (suspected) exposure to COVID-19
CPT/HCPCS: 36415; 80053; 85025; 87635; 96372; 96374; 99284; C9803; J1170; J1885

== ENCOUNTER 2021-10-15 15:24 | Emergency (ER) | payer MEDICARE, MEDICAID, SELFPAY ==
[2021-10-15 15:27] VITALS: BP 144/70; PULSE 97; RESP 18; TEMP 36.7; O2SAT 97; BMI 23.3
[2021-10-15] MEDS: TET,DIPH,PERTUSS(ACELL),VAC/PF 0.5 ML SYRINGE IM (15:37)
[2021-10-15] MEDS: HYDROCODONE/ACET 5/325 TABLET 1 TAB PO (17:04)
[2021-10-15] MEDS: LIDOCAINE/PRILOCAINE 5 GM TOP (17:05)
--- NOTE | 2021-10-15 17:11 | PC.NURSE ---
Pt reports immediate pain relief after lidocaine cream applied topically to intact skin of thumb.
--- NOTE | 2021-10-15 18:41 | ED.WOUNDLAC ---
HPI - Wound/Laceration <Karlie Lawton PA-C - Last Filed: 10/15/21 19:56> General Chief Complaint: Wound/Laceration Stated Complaint: lt thums sliced the pad off Time Seen by Provider: 10/15/21 16:03 Source: patient Mode of arrival: Ambulatory History of Present Illness HPI narrative: Patient is a 61-year-old female with a with a thumb laceration from 2 days ago. She was cutting an apple and states she sliced the pad of her left thumb. She self applied a tourniquet to control bleeding, has been cleaning the wound with hydrogen peroxide, and has been keeping the wound dressed. She reports a foul smell coming from her wounds that she noticed earlier today which prompted her to come into the ER. She reports full sensation and range of motion in her finger. Wound is no longer actively bleeding. She reports moderate pain has taken no medications for pain management. Her tetanus is not up-to-date. Related Data Home Medications Medication Instructions Recorded Confirmed albuterol sulfate 90 mcg/actuation 1 puff INH Q4-6H PRN #0 09/07/17 05/22/21 aerosol inhaler (Proventil HFA) calcium carbonate 500 mg calcium 1 tab PO DAILY #0 09/07/17 05/22/21 (1,250 mg) tablet ibuprofen 200 mg tablet 200 mg PO QID PRN #0 09/07/17 05/22/21 multivitamin (Multiple Vitamins) 1 tab PO QDAY #0 09/07/17 05/22/21 omega 3-rzc-tnp-fish oil 1,000 mg 1,000 mg PO DAILY #0 09/07/17 05/22/21 (120 mg-180 mg) capsule (Fish Oil) vitamin B complex (B 1 tab PO DAILY #0 09/07/17 05/22/21 Complex-Vitamin B12) alprazolam 0.25 mg tablet 0.25 mg PO TID PRN 10/29/17 05/22/21 Calcium 1 tab PO DAILY 05/22/21 hydrocodone 10 mg-acetaminophen 1 tab PO TID tab 05/22/21 05/22/21 325 mg tablet Previous Rx's Medication Instructions Recorded lidocaine 5 % topical patch 1 patch TOP DAILY #15 each 09/30/18 doxycycline hyclate 100 mg capsule 100 mg PO BID 7 Days #14 cap 10/15/21 mupirocin 2 % topical ointment 1 applic TOPICAL BID #15 g 10/15/21 Allergies Allergy/AdvReac Type Severity Reaction Status Date / Time prochlorperazine Allergy Severe Hallucinati Verified 10/15/21 15:31 [From Compazine] ng cheese [CHEESE] Allergy Unknown Verified 10/15/21 15:31 codeine [CODEINE] Allergy Unknown Verified 10/15/21 15:31 Sulfa (Sulfonamide Allergy Unknown Verified 10/15/21 15:31 Antibiotics) [SULFA (SULFONAMIDE ANTIBIOTICS)] Penicillins AdvReac Mild Irritable Verified 10/15/21 15:31 DARK CHOCOLATE Allergy Unknown Uncoded 05/22/21 15:43 Review of Systems <Karlie Lawton PA-C - Last Filed: 10/15/21 19:56> Review of Systems ROS Unobtainable: All systems reviewed & are unremarkable except as noted in HPI and below Constitutional Constitutional: Denies chills, Denies fatigue, Denies fever(s), Denies frequent falls, Denies lethargy and Denies weakness Eyes Eyes: Denies change in vision, Denies eye discharge, Denies irritation and Denies loss of vision ENT Ears, Nose, Mouth, and Throat: Denies change in voice, Denies dizziness, Denies neck pain, Denies sore throat and Denies throat swelling Cardiovascular Cardiovascular: Denies chest pain, Denies irregular heart rhythm, Denies lightheadedness, Denies palpitations, Denies dyspnea, Denies dyspnea on exertion and Denies orthopnea Respiratory Respiratory: Denies cough, Denies dyspnea, Denies dyspnea on exertion and Denies wheezing Gastrointestinal Gastrointestinal: Denies abdominal pain, Denies change in bowel habits, Denies diarrhea, Denies nausea and Denies vomiting Genitourinary Genitourinary: Denies hematuria, Denies flank pain, Denies urinary incontinence and Denies urinary urgency Musculoskeletal Musculoskeletal: Denies back pain, Denies muscle weakness, Denies neck pain, Denies numbness and Denies tingling Integumentary/Breasts Skin/Breast: Reports skin pain, Reports skin swelling and Reports wounds Neurologic Neurologic: Denies behavioral changes, Denies confusion, Denies dizziness, Denies frequent falls, Denies loss of vision, Denies numbness, Denies tingling and Denies weakness Psychiatric Psychiatric: Denies anxiety, Denies behavioral changes, Denies confusion, Denies depression, Denies homicidal ideation and Denies suicidal ideation Endocrine Endocrine: Denies fatigue, Denies flushing and Denies palpitations Hematologic/Lymphatic Hematologic/Lymphatic: Denies easy bruising Allergic/Immunologic Allergic/Immunologic: Denies urticaria, Denies throat swelling and Denies wheezing Patient History <Karlie Lawton PA-C - Last Filed: 10/15/21 19:56> Medical History Abnormal finding on EKG ADHD Allergies Anemia (~2015) Ankle pain Anxiety Carpal tunnel syndrome Cauda equina compression Chronic back pain COPD (chronic obstructive pulmonary disease) Cubital tunnel syndrome Depression Eczema Fractures Lumbar pain Measles (~1970) Migraines Osteoarthritis Osteoporosis 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 Peripheral neuropathy Psoriasis PTSD (post-traumatic stress disorder) Restless leg syndrome Rheumatoid arthritis Scoliosis 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 Surgical History Anesthesia H/O hernia repair (~2016) History of carpal tunnel release (~1989) History of hysterectomy for benign disease (~2000) History of laminectomy (~2020) History of surgery (~1992) Hx of cholecystectomy (~1999) Family History Father Stroke Skin cancer Hypertension Hyperlipidemia Mother Diabetes mellitus History of heart disease Hypertension Hyperlipidemia Mental health problem Sister Glaucoma Arthritis Hyperlipidemia Hypertension Grandfather Mental health problem Social History Smoking Status: Current every day smoker Smoking Status: Current every day smoker alcohol intake frequency: 0-2 drinks per day Substance Use Type: does not use Exam <Karlie Lawton PA-C - Last Filed: 10/15/21 19:56> Narrative Exam Narrative: GENERAL: 61 year old patient appears stated age. Well-developed patient, in mild distress. HEAD: Atraumatic. Normocephalic. EYES: Pupils equal round and reactive. Extraocular motions intact. No scleral icterus. No injection or drainage. ENT: Nose without bleeding, purulent drainage. Throat without erythema, tonsillar hypertrophy or exudate. Airway patent. NECK: Trachea midline. Non tender CARDIOVASCULAR: Regular rate and rhythm without murmurs, gallops, or rubs. RESPIRATORY: Clear to auscultation. Breath sounds equal bilaterally. No wheezes, rales, or rhonchi. GASTROINTESTINAL: Abdomen soft, non-tender, nondistended. EXTREMITIES: No edema or joint tenderness. BACK: Nontender without deformity or crepitance. No flank tenderness. NEURO: AOx3. SKIN: Skin avulsion of right thumb, erythema, swelling, limited range of motion, pain with extension and flexion of finger Initial Vital Signs Initial Vital Signs: Vital Signs Temperature 98.1 F 10/15/21 15:27 Pulse Rate 97 H 10/15/21 15:27 Respiratory Rate 18 10/15/21 15:27 Blood Pressure 144/70 H 10/15/21 15:27 Pulse Oximetry 97 10/15/21 15:27 Procedures <Karlie Lawton PA-C - Last Filed: 10/15/21 19:56> Orthopedic Splinting/Casting Injury #1: Upper Extremity Immobilizer: thumb spica Post splinting neuro exam: intact Post splinting vascular exam: intact Placed by: Nursing Course <Karlie Lawton PA-C - Last Filed: 10/15/21 19:56> Orders Ordered: Discontinued Medications Hydrocodone Bitart/Acetaminophen (Hydrocodone/Acet 5/325 Tablet) 1 tab PO NOW ONE Stop: 10/15/21 16:57 Last Admin: 10/15/21 17:04 Dose: 1 tab Documented by: JUSTYN Diphtheria/Tetanus/Acell Pertussis (Tet,Diph,Pertuss(Acell),Vac/Pf 0.5 Ml Syringe) 0.5 ml IM .ONCE ONE Stop: 10/15/21 15:35 Last Admin: 10/15/21 15:37 Dose: 0.5 ml Documented by: TERA Lidocaine/Prilocaine (Lidocaine/Prilocaine 5 Gm) 5 gm TOP NOW ONE Stop: 10/15/21 16:49 Last Admin: 10/15/21 17:05 Dose: 5 gm Documented by: JUSTYN Vital Signs Vital signs: Vital Signs - 8 hr 10/15/21 15:27 Temperature 98.1 F Pulse Rate 97 H Respiratory Rate 18 Blood Pressure 144/70 H Pulse Oximetry 97 [facility] [place] - Wound/Laceration <Karlie Lawton PA-C - Last Filed: 10/15/21 19:56> [facility] [place] Narrative Medical decision making narrative: Patient is a 61-year-old female with a with a thumb laceration from 2 days ago. Upon inspection patient appears to have a skin avulsion of her left thumb. Wound is superficial with no visible bone present. There was no purulent drainage or foul odor present. Upon physical exam her finger was erythematous, moderately swollen, and the wound showed potential signs of cellulitis. She had limited range of motion, tenderness to palpation,and pain with extension. Due to concerns of cellulitis she was started on oral and topical antibiotics. She was given hydrocodone, Topical lidocaine was administered, her wound was redressed, and she was put in a thumb spica. I discussed warning signs of tenosynovitis such as spreading redness and inflammation up her hand, increased swelling, decreased and painful range of motion. Patient verbalized understanding and states she will return to the ED if any of those signs occur. Further instructed her to keep wounds clean, change dressings as needed, and to take her antibiotics as prescribed. Discharge Plan Departure Patient Disposition: Home Clinical Impression: Avulsion of skin Instructions: DI for Laceration Repair -- Finger Activity Restrictions/Additional Instructions: *You have been diagnosed with a skin avulsion. Please keep finger and dressing clean and take all antibiotics as prescribed. Return to the ER if any symptoms of spreading inflammation and redness up your hand, reduced thumb range of motion, or increased swelling as you may need to be treated with IV antibiotics. *What to do: *Please continue to take your regular medications as directed. [X ] New medication prescriptions sent to your pharmacy: [[facility]] [ ] New medication written as a paper prescription [ ] No new medications given *Please follow up with your primary care provider in 2-3 days, call for an appointment. Let them know you were seen in the Emergency Department and that we ask that you be seen in follow up. We will electronically transmit a record of today's note if your PCP is in our system *If you do not have a primary care provider please contact the [facility] Call Center at [phone] and they can help get you set up with a doctor in the community. *Return to Emergency Department if you should have any new, worsening or concerning symptoms, such as [fever greater than 101 F, shaking chills, worsening pain, persistent vomiting or other bothersome symptoms] Prescriptions: New mupirocin 2 % ointment 1 applic topical BID Qty: 15 0RF doxycycline hyclate 100 mg capsule 100 mg PO BID 7 Days Qty: 14 0RF No Action albuterol sulfate [Proventil HFA] 90 MCG/PUFF HFA aerosol inhaler 1 puff INH Q4-6H PRN (Reason: Wheezing) Qty: 0 0RF multivitamin [Multiple Vitamins] 1 EACH tablet 1 tab PO QDAY Qty: 0 0RF ibuprofen 200 MG tablet 200 mg PO QID PRN (Reason: Pain (Scale Score 1-3)) Qty: 0 0RF calcium carbonate 500 MG tablet 1 tab PO DAILY Qty: 0 0RF omega 7-fvk-mgm-fish oil [Fish Oil] 1,000 MG capsule 1,000 mg PO DAILY Qty: 0 0RF vitamin B complex [B Complex-Vitamin B12] 1 EACH tablet 1 tab PO DAILY Qty: 0 0RF hydrocodone-acetaminophen 10-325 mg tablet 1 tab PO TID 0RF Calcium 1,000 mg 1 tab PO DAILY 0RF lidocaine 5 % adhesive patch,medicated 1 patch TOP DAILY Qty: 15 0RF Rx Instructions: leave on most painful area for 12 hrs alprazolam 0.25 mg Tablet 0.25 mg PO TID PRN (Reason: Anxiety) 0RF Referrals: Fernie Tobar MD [Primary Care Provider] -
== END 2021-10-15 17:34 | disposition home or self-care (01) ==
PROVIDERS: Emergency Provider Physician Assistant; PCP Internal Medicine
DX: S61.012A Laceration without foreign body of left thumb without damage to nail, initial encounter (principal); W26.9XXA Contact with unspecified sharp object(s), initial encounter; Z23 Encounter for immunization
CPT/HCPCS: 90471; 99283; 99284; 90715

== ENCOUNTER 2023-03-24 17:20 | Emergency (ER) | payer MEDICARE, SELFPAY ==
[2023-03-24 18:01] VITALS: BP 114/56; PULSE 88; RESP 20; TEMP 37; O2SAT 98; BMI 23.8
--- NOTE | 2023-03-24 18:30 | ED.LOWEXIN ---
HPI - Extremity Injury (Lower) <Addie Hernandez PA-C - Last Filed: 03/24/23 18:59> General Chief Complaint: Extremity Injury, Lower Stated Complaint: lt foot pain, keeping her up at night Time Seen by Provider: 03/24/23 18:10 Source: patient Mode of arrival: Ambulatory History of Present Illness HPI Narrative: Patient is a 62-year-old female with a history of cauda equina treated with L4-L5 laminectomy with microdiscectomy who presents today with severe left foot pain. She is accompanied by her sister, who is a nurse. She reports this pain has been going on for 2 days, occurs in both feet but worse on the left. The pain feels like a muscle cramp but while the pain happens her foot is soft and does not appear cramped. The pain does not radiate down her legs. Her sensation is not changed from prior, she has had diminished sensation in her lower extremities and her feet for several years. She denies any injury or trauma that preceded this current episode of severe pain. She reports that for the past 2 years she has had significant back and lower extremity pain. She currently is without a primary care provider because she reports she was fired by them. Chart review shows that she was referred to pain management by Dr. Tobar in May of 2022 but it seems she did not return after her initial consult because they required her to give a urine sample for drug testing and she states I retain and I cannot pee on command. She also notes a concern that she has at least 1, maybe 2 hernias, in her abdomen at the sites of previous laparoscopic surgeries. These seem to be getting larger but do not cause her pain. Related Data Home Medications Medication Instructions Recorded Confirmed calcium carbonate 500 mg calcium 1 tab PO DAILY ##0 09/07/17 03/30/22 (1,250 mg) tablet ibuprofen 200 mg tablet 200 mg PO QID PRN Pain (Scale 09/07/17 03/30/22 Score 1-3) ##0 multivitamin (Multiple Vitamins 1 tab PO QDAY ##0 09/07/17 03/30/22 tablet) omega 6-nle-isx-fish oil 1,000 mg 1,000 mg PO DAILY ##0 09/07/17 03/30/22 (120 mg-180 mg) capsule (Fish Oil) vitamin B complex (B 1 tab PO DAILY ##0 04/10/18 10/31/22 Complex-Vitamin B12 tablet) Calcium 1 tab PO DAILY 05/22/21 03/30/22 Previous Rx's Medication Instructions Recorded gabapentin 300 mg capsule 300 mg PO BID #180 caps 02/27/22 albuterol sulfate 90 mcg/actuation 1 puff inhalation Q4-6H PRN 03/30/22 aerosol inhaler (Proventil HFA) Wheezing #8.5 grams cyclobenzaprine 5 mg tablet 5 mg PO TID PRN muscle spasm #10 03/24/23 tabs hydrocodone 7.5 mg-acetaminophen 1 tab PO Q6H PRN pain #10 tabs 03/24/23 325 mg tablet Allergies Allergy/AdvReac Type Severity Reaction Status Date / Time prochlorperazine Allergy Severe Hallucinati Verified 03/24/23 18:08 [From Compazine] ng cheese [CHEESE] Allergy Unknown Verified 03/24/23 18:08 codeine [CODEINE] Allergy Unknown Verified 03/24/23 18:08 Sulfa (Sulfonamide Allergy Unknown Verified 03/24/23 18:08 Antibiotics) [SULFA (SULFONAMIDE ANTIBIOTICS)] Penicillins AdvReac Mild Irritable Verified 03/24/23 18:08 DARK CHOCOLATE Allergy Unknown Uncoded 03/24/23 18:08 Review of Systems <Addie Hernandez PA-C - Last Filed: 03/24/23 18:59> Review of Systems ROS Unobtainable: All systems reviewed & are unremarkable except as noted in HPI and below Patient History <Addie Hernandez PA-C - Last Filed: 03/24/23 18:59> Medical History Chronic pain syndrome 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 Psoriasis Eczema Osteoarthritis COPD (chronic obstructive pulmonary disease) PTSD (post-traumatic stress disorder) Depression Restless leg syndrome Peripheral neuropathy Migraines ADHD Scoliosis Osteoporosis Lumbar pain Fractures Cubital tunnel syndrome Chronic back pain Carpal tunnel syndrome Ankle pain Measles (~1970) Anemia (~2015) Allergies Cauda equina compression Abnormal finding on EKG Anxiety 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 Rheumatoid arthritis Surgical History Anesthesia History of surgery (~1992) History of laminectomy (~2020) History of carpal tunnel release (~1989) History of hysterectomy for benign disease (~2000) Hx of cholecystectomy (~1999) H/O hernia repair (~2016) Family History Father Stroke Skin cancer Hypertension Hyperlipidemia Mother Diabetes mellitus History of heart disease Hypertension Hyperlipidemia Mental health problem Sister Glaucoma Arthritis Hyperlipidemia Hypertension Grandfather Mental health problem Social History Smoking Status: Current every day smoker Smoking Status: Current every day smoker alcohol intake frequency: 0-2 drinks per day Substance Use Type: does not use Exam <Addie Hernandez PA-C - Last Filed: 03/24/23 18:59> Narrative Exam Narrative: GENERAL: 62 year old patient appears stated age. Well-developed patient, in significant distress. Patient is crying and writhing in the chair. Her tone is quite angry when answering questions about her pain in her previous medical care. She appears quite frustrated. NEURO: AOx3. HEAD: Atraumatic. Normocephalic. EYES: Pupils equal round and reactive. Extraocular motions intact. No scleral icterus. No injection or drainage. ENT: Nose without bleeding or purulent drainage. Airway patent. NECK: Trachea midline. Non tender CARDIOVASCULAR: Regular rate and rhythm without murmurs, gallops, or rubs. RESPIRATORY: Clear to auscultation. Breath sounds equal bilaterally. No wheezes, rales, or rhonchi. GASTROINTESTINAL: Abdomen soft, non-tender, nondistended. EXTREMITIES: No edema or joint tenderness. No ecchymosis, erythema, edema of the foot at site of pain. No wounds on the bottom of her feet. SKIN: No rash or erythema of visible areas. Capillary refill in the foot is 2 seconds, 2+ DP pulse Initial Vital Signs Initial Vital Signs: Vital Signs Temperature 98.6 F 03/24/23 18:01 Pulse Rate 88 03/24/23 18:01 Respiratory Rate 20 03/24/23 18:01 Blood Pressure 114/56 L 03/24/23 18:01 Pulse Oximetry 98 03/24/23 18:01 Oxygen Delivery Method Room Air 03/24/23 18:01 <Cedrick Vaughn DO - Last Filed: 03/24/23 19:58> Initial Vital Signs Initial Vital Signs: Vital Signs Temperature 98.6 F 03/24/23 18:01 Pulse Rate 88 03/24/23 18:01 Respiratory Rate 20 03/24/23 18:01 Blood Pressure 114/56 L 03/24/23 18:01 Pulse Oximetry 98 03/24/23 18:01 Oxygen Delivery Method Room Air 03/24/23 18:01 Course <Addie Hernandez PA-C - Last Filed: 03/24/23 18:59> Orders Ordered: Discontinued Medications Hydrocodone Bitart/Acetaminophen (Hydrocodone/Acet 10/325 Tablet) 1 tab PO NOW ONE Stop: 03/24/23 18:24 Last Admin: 03/24/23 18:31 Dose: 1 tab Documented By: SU Vital Signs Vital signs: Vital Signs - 8 hr 03/24/23 18:01 Temperature 98.6 F Pulse Rate 88 Respiratory Rate 20 Blood Pressure 114/56 L Pulse Oximetry 98 Oxygen Delivery Method Room Air <Cedrick Vaughn DO - Last Filed: 03/24/23 19:58> Orders Ordered: Discontinued Medications Hydrocodone Bitart/Acetaminophen (Hydrocodone/Acet 10/325 Tablet) 1 tab PO NOW ONE Stop: 03/24/23 18:24 Last Admin: 03/24/23 18:31 Dose: 1 tab Documented By: SU Vital Signs Vital signs: Vital Signs - 8 hr 03/24/23 18:01 Temperature 98.6 F Pulse Rate 88 Respiratory Rate 20 Blood Pressure 114/56 L Pulse Oximetry 98 Oxygen Delivery Method Room Air MDM - Extremity Injury (Lower) <Addie Hernandez PA-C - Last Filed: 03/24/23 18:59> MDM Narrative Medical decision making narrative: Multiple etiologies for patient's symptoms considered including, but not limited to: Peripheral neuropathy, fracture, soft tissue injury, muscle spasm Patient's exam is unremarkable. There is no evidence of a bony injury or soft tissue injury in her foot. When she is having the pain, there is no visible muscle spasm or contraction of her foot. Her circulation is intact. Patient does not recall any injury or trauma to the foot and there is no evidence of this; suggested we obtain an x-ray to rule out any bony fracture and she declined stating she knows she did not injure it. There is no evidence of new deficit; patient is able to ambulate with a cane and a limp. Patient's pain addressed with hydrocodone in the emergency department. We had a long discussion between the patient, myself and her sister regarding reestablishing care with a primary care provider, referral to pain Medicine Clinic and trying acupuncture for pain relief. Patient is very hesitant to do any of these things but I provided some options for seeking providers that she might connect with. I will prescribe a short course of muscle relaxers and pain medicine; reviewed cautions with opiate medications and advised her that we will not refill these medications for this problem from this emergency room. She would need to establish with a primary care for chronic pain management. Referral to General surgery for evaluation of hernias is placed. Patient reports she previously had an ultrasound at another facility that showed the hernia. This was not repeated today. Patient's symptoms improved over duration of stay with above-stated therapies. Findings and discharge diagnosis discussed with patient/family followed by verbalization of understanding Return precautions discussed with patient/family whom verbalize understanding of diagnosis and plan Discharge Plan Departure Patient Disposition: Home Clinical Impression: Chronic pain in left foot Chronic pain Qualifiers: Chronic pain type: other chronic pain Qualified Code(s): G89.29 - Other chronic pain Instructions: Managing Chronic Low Back Pain, Low Back Pain (Alternative Therapy), DI for Low Back Pain Activity Restrictions/Additional Instructions: * as we discussed, I do not think imaging will help determine why you are having this pain today. I will prescribe a short course of muscle relaxers and pain medicine to help you through this acute pain. I would strongly encourage you to try to find a doctor that you can communicate with and perhaps try acupuncture for pain. I have attached the contact information for [facility] below, I would suggest you contact them to discuss your hernia concerns. It is possible that your insurance will require a referral from a primary care provider, but you can try based on this documentation. *What to do: *Please continue to take your regular medications as directed. [x] New medication prescriptions sent to your pharmacy: [facility] [ ] New medication written as a paper prescription [ ] No new medications given *Please follow up with your primary care provider in 2-3 days, call for an appointment. Let them know you were seen in the Emergency Department and that we ask that you be seen in follow up. We will electronically transmit a record of today's note if your PCP is in our system *If you do not have a primary care provider please contact the [facility] Resource line at [phone]. They will ask some questions about your medical history and help get you set up with a doctor in the community. *Return to Emergency Department if you should have any new, worsening or concerning symptoms, such as [fever greater than 101 F, shaking chills, worsening pain, persistent vomiting or other concerning symptoms]. Prescriptions: New cyclobenzaprine 5 mg tablet 5 mg PO TID PRN (Reason: muscle spasm) Qty: 10 0RF hydrocodone-acetaminophen 7.5-325 mg tablet 1 tab PO Q6H PRN (Reason: pain) Qty: 10 0RF No Action multivitamin [Multiple Vitamins] 1 EACH tablet 1 tab PO QDAY Qty: 0 ibuprofen 200 MG tablet 200 mg PO QID PRN (Reason: Pain (Scale Score 1-3)) Qty: 0 calcium carbonate 500 MG tablet 1 tab PO DAILY Qty: 0 omega 6-kfw-ziz-fish oil [Fish Oil] 1,000 MG capsule 1,000 mg PO DAILY Qty: 0 vitamin B complex [B Complex-Vitamin B12] 1 EACH tablet 1 tab PO DAILY Qty: 0 Calcium 1,000 mg 1 tab PO DAILY gabapentin 300 mg capsule 300 mg PO BID Qty: 180 3RF albuterol sulfate [Proventil HFA] 90 mcg/actuation HFA aerosol inhaler 1 puff inhalation Q4-6H PRN (Reason: Wheezing) Qty: 8.5 3RF Referrals: [facility] [Provider Group] Fernie Tobar MD [Primary Care Provider] - Stand Alone Forms: Patient Portal/API ED Sign-out <Cedrick Vaughn, DO - Last Filed: 03/24/23 19:58> Cosign ED Attending Cosignature Attestation: Dr Vaughn Co-Sign Statement: I was available for consultation during this patient's emergency department visit. This chart is signed by myself for administrative purposes only. I did not have direct contact with this patient during this visit. They were seen independently by the [facility].
[2023-03-24] MEDS: HYDROCODONE/ACET 10/325 TABLET 1 TAB PO (18:31)
== END 2023-03-24 19:04 | disposition home or self-care (01) ==
PROVIDERS: Emergency Provider Physician Assistant; PCP Internal Medicine
DX: G89.29 Other chronic pain (principal)
CPT/HCPCS: 99283

== ENCOUNTER → 2023-04-27 11:12 | Outpatient (CLI) | payer MEDICARE, SELFPAY ==
--- NOTE | 2023-04-27 11:13 | DI.CT.S_ITS ---
PROCEDURE: CT ABDOMEN PELVIS W CON INDICATIONS: ventral hernia TECHNIQUE: After the administration of intravenous contrast, axial sections acquired from the lung bases to the pubic symphysis. Coronal and sagittal reformats were performed. For radiation dose reduction, the following was used: automated exposure control, adjustment of mA and/or kV according to patient size. COMPARISON: [facility], CT, CT ABDOMEN PELVIS W CON, 03/28/2018, 23:13. FINDINGS: Image quality: Excellent. Patient is status post cholecystectomy. There is prominence of the common bile duct measuring 1.6 cm in maximal dimension to the level of the ampulla however this remains stable from prior examination. No significant intrahepatic bile duct dilatation is seen. There is a subtle micro nodular surface to the liver question some degree of mild hepatic cirrhosis. Clinical correlation is recommended. Spleen, adrenals, kidneys, pancreas, and visualized large and small bowel appear within normal limits. Patient is status post prior hysterectomy. The appendix is not definitely visualized however I see no significant pericecal inflammatory change. There is a small periumbilical hernia containing omental fat. The lung bases are clear. No adenopathy seen within the abdomen or pelvis. No free fluid is present. There are some atherosclerotic vascular calcifications present. IMPRESSION: 1. No evidence for acute intra-abdominal process identified. 2. Small periumbilical hernia containing omental fat. 3. Status post cholecystectomy. 4. Stable prominence of the common bile duct to 1.6 cm to the level of the ampulla. 5. Subtle micronodular surface liver question some degree of mild hepatic cirrhosis. Clinical correlation is recommended. 3. Mild atherosclerotic change. 4. Status post hysterectomy. Dictated by: Cedrick Deshpande M.D. on 04/27/2023 at 13:58 Approved by: Cedrick Deshpande M.D. on 04/27/2023 at 14:15
[2023-04-27 11:51] LABS: Estimated Glomerular Filt Rate > 60 mL/min (>60)
== END ==
PROVIDERS: PCP Internal Medicine; Referring Provider Surgery; Visit Provider Surgery
DX: K43.9 Ventral hernia without obstruction or gangrene (principal); K42.9 Umbilical hernia without obstruction or gangrene; Z90.49 Acquired absence of other specified parts of digestive tract; Z90.710 Acquired absence of both cervix and uterus
CPT/HCPCS: 36415; 74177; 82565; Q9967

== ENCOUNTER 2024-03-11 19:13 | Emergency (ER) | payer MEDICARE, SELFPAY ==
[2024-03-11 19:29] VITALS: BP 130/76; PULSE 85; RESP 12; TEMP 36.5; O2SAT 98; BMI 25.4
--- NOTE | 2024-03-11 21:08 | ED.WOUNDLAC ---
HPI - Wound/Laceration General Chief Complaint: Wound/Laceration Stated Complaint: Gash on R Leg Time Seen by Provider: 03/11/24 21:08 Source: patient Mode of arrival: Family Vehicle History of Present Illness HPI narrative: Patient is a healthy 63-year-old female who presents today with a right leg laceration. There was something wrong with her wrong washer she was using some sort of chisel slipped and it got her right anterior thigh. Neurovascularly intact. Related Data Home Medications Medication Instructions Recorded Confirmed calcium carbonate 1 tab PO DAILY ##0 09/07/17 04/15/23 ibuprofen 200 mg tablet 200 mg PO QID PRN Pain (Scale 09/07/17 04/15/23 Score 1-3) ##0 multivitamin (Multiple Vitamins 1 tab PO QDAY ##0 09/07/17 04/15/23 tablet) omega 5-gyo-dsg-fish oil 1,000 mg 1,000 mg PO DAILY ##0 09/07/17 04/15/23 (120 mg-180 mg) capsule (Fish Oil) vitamin B complex (B 1 tab PO DAILY ##0 09/07/17 04/15/23 Complex-Vitamin B12 tablet) Calcium 1 tab PO DAILY 05/22/21 04/15/23 Previous Rx's Medication Instructions Recorded gabapentin 300 mg capsule 300 mg PO BID #180 caps 02/27/22 albuterol sulfate 90 mcg/actuation 1 puff inhalation Q4-6H PRN 03/30/22 aerosol inhaler (Proventil HFA) Wheezing #8.5 grams cyclobenzaprine 5 mg tablet 5 mg PO TID PRN muscle spasm #10 03/24/23 tabs hydrocodone 5 mg-acetaminophen 325 1 tab PO Q8H PRN pain #10 tabs 03/24/23 mg tablet hydrocodone 7.5 mg-acetaminophen 1 tab PO Q6H PRN pain #10 tabs 03/24/23 325 mg tablet Allergies Allergy/AdvReac Type Severity Reaction Status Date / Time prochlorperazine Allergy Severe Hallucinati Verified 03/11/24 19:33 [From Compazine] ng cheese [CHEESE] Allergy Unknown Verified 03/11/24 19:33 codeine [CODEINE] Allergy Unknown Verified 03/11/24 19:33 Sulfa (Sulfonamide Allergy Unknown Verified 10/12/24 19:33 Antibiotics) [SULFA (SULFONAMIDE ANTIBIOTICS)] adhesive tape Allergy Rash Verified 03/11/24 19:33 Penicillins AdvReac Mild Irritable Verified 03/11/24 19:33 DARK CHOCOLATE Allergy Unknown Uncoded 03/11/24 19:33 Patient History Medical History Chronic pain syndrome 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 Psoriasis Eczema Osteoarthritis COPD (chronic obstructive pulmonary disease) PTSD (post-traumatic stress disorder) Depression Restless leg syndrome Peripheral neuropathy Migraines ADHD Scoliosis Osteoporosis Lumbar pain Fractures Cubital tunnel syndrome Chronic back pain Carpal tunnel syndrome Ankle pain Measles (~1970) Anemia (~2015) Allergies Cauda equina compression Abnormal finding on EKG Anxiety 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 Rheumatoid arthritis Surgical History Anesthesia History of surgery (~1992) History of laminectomy (~2020) History of carpal tunnel release (~1989) History of hysterectomy for benign disease (~2000) Hx of cholecystectomy (~1999) H/O hernia repair (~2016) Family History Father Stroke Skin cancer Hypertension Hyperlipidemia Mother Diabetes mellitus History of heart disease Hypertension Hyperlipidemia Mental health problem Sister Glaucoma Arthritis Hyperlipidemia Hypertension Grandfather Mental health problem Social History marital status: unmarried,single household members: none lives independently: Yes occupational status: disabled Smoking Status: Current every day smoker alcohol intake: former substance use type: does not use Smoking Status: Current every day smoker tobacco type: cigarettes alcohol intake frequency: 0-2 drinks per day Substance Use Type: does not use Exam Initial Vital Signs Initial Vital Signs: Vital Signs Temperature 97.7 F 03/11/24 19:29 Pulse Rate 85 03/11/24 19:29 Respiratory Rate 12 03/11/24 19:29 Blood Pressure 130/76 03/11/24 19:29 Pulse Oximetry 98 03/11/24 19:29 Oxygen Delivery Method Room Air 03/11/24 19:29 GENERAL: Well-appearing, well-nourished and in no acute distress. CARDIOVASCULAR: peripheral pulses in tact, cap refill <2 sec RESPIRATORY: No respiratory distress, speaks in full sentences without difficulty EXTREMITIES: Normal range of motion, no clubbing or edema. Neurovascularly intact NEUROLOGICAL: Cranial nerves II through XII grossly intact. Normal gait and speech. SKIN: Right leg laceration 3.5 cm Procedures Laceration Repair Laceration 1: Site: lower extremity Size (cm): 3.5 Description: linear Depth: simple, single layer Local Anesthetic: lidocaine 1% Amount of anesthesia used (mL): 5 Pre-repair: wound explored Skin layer closed with: nylon Skin layer suture size: 4-0 Number of sutures: 3 Technique: simple, interrupted Course Vital Signs Vital signs: Vital Signs - 8 hr 03/11/24 19:29 03/11/24 21:17 Temperature 97.7 F 98.1 F Pulse Rate 85 85 Respiratory Rate 12 16 Blood Pressure 130/76 133/63 Pulse Oximetry 98 95 Oxygen Delivery Method Room Air Room Air MDM - Wound/Laceration MDM Narrative Medical decision making narrative: Patient is 63-year-old female presents today with right leg laceration. It is simple with good skin approximation linear. It is easily repaired. No antibiotics indicated. Discharge Plan Departure Patient Disposition: Home Clinical Impression: Laceration Instructions: DI for Laceration Repair Activity Restrictions/Additional Instructions: 1. Have your suture removed in 5-7 days, you may go to walk-in clinic, return to the ER or call your primary care physician. 2. No soaking in water including dishes, bathtubs, Lakes, swimming pools etc May apply antibiotic ointment 1-2 times daily 3. Signs of infection include, but not limited to, increased redness, increased swelling, increased pain, fever and purulent drainage, if the symptoms should arise, you may need an antibiotic and you should have a reevaluation either by your primary care provider or by the emergency department. Prescriptions: No Action multivitamin [Multiple Vitamins] 1 EACH tablet 1 tab PO QDAY Qty: 0 ibuprofen 200 MG tablet 200 mg PO QID PRN (Reason: Pain (Scale Score 1-3)) Qty: 0 calcium carbonate 500 MG tablet 1 tab PO DAILY Qty: 0 omega 2-lrs-mwo-fish oil [Fish Oil] 1,000 MG capsule 1,000 mg PO DAILY Qty: 0 vitamin B complex [B Complex-Vitamin B12] 1 EACH tablet 1 tab PO DAILY Qty: 0 Calcium 1,000 mg 1 tab PO DAILY gabapentin 300 mg capsule 300 mg PO BID Qty: 180 3RF albuterol sulfate [Proventil HFA] 90 mcg/actuation HFA aerosol inhaler 1 puff inhalation Q4-6H PRN (Reason: Wheezing) Qty: 8.5 3RF cyclobenzaprine 5 mg tablet 5 mg PO TID PRN (Reason: muscle spasm) Qty: 10 0RF hydrocodone-acetaminophen 7.5-325 mg tablet 1 tab PO Q6H PRN (Reason: pain) Qty: 10 0RF hydrocodone-acetaminophen 5-325 mg tablet 1 tab PO Q8H PRN (Reason: pain) Qty: 10 0RF Referrals: Lance Mendoza MD [Primary Care Provider] - Stand Alone Forms: Patient Portal/API
[2024-03-11 21:17] VITALS: BP 133/63; PULSE 85; RESP 16; TEMP 36.7; O2SAT 95
== END 2024-03-11 21:18 | disposition home or self-care (01) ==
PROVIDERS: Emergency Provider Emergency Medicine; PCP Internal Medicine
DX: S81.811A Laceration without foreign body, right lower leg, initial encounter (principal); W45.8XXA Other foreign body or object entering through skin, initial encounter
CPT/HCPCS: 12002; 99282; 99283

== ENCOUNTER 2024-04-18 16:25 | Emergency (ER) | payer MEDICARE, SELFPAY ==
[2024-04-18 16:51] VITALS: BP 125/61; PULSE 82; RESP 16; TEMP 36.7; O2SAT 98; BMI 26.4
[2024-04-18] MEDS: OXYCODONE IR 5 MG TABLET PO (17:11)
--- NOTE | 2024-04-18 17:11 | PC.NURSE ---
case discussed w/ md eric; pain medication ordered. imaging held off at this time
[2024-04-18 20:03] LABS: Bacteria Urine Few (2-10); Ictotest Urine Negative (Negative); RBC Urine None Seen (0-5/HPF); Squamous Epithelial Cell Urine 0-1 /HPF (0-5/HPF); Urine Volume 10mL (spun); WBC Urine 5-10/HPF (0-5/HPF)
--- NOTE | 2024-04-18 22:58 | PC.NURSE ---
Pt reports hx cauda equina 3 years ago and s/p spine surgery. States that she has chronic L leg weakness and incontinence. Taking 6000 mg ibuprofen daily for pain at home. Pt reports pain is normally 6/10 but last 3 days pain is 10/10. Pt reports worsening L leg weakness and difficulty walking. Pt had minor pain relief after oxycodone earlier. Denies injury.
[2024-04-18 23:56] VITALS: BP 108/55; PULSE 76; O2SAT 99
--- NOTE | 2024-04-19 00:37 | ED_ITS ---
HPI - Back Pain/Injury General Chief Complaint: Back Pain/Injury Stated Complaint: severe back pain, no known injury Time Seen by Provider: 04/19/24 00:37 History of Present Illness HPI Narrative: Patient is a healthy 63-year-old female presents today worsening back pain. She has a history of cauda equina syndrome she had surgery 3 years ago. She reports that she had symptoms ongoing for years in her primary provider never believed her. Finally she saw surgeon she had surgery. She has had ongoing left leg weakness. She has no urinary incontinence. She lives in pain as 6-7 daily. However over the last couple of days she has had increasing pain in the left side she does feel like she was some sciatica going down. She says this is not like her cauda equina syndrome. She no longer has a primary care provider. She has been taking ibuprofen without any kind of relief. She was extremely upset and tired she has not had any kind of sleep and a number days. No fever chills no injections. Related Data Home Medications Medication Instructions Recorded Confirmed calcium carbonate 1 tab PO DAILY ##0 09/07/17 04/15/23 ibuprofen 200 mg tablet 200 mg PO QID PRN Pain (Scale 09/07/17 04/15/23 Score 1-3) ##0 multivitamin (Multiple Vitamins 1 tab PO QDAY ##0 09/07/17 04/15/23 tablet) omega 0-uxk-rbi-fish oil 1,000 mg 1,000 mg PO DAILY ##0 09/07/17 04/15/23 (120 mg-180 mg) capsule (Fish Oil) vitamin B complex (B 1 tab PO DAILY ##0 09/07/17 04/15/23 Complex-Vitamin B12 tablet) Calcium 1 tab PO DAILY 05/22/21 04/15/23 Previous Rx's Medication Instructions Recorded gabapentin 300 mg capsule 300 mg PO BID #180 caps 02/27/22 albuterol sulfate 90 mcg/actuation 1 puff inhalation Q4-6H PRN 03/30/22 aerosol inhaler (Proventil HFA) Wheezing #8.5 grams cyclobenzaprine 5 mg tablet 5 mg PO TID PRN muscle spasm #10 03/24/23 tabs hydrocodone 5 mg-acetaminophen 325 1 tab PO Q8H PRN pain #10 tabs 03/24/23 mg tablet hydrocodone 7.5 mg-acetaminophen 1 tab PO Q6H PRN pain #10 tabs 03/24/23 325 mg tablet cyclobenzaprine 5 mg tablet 5 mg PO TID PRN muscle spasm #20 04/19/24 tabs oxycodone 5 mg tablet 5 mg PO Q6H PRN pain #14 tabs 04/19/24 prednisone 20 mg tablet 40 mg (2 x 20 mg) PO DAILY #10 tabs 04/19/24 Allergies Allergy/AdvReac Type Severity Reaction Status Date / Time prochlorperazine Allergy Severe Hallucinati Verified 04/18/24 16:51 [From Compazine] ng cheese [CHEESE] Allergy Unknown Verified 04/18/24 16:51 codeine [CODEINE] Allergy Unknown Verified 04/18/24 16:51 Sulfa (Sulfonamide Allergy Unknown Verified 04/18/24 16:51 Antibiotics) [SULFA (SULFONAMIDE ANTIBIOTICS)] adhesive tape Allergy Rash Verified 04/18/24 16:51 Penicillins AdvReac Mild Irritable Verified 04/18/24 16:51 DARK CHOCOLATE Allergy Unknown Uncoded 04/18/24 16:51 Patient History Medical History Chronic pain syndrome 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 Psoriasis Eczema Osteoarthritis COPD (chronic obstructive pulmonary disease) PTSD (post-traumatic stress disorder) Depression Restless leg syndrome Peripheral neuropathy Migraines ADHD Scoliosis Osteoporosis Lumbar pain Fractures Cubital tunnel syndrome Chronic back pain Carpal tunnel syndrome Ankle pain Measles (~1970) Anemia (~2015) Allergies Cauda equina compression Abnormal finding on EKG Anxiety 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 Rheumatoid arthritis Surgical History Anesthesia History of surgery (~1992) History of laminectomy (~2020) History of carpal tunnel release (~1989) History of hysterectomy for benign disease (~2000) Hx of cholecystectomy (~1999) H/O hernia repair (~2016) Family History Father Stroke Skin cancer Hypertension Hyperlipidemia Mother Diabetes mellitus History of heart disease Hypertension Hyperlipidemia Mental health problem Sister Glaucoma Arthritis Hyperlipidemia Hypertension Grandfather Mental health problem Social History marital status: unmarried,single household members: none lives independently: Yes occupational status: disabled Smoking Status: Current every day smoker alcohol intake: former substance use type: does not use Smoking Status: Current every day smoker tobacco type: cigarettes alcohol intake frequency: 0-2 drinks per day Substance Use Type: does not use Exam Initial Vital Signs Initial Vital Signs: Vital Signs Temperature 98.1 F 04/18/24 16:51 Pulse Rate 82 04/18/24 16:51 Respiratory Rate 16 04/18/24 16:51 Blood Pressure 125/61 04/18/24 16:51 Pulse Oximetry 98 04/18/24 16:51 Oxygen Delivery Method Room Air 04/18/24 16:51 GENERAL: Tearful 63-year-old female CARDIOVASCULAR: peripheral pulses in tact, cap refill <2 sec RESPIRATORY: No respiratory distress, speaks in full sentences without difficulty BACK: No vertebral tenderness incision site noted L4-L5 region old she is tender to the left of it reproducible to touch. No flank pain. She does have some decreased sensation on the left she says that is not new. EXTREMITIES: Normal range of motion, no clubbing or edema. Neurovascularly intact NEUROLOGICAL: Cranial nerves II through XII grossly intact. Normal gait and speech. SKIN: Warm, dry, no petechiae, no rashes or lesions. Course Orders Ordered: ED Orders 04/18/24 19:38 Ictotest Urine Stat Urine Culture Stat Urine Microscopic Stat Discontinued Medications Cyclobenzaprine HCl (Cyclobenzaprine 10 Mg Prepack) 1 bottle MISC DIRECTED ONE Stop: 04/19/24 00:53 Last Admin: 04/19/24 01:03 Dose: 1 bottle Documented By: MICHAEL Oxycodone HCl (Oxycodone Ir 5 Mg Tablet) 5 mg PO NOW ONE Stop: 04/18/24 17:05 Last Admin: 04/18/24 17:11 Dose: 5 mg Documented By: MICHAEL(2) Oxycodone HCl (Oxycodone Ir 5 Mg Tablet) 5 mg PO NOW ONE Stop: 04/19/24 00:53 Last Admin: 04/19/24 01:03 Dose: 5 mg Documented By: MICHAEL Oxycodone/Acetaminophen (Oxycodone/Apap 5/325 Prepack) 1 bottle MISC DIRECTED ONE Stop: 04/19/24 00:53 Last Admin: 04/19/24 01:03 Dose: 1 bottle Documented By: IMCHAEL Vital Signs Vital signs: Vital Signs - 8 hr 04/18/24 23:56 04/18/24 23:56 Pulse Rate 76 Blood Pressure 108/55 L Pulse Oximetry 99 MDM - Back Pain/Injury Lab Data Labs: Lab Results 04/18/24 Range/Units 19:38 Ur Bilirubin Confirm Negative (Negative) Urine RBC None seen (0-5/HPF) Urine WBC 5-10/hpf H (0-5/HPF) Ur Squamous Epith Cells 0-1 /hpf (0-5/HPF) Urine Bacteria Few (2-10) H (None) Vol Urine Centrifuged 10ml (spun) Urine Dip Bedside Urine Glucose Negative Bedside Urine Bilirubin + 1 Bedside Urine Ketone +/- 5 Urine Specific [place] 1.030 Bedside Urine Occult Blood - Negative Bedside Urine pH 5.5 Bedside Urine Protein +/- 15 Bedside Urine Urobilinogen - Negative Bedside Urine Nitrite - Negative Bedside Urine Leukocytes + 70 Esterase MDM Narrative Medical decision making narrative: Patient 63-year-old female history of cauda equina syndrome status post surgery presenting today with acute on chronic pain. She no longer sees primary care providers she has only been taking ibuprofen. She continues to have feeling in her rectum she has no urinary incontinence. She denies having cauda equina syndrome and symptoms today. She is wanting some kind of relief. She was previously given oxycodone which he said did work but it has definitely worn off now. This time I have low suspicion for cauda equina today. She has not had any sort of injection she has no fever no concern for an epidural abscess. He is extremely tearful and upset during our conversation. We discussed goals and expectations for this visit today. At this time I do not think she needs an emergent MRI. I do encourage her to get a new primary care provider. She may require an outpatient MRI again soon. Of note her prescription monitoring program reports that she get norco, her last prescription was March 01 for amount of 14 previously she was getting it earlier in 2023 with an amount of 56th through September, she has not had significant prescription of opiates for number of Discharge Plan Departure Patient Disposition: Home Clinical Impression: Acute exacerbation of chronic low back pain Instructions: DI for Back Pain With Sciatica Activity Restrictions/Additional Instructions: *You have been diagnosed with acute on chronic back pain *What to do: I am so sorry you have to go through this. I do think that it maybe worth getting an outpatient MRI it has not needed today. You will need to establish care with a new primary care provider. Please see my recommendations below. *Continue to take medications as directed Oxycodone 5 mg every 4-6 hours if needed for severe pain Tylenol 1000 mg every 6 hours for jlln-pb-hrolncye pain Flexeril 5 mg every 8 hours only if needed for muscle spasms Prednisone 40 mg once a day for 3-5 days *Follow up with your primary care provider in 2-3 days or call [phone] *Return to ER if you should have increasing leg weakness loss of urine fever or any new, worsening or concerning symptoms CONTROLLED SUBSTANCE DISCHARGE (Narcotoic/benzodiazepine/Flexeril/Phenergan) 1. You have been prescribed narcotic medications, it does have acetaminophen/Tylenol/paracetamol in it, DO NOT TAKE MORE THAN 4,00mg in 24 hours of Tylenol. TRAMADOL DOES NOT CONTAIN TYLENOL 2. Please understand that we cannot provide further refills of narcotics, benzodiazepines or controlled substances through the ED and her pain management will need to be through your provider. 3. While on these medications you cannot drive or operate heavy machinery. 4. You cannot sign legal documents or perform any duties such as this. 5. As long as you're taking opiate pain medications he should also be taking a stool softener such as Colace, Dulcolax, MiraLAX or prune juice, to help avoid constipation. Prescriptions: New prednisone 20 mg tablet 40 mg PO DAILY Qty: 10 0RF cyclobenzaprine 5 mg tablet 5 mg PO TID PRN (Reason: muscle spasm) Qty: 20 0RF oxycodone 5 mg tablet 5 mg PO Q6H PRN (Reason: pain) Qty: 14 0RF No Action multivitamin [Multiple Vitamins] 1 EACH tablet 1 tab PO QDAY Qty: 0 ibuprofen 200 MG tablet 200 mg PO QID PRN (Reason: Pain (Scale Score 1-3)) Qty: 0 calcium carbonate 500 MG tablet 1 tab PO DAILY Qty: 0 omega 5-zbc-brp-fish oil [Fish Oil] 1,000 MG capsule 1,000 mg PO DAILY Qty: 0 vitamin B complex [B Complex-Vitamin B12] 1 EACH tablet 1 tab PO DAILY Qty: 0 Calcium 1,000 mg 1 tab PO DAILY gabapentin 300 mg capsule 300 mg PO BID Qty: 180 3RF albuterol sulfate [Proventil HFA] 90 mcg/actuation HFA aerosol inhaler 1 puff inhalation Q4-6H PRN (Reason: Wheezing) Qty: 8.5 3RF cyclobenzaprine 5 mg tablet 5 mg PO TID PRN (Reason: muscle spasm) Qty: 10 0RF hydrocodone-acetaminophen 7.5-325 mg tablet 1 tab PO Q6H PRN (Reason: pain) Qty: 10 0RF hydrocodone-acetaminophen 5-325 mg tablet 1 tab PO Q8H PRN (Reason: pain) Qty: 10 0RF Referrals: Devon Irizarry MD [Physician] - Lance Mendoza MD [Primary Care Provider] - Iftikhar Oviedo MD [Physician] - Karlie Brown MD [Physician] - Chandni Lazo DO [Physician] - Yesica Spaulding DO [Physician] - Stand Alone Forms: Patient Portal/API/Survey
[2024-04-19] MEDS: CYCLOBENZAPRINE 10 MG PREPACK 1 BOTTLE MISC (01:03)
[2024-04-19] MEDS: OXYCODONE/APAP 5/325 PREPACK 1 BOTTLE MISC (01:03)
[2024-04-19] MEDS: OXYCODONE IR 5 MG TABLET PO (01:03)
== END 2024-04-19 01:20 | disposition home or self-care (01) ==
PROVIDERS: Emergency Provider Emergency Medicine; PCP Internal Medicine
DX: M54.50 Low back pain, unspecified (principal)
CPT/HCPCS: 81003; 81015; 87086; 99283